=== PATIENT | female | born 1960 | race African-American/Black ===

== ENCOUNTER 2025-03-04 10:29 | Outpatient (AMB) | payer MEDICARE, SELFPAY ==
--- NOTE | 2025-03-04 10:43 | A.OFFVIS_ITS ---
Vital Signs 03/04/25 10:45 Height 5 ft 3 in Weight 277 lb 12.519 oz BMI 49.2 BP 144/82 H Blood Pressure Location Rt radial Position Sitting Pulse 95 Pulse Source Pulse Oximeter Pulse Oximetry (%) 98 Oxygen Delivery Method Room Air Intake Visit Reasons: tuan Allergies No Known Allergies [No Known Allergies*] Allergy (Unverified 03/04/25 10:48) HPI HPI tuan: Details: Mere is a pleasant 64-year-old female, never smoker, with underlying asthma, hypertension, TUAN, GERD and chronic kidney disease stage III. She is referred by PCP for pulmonary evaluation for asthma and TUAN. She reports asthma was diagnosed as an adult, never requiring intubation. She endorses second hand smoke exposure in the past. She did note that she required supplemental oxygen in 2020 after bernardino COVID, which was ultimately discontinued after a few months. She denies a need for supplemental oxygen at this time. She previously used Advair with good effect however has been without for quite some time and has been using albuterol MDI frequently for ongoing dyspnea, wheezing, chest tightness and dry cough. She denies seasonal allergies. She endorses occupational exposures working in a [employer] with paper dust exposure x 16 years. She reports sister with asthma otherwise denies any pertinent family history. She reports severe obstructive sleep apnea was diagnosed in 2020 in which she was started on CPAP therapy through [facility] sleep medicine. She reports she is consistently x1 year and had notable improvement in daytime fatigue, non restorative sleep, loud snoring and witnessed apneas. Unfortunately patient has been noncompliant over the last 3 years, however is motivated to initiate therapy. DME is [employer]. [facility], [facility] Social History (Updated 03/04/25 @ 10:48 by Kat Richard [facility]) Patient Tobacco Use Status: Never used Tobacco Review of Systems Const Denies chills, Denies excessive sweating, Denies fever(s), Denies headache(s) and Denies night sweats Eyes Denies dry eyes, Denies irritation and Denies itchy eyes ENT Reports Normal hearing present, Denies headache(s), Denies nasal congestion, Denies nasal discharge, Denies post nasal drip and Denies sore throat Card Denies chest pain, Denies chest pain at rest, Denies chest pain with activity, Denies claudication, Denies leg edema, Denies dyspnea, Reports dyspnea on exertion, Denies orthopnea and Denies paroxysmal nocturnal dyspnea Resp Denies chest congestion, Reports cough, Denies excessive phlegm production, Denies pain on inspiration, Denies pain with cough, Denies dyspnea, Reports dyspnea on exertion, Denies stridor and Reports wheezing Musc Denies myalgias Neuro Reports Normal hearing present and Denies headache(s) Endo Denies excessive sweating Regis/Lymph Denies lymphadenopathy Aller/Immun Denies itchy eyes, Denies seasonal rhinorrhea and Reports wheezing Physical Exam Vital Signs: Last Vital Signs Pulse 95 03/04/25 10:45 BP 144/82 H 03/04/25 10:45 Pulse Ox 98 03/04/25 10:45 Oxygen Delivery Method Room Air 03/04/25 10:45 BMI result Body Mass Index 49.2 Const General: cooperative, healthy appearing, comfortable, no acute distress, well developed and alert Nutritional Appearance: obese Orientation/consciousness: patient oriented x3 Limitations: no limitations HEENT Head: Yes normal to inspection, Yes normocephalic and Yes atraumatic Ears: hearing grossly normal bilaterally and external ears normal Eyes General: appearance normal, both eyes and all related structures Eyelids: Yes eyelids normal Sclerae: sclerae normal EOM: EOMs intact bilaterally Neck Neck: Yes normal visual inspection and Yes no lymphadenopathy Lymphatic: no lymphadenopathy noted Chest Chest palpation & inspection: normal inspection of the chest Resp Effort & Inspection: normal respiratory effort, able to speak in complete sentences, no audible wheezes, no cough, no stridor, not tachypneic, no tripod positioning and no use of accessory muscles Auscultation: clear to auscultation bilaterally Cardio Jugular venous distension: no JVD Rate: regular rate Rhythm: regular rhythm Skin Other: warm, dry General skin exam: no rashes or lesions noted Neuro General: patient oriented x3 Cranial nerves: Yes Normal hearing present Cognition (Neuro): normal cognition Gait exam (Neuro): Normal gait present Extrem General: Yes normal to inspection, Yes capillary refill normal, Yes no clubbing, cyanosis or edema and Yes no pedal edema Psych Appearance: grossly normal and well kempt Speech and movement: Normal speech and movement present and Clear speech present Affect: normal affect Attitude: cooperative Thought process: Normal thought process present Thought content: Normal thought content present Insight: Good insight present (Psych) Judgement: Good judgement present (Psych) Assessment & Plan Assessment & Plan (1) Asthma: Code(s): J45.909 - Unspecified asthma, uncomplicated Category: Medical (2) Severe obstructive sleep apnea: Code(s): G47.33 - Obstructive sleep apnea (adult) (pediatric) Category: Medical (3) Daytime somnolence: Code(s): R40.0 - Somnolence Category: Medical Plan Mere presents for pulmonary evaluation for known history of asthma and obstructive sleep apnea. She reports asthma has been suboptimally controlled on albuterol MDI, will start Advair. Discussed importance of good oral hygiene to prevent thrush. Will send for PFT. Patient with prior diagnosis of severe obstructive sleep apnea and motivated to use CPAP therapy. There has been about a 30 lb weight gain since her last study in 2020, will send her in for an in lab titration study to ensure optimal pressures. All questions were answered and patient is in agreement of plan. Will follow-up to review results or sooner if needed. Orders: Orders PFT pulmonary function test Today J45.909 - Unspecified asthma, uncomplicated RT PSG in-lab sleep titration Today G47.33 - Obstructive sleep apnea (adult) (pediatric), R40.0 - Somnolence Medications: New fluticasone propion-salmeterol 115-21 mcg/actuation (Advair HFA) 2 puffs inhalation Q12H 12 grams 3RF albuterol sulfate 90 mcg/actuation 2 puffs inhalation Q4-6H PRN 1 ea 3RF shortness of breath or wheezing Coding Level of Care Code New Pt Level 4 (63214) Diagnoses Asthma J45.909 Severe obstructive sleep apnea G47.33 Daytime somnolence R40.0
[2025-03-04 10:45] VITALS: BP 144/82; PULSE 95; O2SAT 98; BMI 49.2
--- OUTSIDE RECORDS SUMMARY | 2025-03-04 11:08 | XMS_ITS | Clinical Summary ---
Author Organization [facility] Address [address] [place] [address] Care Team Providers Care Hedis Registered Nurse Rn Name Role Phone Joy Enriquez MD Primary Care Provider [phone] Allergies No known active allergies Medications Medication Sig Dispensed Refills Start Date End Date Status hydroCHLOROthiazide (HYDRODIURIL) tablet 12.5 mg Take 12.5 mg by mouth daily. 1 03/09/2019 Active lisinopril (PRINIVIL,ZESTRIL) tablet 40 mg Take 40 mg by mouth daily. 1 03/01/2019 Active simvastatin (ZOCOR) tablet 40 mg Take 40 mg by mouth every night at bedtime. 1 03/09/2019 Active albuterol (PROVENTIL HFA;VENTOLIN HFA) 108 (90 Base) MCG/ACT inhaler Inhale 2 puffs into the lungs. 0 02/27/2019 Active Active Problems Problem Noted Date Diagnosed Date Arthritis of knee, left 03/27/2019 Social History Tobacco Use Types Packs/Day Years Used Date Smoking Tobacco: Never Smokeless Tobacco: Never Alcohol Use Standard Drinks/Week Comments No 0 (1 standard drink = 0.6 oz pur e alcohol) Sex and Gender Information Value Date Recorded Sex Assigned at Not on file Gender Identity Not on file Sexual Orientation Not on file Last Filed Vital Signs Vital Sign Reading Time Taken Comments Blood Pressure - - Pulse - - Temperature - - Respiratory Rate - - Oxygen Saturation - - Inhaled Oxygen Concentration - - Weight 102.1 kg (225 lb) 03/27/2019 10:54 AM EDT Height 160 cm (5' 3 ) 03/27/2019 10:54 AM EDT Body Mass Index 39.86 03/27/2019 10:54 AM EDT Plan of Treatment Health Maintenance Due Date Last Done Comments Hepatitis C Screening 1960 COVID-19 Vaccine (#1) 1959 Depression Screening 1971 BMI Counseling 1977 Preventative Health Evaluation 1977 Cervical Cancer Screening (P ap Smear) 1980 Colon Cancer Screening (Colonoscopy) 2004 Breast Cancer Screening (Mammogram) 2009 Shingrix-Zoster Vaccine (1 of 2) 2009 DTap / Tdap / Td (2 - Td or Tdap) 08/02/2023 013 Fall Risk Assessment 2024 Osteoporosis Screening (DEXA Scan) 2024 Pneumococcal Vaccine (1 of 1 - PCV) 2024 Influenza Vaccine (#1) 2024 10/06/2017 RSV Adult > 60+ Yrs or Pregn ant (1 - 1-dose 75+ series) 2034 Hepatitis B Vaccines Aged Out No long er eligible based on patient's age to complete this topic Pneumococcal Vaccine Aged Out No long er eligible based on patient's age to complete this topic RSV Ped < 20 months Aged Out No longe r eligible based on patient's age to complete this topic Care Teams Hedis Registered Nurse Rn Relationship Specialty Start Date End Date Joy Enriquez MD PCP - General Internal Medicine 02/27/19
--- OUTSIDE RECORDS SUMMARY | 2025-03-04 11:08 | XMS_ITS ---
Author Organization [facility] Care Team Providers Care Police Dispatcher Name Role Phone Masha Tobias Unavailable Unavailable George Livingston Unavailable Unavailable Emilee Mendez Unavailable Unavailable Gurvinder Grant Unavailable Unavailable Allergies and adverse reactions No Known Allergies Care Team Name Role Address Phone Organization Dates George Livingston PCP [address], [place], [address], [facility] (Office): [facility] 03/11/2020 - 04/08/2020 Masha Tobias [address], [place], [address], [place] (Office): [facility] 03/11/2020 - 04/08/2020 Emilee Mendez [address], [place], [address], [facility] (Office): [facility] 03/11/2020 - 04/08/2020 Gurvinder Grant [address], [place], [address], [place] (Office): : [facility] 03/11/2020 - 04/08/2020 Immunizations Immunization Status Vaccine Details Vaccine Code CodeSystem Date Notes Influenza cancelled Influenza, split virus, trivalent, injectable, contains preservative 141 CVX created date: 03/13/2020 consent date: 03/13/2020 Pneumococcal Conjugate Vaccine (PCV13) cancelled pneumococcal conjugate vaccine, 13 valent 133 CVX created date: 03/13/2020 consent date: 03/13/2020 Educated by on 03/13/2020 Pneumococcal Polysaccharide Vaccine (PPSV23) cancelled pneumococcal polysaccharide vaccine, 23 valent 33 CVX created date: 03/13/2020 consent date: 03/13/2020 Educated by on 03/13/2020 Mental Status Section Date Assessment Total Score Description 04/08/2020 BIMS 15 cognitively int act CAM 0 No delirium ind icated PHQ-9 00 03/17/2020 BIMS 15 cognitively int act CAM 0 No delirium ind icated PHQ-9 01 minimal depress ion Problems Problem # Description Date of onset Resolved Date Code CodeSystem Concern Status 1 ACUTE RESPIRATORY FAILURE WITH HYPOXIA 03/11/[address] active 2 COVID-19 03/11/[address] active 3 ESSENTIAL (PRIMARY) HYPERTENSION 03/11/[address] active 4 MORBID (SEVERE) OBESITY DUE TO EXCESS CALORIES 03/11/[address] active 5 MUSCLE WEAKNESS (GENERALIZED) 03/11/[address] active 6 OTHER ABNORMALITIES OF GAIT AND MOBILITY 03/11/[address] active 7 OTHER ASTHMA 03/11/[address] acti ve 8 OTHER VIRAL PNEUMONIA 03/11/[address] active 9 PNEUMONIA, UNSPECIFIED ORGANISM 03/11/[address] active 10 SHORTNESS OF BREATH 03/11/[address] active Reason for Referral No Reasons for Referral Entered Social History Social History Observation Description Start Date End Date Code Code System Current Smoking Status Tobacco smoking consumption unknown 865953533 SNOMED CT Sex Assigned At Female 1960 23759-6 [facility] Gender Identity Vital Signs Code Code System Vitals Name Values and Units Timing Information 28172-5 [facility] O2 % BldC Oximetry Value=96.0 Units= % 04/08/2020 73139-1 [facility] Pain Level Value=0.0 04/08/2020 13394-7 [facility] Weight Xtjwa=954.0 Units=Lbs 9279-1 [facility] Respiratory Rate Value=18.0 Units=/m in 04/08/2020 8462-4 [facility] Blood Pressure-Diastolic Value=79 Un its=mmHg 04/08/2020 8480-6 [facility] Blood Pressure-Systolic Goaoi=960 Un its=mmHg 04/08/2020 8310-5 [facility] Body Temperature Value=97.2 Units=?? F 04/08/2020 8867-4 [facility] Heart rate Value=83.0 Units=/min 8302-2 [facility] Height Value=66.0 Units=Inches 03/12/2020
--- OUTSIDE RECORDS SUMMARY | 2025-03-04 11:08 | XMS_ITS | Clinical Summary ---
Author Organization [facility] [address] [facility] Address [address] [place] [address] Phone Care Team Providers Care Teacher Of Gifted Students Name Role Phone Joy Enriquez MD Primary Care Provider [phone] Allergies No known active allergies Medications albuterol HFA (Ventolin HFA) 90 mcg/actuation inhaler Inhale 2 Puffs into the lungs every 4 hours as needed for Cough, Wheezing or Shortness of Breath for up to 30 days. 08/19/20 21 Active acetaminophen (TYLENOL) 500 mg tablet Take 2 tablets (1,000 mg total) by mouth every 8 (eight) hours. 30 tablet 11/14/19 25 Active lisinopril (PRINIVIL,ZEST RIL) 40 mg tablet Take 1 tablet (40 mg total) by mouth at bedtime. 90 tablet 12/25/19 25 Active simvastatin (ZOCOR) 40 mg tablet TAKE 1 TABLET BY MOUTH EVERYDAY AT BEDTIME 90 tablet 1 02/05/20 25 Active hydroCHLOROthi azide (HYDRODIURIL) 25 mg tablet Take 1 tablet (25 mg total) by mouth 1 (one) time each day. 30 tablet 02/13/20 25 Active simvastatin (ZOCOR) 40 mg tablet TAKE 1 TABLET BY MOUTH EVERYDAY AT BEDTIME 08/07/20 24 025 Discontinued hydroCHLOROthi azide (HYDRODIURIL) 25 mg tablet Take 1 tablet (25 mg total) by mouth 1 (one) time each day. 30 tablet 12/25/19 25 025 Discontinued Active Problems Problem Noted Date Diagnosed Date Abnormal ankle brachial index 08/27/2024 Overview (08/27/2024): Volume plethysmography to screen for PAD. Overall normal. Left side 1.09, normal. Right side 0.95, borderline. CKD (chronic kidney disease) stage 3, GFR 30-59 ml/min ([facility] V24, [facility] V28) 03/03/2023 Anxiety 09/01/2020 COVID-19 virus infection 04/16/2020 Ventral hernia 12/24/2019 Overview (08/27/2024): Repaired 08/05 - incarcerated, adhesion lysis, mesh placed Arthritis of knee, left 03/27/2019 Asthma 03/23/2017 Prediabetes 03/23/2017 Premature atrial complexes 03/23/2017 TUAN (obstructive sleep apnea) 03/31/2016 Overview (08/27/2024): [facility] Home Polysomnogram: Date 06/24/2017; AHI 18, Unclassified apneas 0; Obstructive apneas 8; Central apneas 6; Mixed apneas 0; hypopneas 83; average oxygen saturation 95% (lowest 84% without saturations <88% for 5% or more of study) Arthritis, degenerative 03/31/2015 Onychomycosis 08/02/2013 Cervical herniated disc 11/17/2010 Degenerative disc disease, lumbar 11/17/2010 Morbid obesity with BMI of 4 5.0-49.9, adult ([facility] V24, [facility] V28) 05/14/2009 Hypercholesterolemia 08/04/2007 Asymptomatic varicose veins 07/30/2007 Esophageal reflux 07/30/2007 Hypertension 02/23/2006 Encounters Date Type Department Care Team Description 12/24/2024 1:00 PM EDT Office Visit Adult Medicine [address] [phone] Nena Andrew PA Mild intermittent asthma, unspecified whether complicated (Primary Dx); Primary hypertension; Hypercholesterolemia; TUAN (obstructive sleep apnea); Prediabetes; Morbid obesity with BMI of 45.0-49.9, adult ([facility] V24, [facility] V28); Elevated random blood glucose level; Need for vaccination against Streptococcus pneumoniae; Need for prophylactic vaccination and inoculation against influenza from Last 3 Months Immunizations Name Administration Dates Next Due Hepatitis B (Reyxlmt-K-Fekvx , Recombivax HB-Adult) 19yo and older 07/02/2005,06/02/2005 Influenza Quadravalent, MDCK , 0.5ml, preservative free (Flucelvax) 6mo and older 11/17/2023,09/02/2022,08/06/2021 Influenza Quadravalent, MDCK , 0.5ml, with preservative (Flucelvax) 6mo and older 10/06/2017 Influenza Quadrivalent, 0.5m l, preservative free (Fluarix; FluLaval; Fluzone) ages 6mo and older (Afluria) 3yo and older 07/25/2020 Influenza trivalent, 0.5mL ( Fluad) 65yo and older 12/24/2024 Influenza trivalent, 0.5mL, preservative free (Fluarix; FluLaval; Fluzone) ages 6mo and older (Afluria) 3 years and older 07/25/2020,10/15/2016 Pneumococcal conjugate 20 va lent (Prevnar 20, PCV 20) 2mo and older 12/24/2024 Td Tetanus diptheria (Tdvax) 7yo and older 06/09,02/18/2003 Tdap Tetanus diptheria acell ular pertussis (Boostrix; Adacel) 7yo and older 08/02/2013 Surgical History Surgery Date Site/Laterality Comments HERNIA REPAIR PROCEDURE: KS REPAIR FIRST ABDOMINAL WALL HERNIA TUBAL LIGATION PROCEDURE: HISTORICAL TUBAL LIGATION CHOLECYSTECTOMY PROCEDURE: HISTORICAL CHOLECYSTECTOMY COLONOSCOPY 01/04/2011 PROCEDURE: KS COLONOSCOPY FLX DX W/COLLJ SPEC WHEN PFRMD; COMMENT: Normal OTHER SURGICAL HISTORY 05/2017 PROCEDURE: MAMMOGRAM KNEE SURGERY PROCEDURE: HISTORICAL KNEE SURGERY; COMMENT: meniscus repair Medical History Medical History Date Comments Esophageal reflux 07/30/2007 DX:Esophageal reflux Asymptomatic varicose veins 07/30/2007 DX:A symptomatic varicose veins Pure hypercholesterolemia 08/04/2007 DX:Pur e hypercholesterolemia Onychomycosis 08/02/2013 DX:Onychomycosis Morbid obesity (CMS/HCC V24, CMS/HCC V28) 009 DX:Morbid obesity (HCC) TUAN (obstructive sleep apnea) 03/31/2016 DX :TUAN (obstructive sleep apnea) COVID-19 virus infection 04/16/2020 DX:COVI D-19 virus infection Anxiety 09/01/2020 DX:Anxiety Family History Medical History Relation Name Comments Breast cancer Aunt p paternal Heart attack Father 74 Hypertension Mother elevated choles terol Cervical cancer Sister Colon cancer Neg Hx Ovarian cancer Neg Hx Relation Name Status Comments Aunt p Father Mother Sister Social History Tobacco Use Types Packs/Day Years Used Date Smoking Tobacco: Never Smokeless Tobacco: Never Tobacco Cessation:Counseling Given: Not Answered Alcohol Use Standard Drinks/Week Comments No 0 (1 standard drink = 0.6 oz pur e alcohol) Comments Unknown Sex and Gender Information Value Date Recorded Sex Assigned at Female 11/13/2024 10:55 PM EST Legal Sex Female 10:35 AM EST Gender Identity Female 11/13/2024 10:55 PM EST Sexual Orientation Straight 11/13/2024 10 :55 PM EST Obstetrics History Last Filed Vital Signs Vital Sign Reading Time Taken Comments Blood Pressure 128/78 12/24/2024 1:24 PM EDT Pulse 92 12/24/2024 1:24 PM EDT Temperature 36.6 ??C (97.8 ??F) 12/24/2024 1:24 PM ED T Respiratory Rate 14 12/24/2024 1:24 PM EDT Oxygen Saturation 95% 12/24/2024 1:24 PM EDT Inhaled Oxygen Concentration - - Weight 125 kg (275 lb) 12/24/2024 1:24 PM EDT Height 160 cm (5' 3 ) 12/24/2024 1:24 PM EDT Body Mass Index 48.71 12/24/2024 1:24 PM EDT Plan of Treatment Upcoming Encounters Date Type Department Care Team (Late st Contact Info) Description 05/16/2025 10:00 AM EDT Appointment Radiology Department [address] [phone] Health Maintenance Due Date Last Done Comments COVID-19 Vaccine (#1) 1965 Hepatitis B Vaccines (3 of 3 - 19+ 3-dose series) 12/03/2005 07/02/2005, 06/02/2005 Zoster Vaccines (1 of 2) 2009 Cervical Cancer Screening: Pap Smear 11/05/2016 11/05/2013, 11/05/2013 RSV Immunization Adult Patients (1 - Risk 60-74 years 1-dose series) 2019 Depression Screening 09/25/2022 Medicare Annual Wellness Visit 09/25/2022 Social Influencers of Health Screening 09/25/2022 Falls Risk Assessment 2024 Hypertension/CHF/CAD Annual BMP Blood Test 11/13/2025 11/13/2024, 11/17/2023 Breast Cancer Screening 05/04/2026 05/04/20, 05/04/2024, 03/19/2023, Additional history exists Cholesterol Screening (Lipid Panel) 11/17/2028 11/17/2023 Colorectal Cancer Screening: Colonoscopy 04/22/2031 04/22/2021 DTaP,Tdap,and Td Vaccines (4 - Td or Tdap) 06/09/2033 06/09/2023, 08/02/2013, 02/18/2003 Osteoporosis Screening (Bone Density Screening) 09/18/2034 09/18/2024 Hepatitis C Screening Completed 09/29/2009 Influenza Vaccine Completed 12/24/2024, , 09/02/2022, Additional history exists Pneumococcal Vaccine: 50+ Years Completed 12/24/2024 Pneumococcal Vaccine: Pediatrics (0 to 5 Years) and At-Risk Patients (6 to 64 Years) Completed 12/24/2024 HIB Vaccines Aged Out No longer eligi ble based on patient's age to complete this topic HPV Vaccines Aged Out No longer eligi ble based on patient's age to complete this topic Hepatitis A Vaccines Aged Out No long er eligible based on patient's age to complete this topic IPV Vaccines Aged Out No longer eligi ble based on patient's age to complete this topic MMR Vaccines Aged Out No longer eligi ble based on patient's age to complete this topic Meningococcal ACWY Vaccine Aged Out N o longer eligible based on patient's age to complete this topic Meningococcal B Vaccine Aged Out No l onger eligible based on patient's age to complete this topic RSV Immunization Patients Under 20 months Aged Out No longer eligible based on patient's age to complete this topic Varicella Vaccines Aged Out No longer eligible based on patient's age to complete this topic Procedures Procedure Name Priority Date/Time Associated Diagnosis Comments COMPREHENSIVE METABOLIC PANEL STAT 11/13/2024 6:54 PM EST BD BONE DENSITY DXA AXIAL SKELETON Routine 09/18/2024 2:24 PM EST Asymptomatic menopausal state SCREENING MAMMOGRAPHY BI 2-VIEW BREAST INC CAD Routine 05/04/2024 1:18 PM EDT Encounter for screening mammogram for malignant neoplasm of breast LIPID PANEL Routine 11/17/2023 HM COLONOSCOPY Routine 04/22/2021 HM HPV Routine 11/05/2013 HM HEPATITIS C SCREENING Routine 09/29/2009 from Last 3 Months or Most Recently Relevant to Health Maintenance Results * (ABNORMAL) Comprehensive metabolic panel (11/13/2024 6:54 PM EST) Sodium 138 133 - 145 mmol/L LAB CHEMISTRY METHOD 11/13/2024 7:46 PM [facility] Potassium 3.3(L) 3.5 - 5.5 mmol/L LAB CHEMISTRY METHOD 11/13/2024 7:46 PM [facility] Chloride 107 96 - 110 mmol/L LAB CHEMISTRY METHOD 11/13/2024 7:46 PM [facility] CO2 28 21 - 32 mmol/L LAB CHEMISTRY METHOD 11/13/2024 7:46 PM [facility] Anion Gap 3 3 - 11 LAB CHEMISTRY METHOD 11/13/2024 7:46 PM [facility] Glucose 104(H) 70 - 100 mg/dL LAB CHEMISTRY METHOD 11/13/2024 7:46 PM [facility] BUN 11 5 - 25 mg/dL LAB CHEMISTRY METHOD 11/13/2024 7:46 PM [facility] Creatinine 1.00 0.50 - 1.10 mg/dL LAB CHEMISTRY METHOD 11/13/2024 7:46 PM EST [facility] eGFR 63 >=60 mL/min/1. 73m2 LAB CHEMISTRY METHOD 11/13/2024 7:46 PM [facility] Comment:Calculation based on the??Chronic Kidney Disease Epidemiology Collaboration (CKD-EPI) equation refit??without adjustment for race. BUN/Creatinine Ratio 11.0 LAB CHEMISTRY METHOD 11/13/2024 7:46 PM [facility] Calcium 9.4 8.5 - 10.5 mg/dL LAB CHEMISTRY METHOD 11/13/2024 7:46 PM [facility] AST (SGOT) 62(H) 10 - 42 unit/L LAB CHEMISTRY METHOD 11/13/2024 7:46 PM [facility] ALT (SGPT) 36 10 - 60 unit/L LAB CHEMISTRY METHOD 11/13/2024 7:46 PM [facility] Alkaline Phosphatase 84 42 - 121 unit/L LAB CHEMISTRY METHOD 11/13/2024 7:46 PM [facility] Total Protein 7.1 6.0 - 8.0 g/dL LAB CHEMISTRY METHOD 11/13/2024 7:46 PM [facility] Albumin 3.4 3.2 - 5.0 g/dL LAB CHEMISTRY METHOD 11/13/2024 7:46 PM [facility] Total Bilirubin 0.4 0.0 - 1.4 mg/dL LAB CHEMISTRY METHOD 11/13/2024 7:46 PM [facility] Blood Venous blood specimen / Unknown Venipuncture / Unknown 11/13/2024 6:54 PM EST 11/13/2024 7:08 PM EST us Kendrick Bailey MD LAB BLOOD ORDERABLES Final Res ult [facility] [address] [place] [address], * BD Bone Density DXA Axial Skeleton (09/18/2024 2:24 PM EST) Anatomical Region Laterality Modality Wrist, Hip, L-spine Bone Densito metry 09/18/2024 2:55 PM EST Impressions 09/18/2024 2:56 PM EST Impression: This patient is considered to have osteopenia by WHO criteria. This patient has a less than 0.1% risk of major osteoporotic fracture and a less than 0.1% risk of hip fracture over the next 10 years. (World Health Organization Fracture Risk Assessment) [facility] Department of Internal Medicine recommends using National Osteoporosis Foundation (NOF) guidelines in treatment decisions related to osteoporosis. NOF guidelines suggest considering treatment for postmenopausal women and men aged 50 or older presenting with the following: History of hip or vertebral fracture. T-score = -2.5 (DXA) at the femoral neck, total hip, or spine, after appropriate evaluation to exclude secondary causes. Low bone mass (T-score between -1.0 and -2.5 at the femoral neck or spine) AND a 10-year probability of a hip fracture = 3% OR a 10-year probability of a major osteoporosis-related fracture = 20% based on the [place]-adapted WHO algorithm Please note that all treatment decisions require clinical judgment and consideration of individual patient factors, including patient preferences, co-morbidities, previous drug use, risk factors not captured in the FRAX model (e.g., frailty, falls, vitamin D deficiency, increased bone turnover, interval significant decline in bone density) and possible under- or over-estimation of fracture risk by FRAX. Optional alternative screening schedule based on halima Gonzalez., [facility] November 04, 2011 for patients with osteopenia (based on hip BMD T-score) is as follows: * ??advanced osteopenia (T scores -2.00 to -2.49), BMD testing every year * ??moderate osteopenia (T scores -1.50 to -1.99), BMD testing every 5 years mild osteopenia or normal BMD (T scores -1.50 and higher), BMD testing every 15 years -------- FINAL REPORT -------- Dictated By: Gretta Christie Dictated Date: 09/18/2024 14:55 ET Assigned Physician: Gretta Christie Reviewed and Electronically Signed By: Gretta Christie Signed Date: 09/18/2024 14:56 ET Workstation ID: [id number] Transcribed By: Self Edit Transcribed Date: 09/18/2024 14:55 ET Narrative 09/18/2024 2:56 PM EST BONE DENSITY (DEXA) ? Lumbar Spine T-score is 1.2. ?? (SD relative to 20-29 y/o adult) Z-score is 2.3. ??(SD relative to age matched peers) This is considered normal by WHO criteria. Left Hip T-score is -1.2. Z-score is -0.4. This is considered osteopenia by WHO criteria. Lateral view of the spine demonstrates vertebral heights to be maintained. Procedure Note Gretta Christie MD - 09/18/2024 BONE DENSITY (DEXA) Lumbar Spine T-score is 1.2. (SD relative to 20-29 y/o adult) Z-score is 2.3. (SD relative to age matched peers) This is considered normal by WHO criteria. Left Hip T-score is -1.2. Z-score is -0.4. This is considered osteopenia by WHO criteria. Lateral view of the spine demonstrates vertebral heights to bemaintained. IMPRESSION: Impression: This patient is considered to have osteopenia by WHO criteria. Thispatient has a less than 0.1% risk of major osteoporotic fracture and aless than 0.1% risk of hip fracture over the next 10 years. (World HealthOrganization Fracture Risk Assessment) [facility] Department of Internal Medicine recommendsusing National Osteoporosis Foundation (NOF) guidelines in treatmentdecisions related to osteoporosis. NOF guidelines suggest consideringtreatment for postmenopausal women and men aged 50 or older presentingwith the following: History of hip or vertebral fracture. T-score = -2.5 (DXA) at the femoral neck, total hip, or spine, afterappropriate evaluation to exclude secondary causes. Low bone mass (T-score between -1.0 and -2.5 at the femoral neck or spine)AND a 10-year probability of a hip fracture = 3% OR a 10-year probabilityof a major osteoporosis-related fracture = 20% based on the [place]-adapted WHOalgorithm Please note that all treatment decisions require clinical judgment andconsideration of individual patient factors, including patientpreferences, co-morbidities, previous drug use, risk factors not capturedin the FRAX model (e.g., frailty, falls, vitamin D deficiency, increasedbone turnover, interval significant decline in bone density) and possibleunder- or over-estimation of fracture risk by FRAX. Optional alternative screening schedule based on lay Gonzalez al., [place] 2011 for patients with osteopenia (based on hip BMD T-score)is as follows: * advanced osteopenia (T scores -2.00 to -2.49), BMD testing every year * moderate osteopenia (T scores -1.50 to -1.99), BMD testing every 5years mild osteopenia or normal BMD (T scores -1.50 and higher), BMD testingevery 15 years -------- FINAL REPORT -------- Dictated By: Gretta Christie Dictated Date: 09/18/2024 14:55 ET Assigned Physician: Gretta Christie Reviewed and Electronically Signed By: Gretta Christie Signed Date: 09/18/2024 14:56 ET Workstation ID: [id number] Transcribed By: Self Edit Transcribed Date: 09/18/2024 14:55 ET Joy Enriquez MD IMG DXA PROCEDURES Final Result * SCREENING MAMMOGRAPHY BI 2-VIEW BREAST INC CAD (05/04/2024 1:18 PM EDT) Anatomical Region Laterality Modality Radiographic Patricia ging 03/19/2023 1:37 PM EDT Narrative 05/07/2024 8:16 AM EDT This is a summary report. The complete report is available in the patient's medical record. If you cannot access the medical record, please contact the sending organization for a detailed fax or copy. Exam: Screening mammogram Findings: Digital bilateral full-field screening mammography is performed with tomosynthesis and interpreted with the aid of computer-aided detection. ??Comparison is made with 03/19/2023 and as far back as 07/02/2019. Breast parenchyma is composed of scattered fibroglandular densities. ??No new suspicious mass, architectural distortion, or suspicious calcifications. Impression: No mammographic evidence of malignancy. BI-RADS 1 - negative Procedure Note Angely Coburn MD - 08/01/2024 This is a summary report. The complete report is available in thepatient's medical record. If you cannot access the medical record, pleasecontact the sending organization for a detailed fax or copy. Exam: Screening mammogram Findings: Digital bilateral full-field screening mammography is performedwith tomosynthesis and interpreted with the aid of computer-aideddetection. Comparison is made with 03/19/2023 and as far back as07/02/2019. Breast parenchyma is composed of scattered fibroglandular densities. Nonew suspicious mass, architectural distortion, or suspiciouscalcifications. Impression: No mammographic evidence of malignancy. BI-RADS 1 - negative Anjelica ALVES IMG XR PROCEDURES Final Result * (ABNORMAL) Lipid panel (11/17/2023) [facility] LDL/HDL Ratio 3 0 - 4 Triglycerides 97 0 - 150 mg/dL Cholesterol 206(A) 0 - 200 mg/dL HDL 60 >=40 mg/dL LDL Cholesterol 127(A) 0 - 100 mg/dL Blood Venous blood specimen / Unknown Result [facility] Provider LAB BLOOD ORDERABLES Parisa gomez Result * Colonoscopy (04/22/2021) [facility] Colonoscopy No Interpretation , Abstracted Anatomical Region Laterality Modality Other Result [facility] Provider HEALTH MAINTENANCE Final Result * Cervical Cancer Screening: HPV (11/05/2013) [facility] Cervical Cancer Screening: HPV Negative, Abstracted Result [facility] Provider HEALTH MAINTENANCE Final Result * Hepatitis C Screening (09/29/2009) [facility] Hepatitis C Screening Abstracted us Historical Provider HEALTH MAINTENANCE Final Result from Last 3 Months or Most Recently Relevant to Health Maintenance Insurance [employer] MEDICARE [employer]VANTAGE Care Teams Teacher Of Gifted Students Relationship Specialty Start Date End Date Joy Enriquez MD [address] [place] [id number] PCP - General 05/31/05
== END 2025-03-04 11:16 | disposition home or self-care (01) ==
LOC: HO.HPS 10:30
PROVIDERS: PCP Internal Medicine; Referring Provider Internal Medicine; Visit Provider Nurse Practitioner Family
DX: J45.909 Unspecified asthma, uncomplicated (principal); G47.33 Obstructive sleep apnea (adult) (pediatric); R40.0 Somnolence
CPT/HCPCS: 99204

== ENCOUNTER → 2025-03-04 10:29 | Outpatient (BNVA) | payer MEDICARE, SELFPAY | PROVIDERS: PCP Internal Medicine; Referring Provider Internal Medicine; Visit Provider Nurse Practitioner Family | DX: J45.909 Unspecified asthma, uncomplicated (principal); G47.33 Obstructive sleep apnea (adult) (pediatric); R40.0 Somnolence | CPT/HCPCS: 99202 ==

== ENCOUNTER → 2025-03-25 20:30 | Outpatient (REF) | payer MEDICARE, SELFPAY ==
--- OUTSIDE RECORDS SUMMARY | 2025-03-25 23:21 | XMS_ITS | Clinical Summary ---
Author Organization [facility] Address [address] [place] [address] Care Team Providers Care Painter Airbrush Name Role Phone Joy Enriquez MD Primary Care Provider [phone] Allergies No known active allergies Medications Medication [...] of 1 - PCV) 2024 Influenza Vaccine (Season Ended) 2025 10/06/20 17 RSV Adult > 60+ Yrs or Pregn [...] age to complete this topic Care Teams Painter Airbrush Relationship Specialty Start Date End Date Joy Enriquez MD PCP - General Internal Medicine 02/27/19
== END ==
LOC: HO.SL 20:30
PROVIDERS: PCP Internal Medicine; Visit Provider Nurse Practitioner Family
DX: G47.33 Obstructive sleep apnea (adult) (pediatric) (principal); R40.0 Somnolence
CPT/HCPCS: 95810; 95811

== ENCOUNTER → 2025-03-25 20:30 | Outpatient (BNV) | payer MEDICARE, SELFPAY | PROVIDERS: PCP Internal Medicine; Visit Provider Internal Medicine | DX: R06.83 Snoring (principal) | CPT/HCPCS: 95811 ==

== ENCOUNTER 2025-04-29 09:59 | Outpatient (AMB) | payer MEDICARE, SELFPAY ==
[2025-04-29 10:14] VITALS: BP 139/63; PULSE 98; RESP 22; O2SAT 95; BMI 48.2
--- NOTE | 2025-04-29 10:14 | A.OFFVIS_ITS ---
Vital Signs 04/29/25 10:14 Height 5 ft 3 in Weight 272 lb 4.334 oz BMI 48.2 BP 139/63 Blood Pressure Location Rt brachial Position Sitting Respiration 22 H Pulse 98 Pulse Source Pulse Oximeter Pulse Oximetry (%) 95 Oxygen Delivery Method Room Air Intake Visit Reasons: Obstructive sleep apnea Illusionist Required: No Allergies No Known Allergies (No Known Allergies*) Allergy (Verified 04/29/25 10:14) HPI HPI Obstructive sleep apnea: Details: Mere is a pleasant 65-year-old female, never smoker, with underlying asthma, hypertension, TUAN, GERD and chronic kidney disease stage III. She reports experiencing shortness of breath primarily when walking or engaging in physical activity, with associated dry cough which has been exacerbated since bernardino COVID-19 in 2019. The patient has a history of asthma, which predates her COVID- 19 infection, and she has been using Advair, although she reports no improvement in symptoms with the current dosage. Regarding her sleep apnea, the patient underwent a sleep study which confirmed mild sleep apnea with an apnea-hypopnea index of 12.8 and oxygen desaturation below 88% for 40 minutes. She has been using a BiPAP machine, which is over three years old and reports issues with the machine's pressure settings. The patient previously used a BiPAP machine and is now advised to switch to CPAP mode with auto pressures. Prior PSG 2020 revealed severe obstructive sleep apnea. [facility] Social History (Updated 03/04/25 @ 10:48 by Kat Richard CMA) Patient Tobacco Use Status: Never used Tobacco Review of Systems Const Denies chills, Denies excessive sweating, Denies fever(s), Denies headache(s) and Denies night sweats Eyes Denies dry eyes, Denies irritation and Denies itchy eyes ENT Reports Normal hearing present, Denies headache(s), Denies nasal congestion, Denies nasal discharge, Denies post nasal drip and Denies sore throat Card Denies chest pain, Denies chest pain at rest, Denies chest pain with activity, Denies claudication, Denies leg edema, Denies dyspnea, Reports dyspnea on exertion, Denies orthopnea and Denies paroxysmal nocturnal dyspnea Resp Denies chest congestion, Reports cough, Denies excessive phlegm production, Denies pain on inspiration, Denies pain with cough, Denies dyspnea, Reports dyspnea on exertion, Denies stridor and Reports wheezing Musc Denies myalgias Neuro Reports Normal hearing present and Denies headache(s) Endo Denies excessive sweating Regis/Lymph Denies lymphadenopathy Aller/Immun Denies itchy eyes, Denies seasonal rhinorrhea and Reports wheezing Physical Exam Vital Signs: Last Vital Signs Pulse 98 04/29/25 10:14 Resp 22 H 04/29/25 10:14 BP 139/63 04/29/25 10:14 Pulse Ox 95 04/29/25 10:14 Oxygen Delivery Method Room Air 04/29/25 10:14 BMI result Body Mass Index 48.2 Const General: cooperative, healthy appearing, comfortable, no acute distress, well developed and alert Nutritional Appearance: obese Orientation/consciousness: patient oriented x3 Limitations: no limitations HEENT Head: Yes normal to inspection, Yes normocephalic and Yes atraumatic Ears: hearing grossly normal bilaterally and external ears normal Eyes General: appearance normal, both eyes and all related structures Eyelids: Yes eyelids normal Sclerae: sclerae normal EOM: EOMs intact bilaterally Neck Neck: Yes normal visual inspection and Yes no lymphadenopathy Lymphatic: no lymphadenopathy noted Chest Chest palpation & inspection: normal inspection of the chest Resp Effort & Inspection: normal respiratory effort, able to speak in complete sen tences, no audible wheezes, no cough, no stridor, not tachypneic, no tripod positioning and no use of accessory muscles Auscultation: clear to auscultation bilaterally Cardio Jugular venous distension: no JVD Rate: regular rate Rhythm: regular rhythm Skin Other: warm, dry General skin exam: no rashes or lesions noted Neuro General: patient oriented x3 Cranial nerves: Yes Normal hearing present Cognition (Neuro): normal cognition Gait exam (Neuro): Normal gait present Extrem General: Yes normal to inspection, Yes capillary refill normal, Yes no clubbing, cyanosis or edema and Yes no pedal edema Psych Appearance: grossly normal and well kempt Speech and movement: Normal speech and movement present and Clear speech present Affect: normal affect Attitude: cooperative Thought process: Normal thought process present Thought content: Normal thought content present Insight: Good insight present (Psych) Judgement: Good judgement present (Psych) Assessment & Plan Assessment & Plan (1) Asthma: Code(s): J45.909 - Unspecified asthma, uncomplicated Category: Medical (2) Obstructive sleep apnea: Code(s): G47.33 - Obstructive sleep apnea (adult) (pediatric) Category: Medical (3) Nocturnal hypoxemia: Code(s): G47.34 - Idiopathic sleep related nonobstructive alveolar hypoventilation Category: Medical (4) Daytime somnolence: Code(s): R40.0 - Somnolence Category: Medical Plan Will increase Advair from 115 mcg to 230 mcg with instructions to use two puffs twice a day and to rinse the mouth after use. A chest x-ray is recommended to assess lung condition, given the worsening of symptoms [id number]. The patient is advised to undergo a PFT scheduled for May 23 to evaluate lung function further. For sleep apnea, a new order will be sent to adjust the CPAP machine settings to auto pressures 6-20 cmH20 to [employer]. Once established on CPAP therapy, will send for overnight oximetry to ensure resolution of nocturnal hypoxemia with CPAP use. The patient will be monitored closely, with a follow- up scheduled in 8 to 10 weeks to review CPAP reports and assess the effectiveness of the treatment adjustments. All questions were answered and patient is in agreement of plan. Orders: Orders XR chest 2V Today R05.3 - Chronic cough Medications: New fluticasone propion-salmeterol 230-21 mcg/actuation (Advair HFA) 2 puffs inhalation Q12H 12 grams 6RF Discontinued fluticasone propion-salmeterol 115-21 mcg/actuation (Advair HFA) Discontinued Reason: Patient Completed Course 2 puffs inhalation Q12H 12 grams 3RF Coding Level of Care Code Est Pt Level 4 (52682) Diagnoses Asthma J45.909 Obstructive sleep apnea G47.33 Nocturnal hypoxemia G47.34 Daytime somnolence R40.0
--- OUTSIDE RECORDS SUMMARY | 2025-04-29 10:36 | XMS_ITS | Clinical Summary ---
Author Organization [facility] Address [address] [place] [address] Care Team Providers Care Day Care Home Mother Name Role Phone Joy Enriquez MD Primary Care Provider [phone] Allergies No known active allergies Medications Medication [...] BMI Counseling 1977 Preventative Health Evaluation 1977 Colon Cancer Screening (Colonoscopy) 2004 Breast Cancer Screening (Mammogram) 2009 Shingrix-Zoster Vaccine (1 of 2) 2009 DTap / Tdap / Td (2 - Td or Tdap) 08/02/2023 013 Fall Risk Assessment 2024 Osteoporosis Screening (DEXA Scan) 2024 Pneumococcal Vaccine (1 of 1 - PCV) 2024 Influenza Vaccine (#1) 2025 10/06/2017 RSV Adult > 60+ Yrs or Pregn ant (1 - 1-dose 75+ series) 2034 Hepatitis B Vaccines Aged Out No long er eligible based on patient's age to complete this topic RSV Ped < 20 months Aged Out No longe r eligible based on patient's age to complete this topic Care Teams Day Care Home Mother Relationship Specialty Start Date End Date Joy Enriquez MD PCP - General Internal Medicine 02/27/19
--- OUTSIDE RECORDS SUMMARY | 2025-04-29 10:36 | XMS_ITS | Clinical Summary ---
Author Organization [facility] [address] [facility] Address [address] [place] [address] Phone Care Team Providers Care Top Distribution Executive Name Role Phone Joy Enriquez MD Primary Care Provider [phone] Allergies No known active allergies Medications albuterol HFA (Ventolin HFA) 90 mcg/actuation inhaler Inhale 2 Puffs into the lungs every 4 hours as needed for Cough, Wheezing or Shortness of Breath for up to 30 days. 1 Active acetaminophen (TYLENOL) 500 mg tablet Take 2 tablets (1,000 mg total) by mouth every 8 (eight) hours. 30 tablet 5 Active lisinopril (PRINIVIL,ZESTR IL) 40 mg tablet Take 1 tablet (40 mg total) by mouth at bedtime. 90 tablet 5 Active simvastatin (ZOCOR) 40 mg tablet TAKE 1 TABLET BY MOUTH EVERYDAY AT BEDTIME 90 tablet 1 5 Active hydroCHLOROthia zide (HYDRODIURIL) 25 mg tablet Take 1 tablet (25 mg total) by mouth 1 (one) time each day. 90 tablet 5 Active Active Problems Problem Noted Date Diagnosed Date Abnormal ankle brachial index 08/27/2024 Overview (08/27/2024): Volume plethysmography to screen for PAD. Overall normal. Left side 1.09, normal. Right side 0.95, borderline. CKD (chronic kidney disease) stage 3, GFR 30-59 ml/min (CMS/HCC V24, CMS/HCC V28) 03/03/2023 Anxiety 09/01/2020 COVID-19 virus infection 04/16/2020 Ventral hernia 12/24/2019 Overview (08/27/2024): Repaired 08/05 - incarcerated, adhesion lysis, mesh placed Arthritis of knee, left 03/27/2019 Asthma 03/23/2017 Prediabetes 03/23/2017 Premature atrial complexes 03/23/2017 TUAN (obstructive sleep apnea) 03/31/2016 Overview (08/27/2024): [facility] Home Polysomnogram: Date 06/24/2017; AHI 18, Unclassified apneas 0; Obstructive apneas 8; Central apneas 6; Mixed apneas 0; hypopneas 83; average oxygen saturation 95% (lowest 84% without saturations <88% for 5% or more of study) Arthritis, degenerative 03/31/2015 Onychomycosis 08/02/2013 Cervical herniated disc 11/17/2010 Degenerative disc disease, lumbar 11/17/2010 Morbid obesity with BMI of 4 5.0-49.9, adult ([facility] V24, [facility] V28) 05/14/2009 Hypercholesterolemia 08/04/2007 Asymptomatic varicose veins 07/30/2007 Esophageal reflux 07/30/2007 Hypertension 02/23/2006 Immunizations Name Administration Dates Next Due Hepatitis B (Otpfmxh-S-Ezwbr , Recombivax HB-Adult) 19yo and older 07/02/2005,06/02/2005 [...] Surgery Date Site/Laterality Comments HERNIA REPAIR PROCEDURE: RI REPAIR FIRST ABDOMINAL WALL HERNIA TUBAL LIGATION PROCEDURE: HISTORICAL TUBAL LIGATION CHOLECYSTECTOMY PROCEDURE: HISTORICAL CHOLECYSTECTOMY COLONOSCOPY 01/04/2011 PROCEDURE: RI COLONOSCOPY FLX DX W/COLLJ SPEC WHEN PFRMD; [...] 92 12/24/2024 1:24 PM EDT Temperature 36.6 C (97.8 F) 12/24/2024 1:24 PM EDT Respiratory Rate 14 12/24/2024 1:24 PM EDT [...] 05/16/2025 10:00 AM EDT Appointment Radiology Department - [address] [phone] 06/28/2025 9:45 AM EDT Office Visit Adult Medicine [address] [phone] Joy Enriquez MD [address] [place] [id number] Health Maintenance Due Date Last Done Comments COVID-19 Vaccine (#1) 1964 Zoster Vaccines (1 of 2) 1978 Hepatitis B Vaccines (3 of 3 - 19+ 3-dose series) 12/03/2005 07/02/2005, 06/02/2005 RSV Immunization Adult Patients (1 - Risk 60-74 years 1-dose series) 2019 Depression Screening 09/25/2022 Medicare Annual Wellness Visit 09/25/2022 Social Influencers of Health Screening 09/25/2022 Falls Risk Assessment 2024 Influenza Vaccine (#1) 2025 , 11/17/2023, 09/02/2022, Additional history exists Hypertension/CHF/CAD Annual BMP Blood Test 03/06/2026 03/06/2025, 11/13/2024, 11/17/2023 Breast Cancer Screening 05/04/2026 05/04/20 24, 05/04/2024, 03/19/2023, Additional history exists Cholesterol Screening (Lipid Panel) 03/06/2030 03/06/2025, 11/17/2023 Colorectal Cancer Screening: Colonoscopy 04/22/2031 04/22/2021 DTaP,Tdap,and Td Vaccines (4 - Td or Tdap) 06/09/2033 06/09/2023, 08/02/2013, 02/18/2003 Osteoporosis Screening (Bone Density Screening) 09/18/2034 09/18/2024 Hepatitis C Screening Completed 09/29/2009 Pneumococcal Vaccine: 50+ Years Completed 12/24/2024 HIB Vaccines Aged Out No [...] Procedure Name Priority Date/Time Associated Diagnosis Comments CBC WITH AUTO DIFFERENTIAL Routine 03/06/2025 10:33 AM EDT Mild intermittent asthma, unspecified whether complicated Primary hypertension Hypercholesterolemia TUAN (obstructive sleep apnea) Prediabetes Morbid obesity with BMI of 45.0-49.9, adult (CMS/HCC V24, CMS/HCC V28) LIPID PANEL WITH REFLEX TO DIRECT LDL Routine 03/06/2025 10:33 AM EDT Mild intermittent asthma, unspecified whether complicated Primary hypertension Hypercholesterolemia TUAN (obstructive sleep apnea) Prediabetes Morbid obesity with BMI of 45.0-49.9, adult (CMS/HCC V24, CMS/HCC V28) COMPREHENSIVE METABOLIC PANEL Routine 03/06/2025 10:33 AM EDT Mild intermittent asthma, unspecified whether complicated Primary hypertension Hypercholesterolemia TUAN (obstructive sleep apnea) Prediabetes Morbid obesity with BMI of 45.0-49.9, adult ([facility] V24, [facility] V28) CBC AND DIFFERENTIAL Routine 03/06/2025 10:33 AM EDT Mild intermittent asthma, unspecified whether complicated Primary hypertension Hypercholesterolemia TUAN (obstructive sleep apnea) Prediabetes Morbid obesity with BMI of 45.0-49.9, adult ([facility] V24, [facility] V28) HEMOGLOBIN A1C Routine 03/06/2025 10:33 AM EDT Elevated random blood glucose level BD BONE DENSITY DXA AXIAL SKELETON Routine 09/18/2024 2:24 PM EST Asymptomatic menopausal state SCREENING MAMMOGRAPHY BI 2-VIEW BREAST INC CAD Routine 05/04/2024 1:18 PM EDT Encounter for screening mammogram for malignant neoplasm of breast COLONOSCOPY Routine 04/22/2021 HEPATITIS C SCREENING Routine 09/29/2009 from Last 3 Months or Most Recently Relevant to Health Maintenance Results * Lipid panel with reflex to direct LDL (03/06/2025 10:33 AM EDT) Cholesterol 163 0 - 200 mg/dL LAB CHEMISTRY METHOD 03/06/2025 12:32 PM EDT [facility] Triglycerides 76 0 - 150 mg/dL LAB CHEMISTRY METHOD 03/06/2025 12:32 PM EDT [facility] HDL 60 >=40 mg/dL LAB CHEMISTRY METHOD 03/06/2025 12:32 PM EDT [facility] LDL Calculated 88 0 - 100 mg/dL LAB CHEMISTRY METHOD 03/06/2025 12:32 PM T [facility] VLDL Cholesterol Kj 15.2 mg/dL LAB CHEMISTRY METHOD 03/06/2025 12:32 PM EDT [facility] Non HDL Chol. (LDL+VLDL) 103 <145 mg/dL LAB CHEMISTRY METHOD 03/06/2025 12:32 PM EDT [facility] Chol/HDL Ratio 2.7 0.0 - 4.4 LAB CHEMISTRY METHOD 03/06/2025 12:32 PM T [facility] Blood Venous blood specimen / Unknown Venipuncture / Unknown 03/06/2025 10:33 AM EDT 03/06/2025 10:33 AM EDT us Nena ALVES LAB BLOOD ORDERABLES Final Re sult [facility] [address] [place] [address], [place] [phone] * (ABNORMAL) CBC auto differential (03/06/2025 10:33 AM EDT) WBC 4.4(L) 4.8 - 10.8 K/mcL LAB HEMETOLOGY METHOD 03/06/2025 12:13 PM EDT [facility] RBC 4.60 3.80 - 4.80 M/mcL LAB HEMETOLOGY METHOD 03/06/2025 12:13 PM [facility] Hemoglobin 13.8 11.5 - 16.0 g/dL LAB HEMETOLOGY METHOD 03/06/2025 12:13 PM EDT [facility] Hematocrit 41.7 35.0 - 47.0 % LAB HEMETOLOGY METHOD 03/06/2025 12:13 PM [facility] MCV 90.8 79.0 - 98.0 FL LAB HEMETOLOGY METHOD 03/06/2025 12:13 PM [facility] MCH 30.1 27.0 - 32.0 pcg LAB HEMETOLOGY METHOD 03/06/2025 12:13 PM EDT [facility] MCHC 33.1 32.0 - 37.0 g/dL LAB HEMETOLOGY METHOD 03/06/2025 12:13 PM [facility] RDW 13.0 11.0 - 15.0 % LAB HEMETOLOGY METHOD 03/06/2025 12:13 PM [facility] Platelets 177 130 - 400 K/mcL LAB HEMETOLOGY METHOD 03/06/2025 12:13 PM [facility] MPV 11.6(H) 7.0 - 11.0 FL LAB HEMETOLOGY METHOD 03/06/2025 12:13 PM [facility] NRBC 0.0 <1.0 % LAB HEMETOLOGY METHOD 03/06/2025 12:13 PM [facility] NRBC Absolute 0.00 <0.10 K/mcL LAB HEMETOLOGY METHOD 03/06/2025 12:13 PM [facility] Neutrophils Relative 40.5 % LAB HEMETOLOGY METHOD 03/06/2025 12:13 PM [facility] Lymphocytes Relative 48.6 % LAB HEMETOLOGY METHOD 03/06/2025 12:13 PM [facility] Monocytes Relative 7.5 % LAB HEMETOLOGY METHOD 03/06/2025 12:13 PM [facility] Eosinophils Relative 2.7 % LAB HEMETOLOGY METHOD 03/06/2025 12:13 PM [facility] Basophils Relative 0.5 % LAB HEMETOLOGY METHOD 03/06/2025 12:13 PM [facility] Immature Granulocytes Relative 0.2 % LAB HEMETOLOGY METHOD 03/06/2025 12:13 PM [facility] Neutrophils Absolute 1.79 1.50 - 7.00 K/mcL LAB HEMETOLOGY METHOD 03/06/2025 12:13 PM [facility] Lymphocytes Absolute 2.15 1.00 - 5.00 K/mcL LAB HEMETOLOGY METHOD 03/06/2025 12:13 PM EDT [facility] Monocytes Absolute 0.33 0.20 - 1.00 K/[facility] LAB HEMETOLOGY METHOD 03/06/2025 12:13 PM EDT [facility] Eosinophils Absolute 0.12 0.00 - 0.50 K/[facility] LAB HEMETOLOGY METHOD 03/06/2025 12:13 PM EDT [facility] Basophils Absolute 0.02 0.00 - 0.20 K/[facility] LAB HEMETOLOGY METHOD 03/06/2025 12:13 PM EDT [facility] Immature Granulocytes Absolute 0.01 0.00 - 0.03 K/[facility] LAB HEMETOLOGY METHOD 03/06/2025 12:13 PM EDT [facility] Blood Venous blood specimen / Unknown Venipuncture / Unknown 03/06/2025 10:33 AM EDT 03/06/2025 10:33 AM EDT us Nena ALVES LAB BLOOD ORDERABLES Final Re sult [facility] [address] [place] [address], * Hemoglobin A1c (03/06/2025 10:33 AM EDT) Hemoglobin A1C 5.4 <6.5 % LAB CHEMISTRY METHOD 03/08/2025 2:35 PM EDT [facility] Mean Bld Glu Estim. 108 mg/dL LAB CHEMISTRY METHOD 03/08/2025 2:35 PM EDT [facility] Blood Venous blood specimen / Unknown Venipuncture / Unknown 03/06/2025 10:33 AM EDT 03/06/2025 10:33 AM EDT us Nena ALVES LAB BLOOD ORDERABLES Final Re sult [facility] [address] [place] [address], * Comprehensive metabolic panel (03/06/2025 10:33 AM EDT) Sodium 141 133 - 145 mmol/L LAB CHEMISTRY METHOD 03/06/2025 12:32 PM [facility] Potassium 3.5 3.5 - 5.5 mmol/L LAB CHEMISTRY METHOD 03/06/2025 12:32 PM [facility] Chloride 110 96 - 110 mmol/L LAB CHEMISTRY METHOD 03/06/2025 12:32 PM [facility] CO2 26 21 - 32 mmol/L LAB CHEMISTRY METHOD 03/06/2025 12:32 PM [facility] Anion Gap 5 3 - 11 LAB CHEMISTRY METHOD 03/06/2025 12:32 PM [facility] Glucose 94 70 - 100 mg/dL LAB CHEMISTRY METHOD 03/06/2025 12:32 PM [facility] BUN 16 5 - 25 mg/dL LAB CHEMISTRY METHOD 03/06/2025 12:32 PM [facility] Creatinine 0.92 0.50 - 1.10 mg/dL LAB CHEMISTRY METHOD 03/06/2025 12:32 PM [facility] eGFR 69 >=60 mL/min/1. 73m2 LAB CHEMISTRY METHOD 03/06/2025 12:32 PM [facility] Comment:Calculation based on the Chronic Kidney Disease Epidemiology Collaboration (CKD-EPI) equation refit without adjustment for race. BUN/Creatinine Ratio 17.4 LAB CHEMISTRY METHOD 03/06/2025 12:32 PM [facility] Calcium 9.3 8.5 - 10.5 mg/dL LAB CHEMISTRY METHOD 03/06/2025 12:32 PM [facility] AST (SGOT) 25 10 - 42 unit/L LAB CHEMISTRY METHOD 03/06/2025 12:32 PM EDT [facility] ALT (SGPT) 21 10 - 60 unit/L LAB CHEMISTRY METHOD 03/06/2025 12:32 PM EDT [facility] Alkaline Phosphatase 82 42 - 121 unit/L LAB CHEMISTRY METHOD 03/06/2025 12:32 PM EDT [facility] Total Protein 6.9 6.0 - 8.0 g/dL LAB CHEMISTRY METHOD 03/06/2025 12:32 PM EDT [facility] Albumin 3.3 3.2 - 5.0 g/dL LAB CHEMISTRY METHOD 03/06/2025 12:32 PM EDT [facility] Total Bilirubin 0.4 0.0 - 1.4 mg/dL LAB CHEMISTRY METHOD 03/06/2025 12:32 PM EDT [facility] Blood Venous blood specimen / Unknown Venipuncture / Unknown 03/06/2025 10:33 AM EDT 03/06/2025 10:33 AM EDT us Nena ALVES LAB BLOOD ORDERABLES Final Re sult [facility] [address] [place] [address], * BD Bone Density DXA Axial Skeleton [...] (World Health Organization Fracture Risk Assessment) [facility] Department of Internal Medicine recommends using National [...] alternative screening schedule based on halima Gonzalez., [facility] November 04, 2011 for patients with osteopenia (based on hip BMD T-score) is as follows: * advanced osteopenia (T scores [...] Signed Date: 09/18/2024 14:56 ET Workstation ID: [id number] Transcribed By: Self Edit Transcribed Date: 09/18/2024 14:55 ET Narrative 09/18/2024 2:56 PM EST BONE DENSITY (DEXA) Lumbar Spine T-score is [...] years. (World HealthOrganization Fracture Risk Assessment) [facility] Department of Internal Medicine recommendsusing National Osteoporosis [...] alternative screening schedule based on halima Gonzalez., NEJMJanuary 2011 for patients with osteopenia (based on [...] Signed Date: 09/18/2024 14:56 ET Workstation ID: [id number] Transcribed By: Self Edit Transcribed Date: 09/18/2024 14:55 ET us Joy Enriquez MD IMG DXA PROCEDURES Final [...] interpreted with the aid of computer-aided detection. Comparison is made with 03/19/2023 and as far back as 07/02/2019. Breast parenchyma is composed of scattered fibroglandular densities. No new suspicious mass, architectural distortion, or suspicious [...] evidence of malignancy. BI-RADS 1 - negative Result [facility] Anjelica ALVES IMG XR PROCEDURES Final Result * Colonoscopy (04/22/2021) Colonoscopy No Interpretation , Abstracted Anatomical Region Laterality Modality Other Historical Provider HEALTH MAINTENANCE Final Result * Hepatitis C Screening (09/29/2009) Hepatitis C Screening Abstracted Historical Provider HEALTH MAINTENANCE Final Result from Last 3 Months or Most Recently Relevant to Health Maintenance Insurance [employer] MED[employer]ARE [employer]VANTAGE Care Teams Top Distribution Executive Relationship Specialty Start Date End Date Joy Enriquez MD [address] [place] [phone] PCP - General 05/31/05
== END 2025-04-29 10:30 | disposition home or self-care (01) ==
LOC: HO.HPS 09:59
PROVIDERS: PCP Internal Medicine; Visit Provider Nurse Practitioner Family
DX: J45.909 Unspecified asthma, uncomplicated (principal); G47.33 Obstructive sleep apnea (adult) (pediatric); G47.34 Idiopathic sleep related nonobstructive alveolar hypoventilation; R40.0 Somnolence
CPT/HCPCS: 99214

== ENCOUNTER → 2025-04-29 09:59 | Outpatient (BNVA) | payer MEDICARE, SELFPAY | PROVIDERS: PCP Internal Medicine; Visit Provider Nurse Practitioner Family | DX: G47.33 Obstructive sleep apnea (adult) (pediatric) (principal); J45.909 Unspecified asthma, uncomplicated; R05.3 Chronic cough; R40.0 Somnolence; G47.34 Idiopathic sleep related nonobstructive alveolar hypoventilation | CPT/HCPCS: 99212 ==

== ENCOUNTER 2025-05-09 15:08 | Outpatient (REF) | payer MEDICARE, SELFPAY ==
--- NOTE | ~2025-05-09 | XR_ITS ---
EXAMINATION: XR CHEST CLINICAL INFORMATION: R05.3 - Chronic cough COMPARISON: March 04, 2020 TECHNIQUE: 2 views of the chest were obtained. FINDINGS: Heart size is within normal limits. There are low lung volumes however, lungs are better aerated than on the prior. The thoracic spine demonstrates degenerative disc disease with extensive osteophytes. XR/XR chest 2V IMPRESSION: No acute disease, low lung volumes. Electronically signed by: Tone Cobian MD 05/09/2025 03:29 PM EDT
--- OUTSIDE RECORDS SUMMARY | 2025-05-09 15:11 | XMS_ITS | Clinical Summary ---
Author Organization [facility] Address [address] [place] [address] Care Team Providers Care Second Butler Name Role Phone Joy Enriquez MD Primary Care Provider [phone] Allergies No known active allergies Medications Medication [...] age to complete this topic Care Teams Second Butler Relationship Specialty Start Date End Date Joy Enriquez MD PCP - General Internal Medicine 02/27/19
--- OUTSIDE RECORDS SUMMARY | 2025-05-09 15:11 | XMS_ITS | Clinical Summary ---
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 08/19/20 21 Active acetaminophen (TYLENOL) 500 mg tablet Take 2 tablets (1,000 mg total) by mouth every 8 (eight) hours. 30 tablet 11/14/19 25 Active simvastatin (ZOCOR) 40 mg tablet TAKE 1 TABLET BY MOUTH EVERYDAY AT BEDTIME 90 tablet 1 02/05/20 25 Active hydroCHLOROthi azide (HYDRODIURIL) 25 mg tablet Take 1 tablet (25 mg total) by mouth 1 (one) time each day. 90 tablet 03/18/20 25 Active lisinopril (PRINIVIL,ZEST RIL) 40 mg tablet TAKE 1 TABLET BY MOUTH EVERYDAY AT BEDTIME 90 tablet 1 05/02/20 25 Active lisinopril (PRINIVIL,ZEST RIL) 40 mg tablet Take 1 tablet (40 mg total) by mouth at bedtime. 90 tablet 12/25/19 25 025 Discontinued Active Problems Problem Noted Date Diagnosed Date Abnormal ankle brachial index 08/27/2024 Overview (08/27/2024): Volume plethysmography to screen for PAD. Overall normal. Left side 1.09, normal. Right side 0.95, borderline. CKD (chronic kidney disease) stage 3, GFR 30-59 ml/min ([facility] V24, [facility] V28) 03/03/2023 Anxiety 09/01/2020 COVID-19 virus infection 04/16/2020 Ventral hernia 12/24/2019 Overview (08/27/2024): Repaired 08/05 - incarcerated, adhesion lysis, mesh placed Arthritis of knee, left 03/27/2019 Asthma 03/23/2017 Prediabetes 03/23/2017 Premature atrial complexes 03/23/2017 TUAN (obstructive sleep apnea) 03/31/2016 Overview (08/27/2024): [facility] Home Polysomnogram: Date 06/24/2017; AHI 18, Unclassified apneas 0; Obstructive apneas 8; Central apneas 6; Mixed apneas 0; hypopneas 83; average oxygen saturation 95% (lowest 84% without saturations <88% for 5% or more of study) Arthritis, degenerative 03/31/2015 Onychomycosis 08/02/2013 Cervical herniated disc 11/17/2010 Degenerative disc disease, lumbar 11/17/2010 Morbid obesity with BMI of 4 5.0-49.9, adult ([facility] V24, [facility] V28) 05/14/2009 Hypercholesterolemia 08/04/2007 Asymptomatic varicose veins 07/30/2007 Esophageal reflux 07/30/2007 Hypertension 02/23/2006 Immunizations Name Administration Dates Next Due Hepatitis B (Iftiooj-M-Rnvvn , Recombivax HB-Adult) 19yo and older 07/02/2005,06/02/2005 [...] Surgery Date Site/Laterality Comments HERNIA REPAIR PROCEDURE: MN REPAIR FIRST ABDOMINAL WALL HERNIA TUBAL LIGATION PROCEDURE: HISTORICAL TUBAL LIGATION CHOLECYSTECTOMY PROCEDURE: HISTORICAL CHOLECYSTECTOMY COLONOSCOPY 01/04/2011 PROCEDURE: MN COLONOSCOPY FLX DX W/COLLJ SPEC WHEN PFRMD; [...] 10:00 AM EDT Appointment Radiology Department - [address] [phone] 06/28/2025 9:45 AM EDT Office Visit Adult Medicine [address] [phone] Joy Enriquez MD [address] [place] [id number] Health Maintenance Due Date Last Done Comments COVID-19 Vaccine (#1) 1964 Zoster Vaccines (1 of 2) 1978 Hepatitis B Vaccines (3 of 3 - 19+ 3-dose series) 12/03/2005 07/02/2005, 06/02/2005 RSV Immunization Adult Patients (1 - Risk 60-74 years 1-dose series) 2019 Medicare Annual Wellness Visit 09/25/2022 Social Influencers of Health Screening 09/25/2022 Falls Risk Assessment 2024 Depression Screening 10/17/2024 Influenza Vaccine (#1) 2025 , 11/17/2023, 09/02/2022, Additional history exists Hypertension/CHF/CAD Annual BMP Blood Test 03/06/2026 03/06/2025, 11/13/2024, 11/17/2023 Breast Cancer Screening 05/04/2026 05/04/20, [...] with BMI of 45.0-49.9, adult ([facility]/HCC V24, [facility] V28) LIPID PANEL WITH REFLEX TO DIRECT LDL Routine 03/06/2025 10:33 AM EDT Mild intermittent asthma, unspecified whether complicated Primary hypertension Hypercholesterolemia TUAN (obstructive sleep apnea) Prediabetes Morbid obesity with BMI of 45.0-49.9, adult ([facility] V24, [facility] V28) COMPREHENSIVE METABOLIC PANEL Routine 03/06/2025 10:33 AM EDT Mild intermittent asthma, unspecified whether complicated Primary hypertension Hypercholesterolemia TUAN (obstructive sleep apnea) Prediabetes Morbid obesity with BMI of 45.0-49.9, adult ([facility] V24, [facility] V28) CBC AND DIFFERENTIAL Routine 03/06/2025 10:33 AM EDT Mild intermittent asthma, unspecified whether complicated Primary hypertension Hypercholesterolemia TUAN (obstructive sleep apnea) Prediabetes Morbid obesity with BMI of 45.0-49.9, adult ([facility] V24, [facility] V28) HEMOGLOBIN A1C Routine 03/06/2025 10:33 AM [...] LAB CHEMISTRY METHOD 03/06/2025 12:32 PM EDT [facility] Triglycerides 76 0 - 150 mg/dL LAB CHEMISTRY METHOD 03/06/2025 12:32 PM EDT [facility] HDL 60 >=40 mg/dL LAB CHEMISTRY METHOD 03/06/2025 12:32 PM EDT [facility] LDL Calculated 88 0 - 100 mg/dL LAB CHEMISTRY METHOD 03/06/2025 12:32 PM EDT [facility] VLDL Cholesterol Kj 15.2 mg/dL LAB CHEMISTRY METHOD 03/06/2025 12:32 PM EDT [facility] Non HDL Chol. (LDL+VLDL) 103 <145 mg/dL LAB CHEMISTRY METHOD 03/06/2025 12:32 PM EDT [facility] Chol/HDL Ratio 2.7 0.0 - 4.4 LAB CHEMISTRY METHOD 03/06/2025 12:32 PM EDT [facility] Blood Venous blood specimen / Unknown Venipuncture / Unknown 03/06/2025 10:33 AM EDT 03/06/2025 10:33 AM EDT us Nena ALVES LAB BLOOD ORDERABLES Final Re sult [facility] [address] [place] [address], [place] [phone] * (ABNORMAL) CBC auto differential (03/06/2025 10:33 AM EDT) WBC 4.4(L) 4.8 - 10.8 K/mcL LAB HEMETOLOGY METHOD 03/06/2025 12:13 PM [facility] RBC 4.60 3.80 - 4.80 M/mcL LAB HEMETOLOGY METHOD 03/06/2025 12:13 PM [facility] Hemoglobin 13.8 11.5 - 16.0 g/dL LAB HEMETOLOGY METHOD 03/06/2025 12:13 PM [facility] Hematocrit 41.7 35.0 - 47.0 % LAB HEMETOLOGY METHOD 03/06/2025 12:13 PM [facility] MCV 90.8 79.0 - 98.0 FL LAB HEMETOLOGY METHOD 03/06/2025 12:13 PM [facility] MCH 30.1 27.0 - 32.0 pcg LAB HEMETOLOGY METHOD 03/06/2025 12:13 PM [facility] MCHC 33.1 32.0 - 37.0 g/dL LAB HEMETOLOGY METHOD 03/06/2025 12:13 PM [facility] RDW 13.0 11.0 - 15.0 % LAB HEMETOLOGY METHOD 03/06/2025 12:13 PM [facility] Platelets 177 130 - 400 K/mcL LAB HEMETOLOGY METHOD 03/06/2025 12:13 PM [facility] MPV 11.6(H) 7.0 - 11.0 FL LAB HEMETOLOGY METHOD 03/06/2025 12:13 PM [facility] NRBC 0.0 <1.0 % LAB HEMETOLOGY METHOD 03/06/2025 12:13 PM [facility] NRBC Absolute 0.00 <0.10 K/mcL LAB HEMETOLOGY METHOD 03/06/2025 12:13 PM [facility] Neutrophils Relative 40.5 % LAB HEMETOLOGY METHOD 03/06/2025 12:13 PM [facility] Lymphocytes Relative 48.6 % LAB HEMETOLOGY METHOD 03/06/2025 12:13 PM [facility] Monocytes Relative 7.5 % LAB HEMETOLOGY METHOD 03/06/2025 12:13 PM [facility] Eosinophils Relative 2.7 % LAB HEMETOLOGY METHOD 03/06/2025 12:13 PM [facility] Basophils Relative 0.5 % LAB HEMETOLOGY METHOD 03/06/2025 12:13 PM [facility] Immature Granulocytes Relative 0.2 % LAB HEMETOLOGY METHOD 03/06/2025 12:13 PM [facility] Neutrophils Absolute 1.79 1.50 - 7.00 K/[facility] LAB HEMETOLOGY METHOD 03/06/2025 12:13 PM EDT [facility] Lymphocytes Absolute 2.15 1.00 - 5.00 K/[facility] LAB HEMETOLOGY METHOD 03/06/2025 12:13 PM EDT [facility] Monocytes Absolute 0.33 0.20 - 1.00 K/[facility] LAB HEMETOLOGY METHOD 03/06/2025 12:13 PM EDT [facility] Eosinophils Absolute 0.12 0.00 - 0.50 K/[facility] LAB HEMETOLOGY METHOD 03/06/2025 12:13 PM EDT [facility] Basophils Absolute 0.02 0.00 - 0.20 K/[facility] LAB HEMETOLOGY METHOD 03/06/2025 12:13 PM EDT [facility] Immature Granulocytes Absolute 0.01 0.00 - 0.03 K/[facility] LAB HEMETOLOGY METHOD 03/06/2025 12:13 PM EDT [facility] Blood Venous blood specimen / Unknown Venipuncture / Unknown 03/06/2025 10:33 AM EDT 03/06/2025 10:33 AM EDT us Nena ALVES LAB BLOOD ORDERABLES Final Re sult [facility] [address] [place] [address], * Hemoglobin A1c (03/06/2025 10:33 AM EDT) Hemoglobin A1C 5.4 <6.5 % LAB CHEMISTRY METHOD 03/08/2025 2:35 PM EDT [facility] Mean Bld Glu Estim. 108 mg/dL LAB CHEMISTRY METHOD 03/08/2025 2:35 PM EDT [facility] Blood Venous blood specimen / Unknown Venipuncture / Unknown 03/06/2025 10:33 AM EDT 03/06/2025 10:33 AM EDT us Nena ALVES LAB BLOOD ORDERABLES Final Re sult [facility] [address] [place] [address], [place] [phone] * Comprehensive metabolic panel (03/06/2025 10:33 AM EDT) Pathologist [facility] Sodium 141 133 - 145 mmol/L LAB CHEMISTRY METHOD 03/06/2025 12:32 PM [facility] Potassium 3.5 3.5 - 5.5 mmol/L LAB CHEMISTRY METHOD 03/06/2025 12:32 PM [facility] Chloride 110 96 - 110 mmol/L LAB CHEMISTRY METHOD 03/06/2025 12:32 PM [facility] CO2 26 21 - 32 mmol/L LAB CHEMISTRY METHOD 03/06/2025 12:32 PM [facility] Anion Gap 5 3 - 11 LAB CHEMISTRY METHOD 03/06/2025 12:32 PM [facility] Glucose 94 70 - 100 mg/dL LAB CHEMISTRY METHOD 03/06/2025 12:32 PM [facility] BUN 16 5 - 25 mg/dL LAB CHEMISTRY METHOD 03/06/2025 12:32 PM [facility] Creatinine 0.92 0.50 - 1.10 mg/dL LAB CHEMISTRY METHOD 03/06/2025 12:32 PM [facility] eGFR 69 >=60 mL/min/1. 73m2 LAB CHEMISTRY METHOD 03/06/2025 12:32 PM [facility] Comment:Calculation based on the Chronic Kidney Disease Epidemiology Collaboration (CKD-EPI) equation refit without adjustment for race. BUN/Creatinine Ratio 17.4 LAB CHEMISTRY METHOD 03/06/2025 12:32 PM [facility] Calcium 9.3 8.5 - 10.5 mg/dL LAB CHEMISTRY METHOD 03/06/2025 12:32 PM EDT [facility] AST (SGOT) 25 10 - 42 unit/L LAB CHEMISTRY METHOD 03/06/2025 12:32 PM T [facility] ALT (SGPT) 21 10 - 60 unit/L LAB CHEMISTRY METHOD 03/06/2025 12:32 PM EDT [facility] Alkaline Phosphatase 82 42 - 121 unit/L LAB CHEMISTRY METHOD 03/06/2025 12:32 PM EDT [facility] Total Protein 6.9 6.0 - 8.0 g/dL LAB CHEMISTRY METHOD 03/06/2025 12:32 PM [facility] Albumin 3.3 3.2 - 5.0 g/dL LAB CHEMISTRY METHOD 03/06/2025 12:32 PM [facility] Total Bilirubin 0.4 0.0 - 1.4 mg/dL LAB CHEMISTRY METHOD 03/06/2025 12:32 PM EDT [facility] Blood Venous blood specimen / Unknown Venipuncture / Unknown 03/06/2025 10:33 AM EDT 03/06/2025 10:33 AM EDT us Nena ALVES LAB BLOOD ORDERABLES Final Re sult [facility] [address] [place] [address], * BD Bone Density DXA Axial Skeleton [...] (World Health Organization Fracture Risk Assessment) [facility] Department of Internal Medicine recommends [...] alternative screening schedule based on halima Gonzalez., [facility] November 04, 2011 for patients with osteopenia [...] Signed Date: 09/18/2024 14:56 ET Workstation ID: [id number] Transcribed By: Self Edit Transcribed Date: 09/18/2024 [...] years. (World HealthOrganization Fracture Risk Assessment) [facility] Department of Internal Medicine recommendsusing [...] alternative screening schedule based on halima Gonzalez., [facility] for patients with [facility]openia (based on [...] Signed Date: 09/18/2024 14:56 ET Workstation ID: [id number] Transcribed By: Self Edit Transcribed Date: 09/18/2024 [...] Anatomical Region Laterality Modality Other Historical Provider MD HEALTH MAINTENANCE Final Result * Hepatitis C Screening (09/29/2009) Hepatitis C Screening Abstracted Historical Provider HEALTH MAINTENANCE Final Result from Last 3 Months or Most Recently Relevant to Health Maintenance Insurance [employer] Care Teams 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
== END 2025-05-09 15:09 | disposition home or self-care (01) ==
LOC: HO.XRAY 15:08
PROVIDERS: Visit Provider Nurse Practitioner Family
DX: R05.3 Chronic cough (principal)
CPT/HCPCS: 71046

== ENCOUNTER → 2025-05-09 15:13 | Outpatient (BNV) | payer MEDICARE, SELFPAY | PROVIDERS: Visit Provider Radiology Diagnostic Radiology | DX: R05.9 Cough, unspecified (principal) | CPT/HCPCS: 71046 ==

== ENCOUNTER 2025-05-23 09:59 | Outpatient (REF) | payer MEDICARE, SELFPAY ==
--- NOTE | 2025-05-23 10:09 | PFT_ITS ---
Flows: FEV1: 79 % of predicted at 1.53 L FVC: 76 % of predicted at 1.86 L FEV1/FVC: 83 % Bronchodilator response: Absent Volumes: Total lung capacity: 61 % of predicted at 2.94 L Residual volume: 60 % of predicted at 1.08 L Slow vital capacity: 61 % of predicted at 1.86 L Expiratory reserve volume: 18 % of predicted at 0.13 L Diffusion capacity: Mildly decreased, corrects to normal after adjustment for alveolar ventilation. Impression: Moderate restrictive ventilatory defect with no bronchodilator response. Decreased expiratory reserve volume suggests extrathoracic restriction likely secondary to abdominal obesity. Combination of decreased diffusion capacity with restrictive ventilatory defect suggests underlying pulmonary parenchymal disease. Clinical correlation is advised. MTDD
[2025-05-23 10:51] VITALS: PULSE 85; O2SAT 97
== END 2025-05-23 10:00 | disposition home or self-care (01) ==
LOC: HO.RESP 09:59
PROVIDERS: PCP Internal Medicine; Visit Provider Nurse Practitioner Family
DX: J45.909 Unspecified asthma, uncomplicated (principal)
CPT/HCPCS: 94010; 94640; 94727; 94729

== ENCOUNTER → 2025-05-23 10:09 | Outpatient (BNV) | payer MEDICARE, SELFPAY | PROVIDERS: PCP Internal Medicine; Visit Provider Internal Medicine Pulmonary Disease | DX: J45.909 Unspecified asthma, uncomplicated (principal) | CPT/HCPCS: 94060; 94727; 94729 ==

== ENCOUNTER 2025-07-01 10:45 | Outpatient (AMB) | payer MEDICARE, SELFPAY ==
--- NOTE | 2025-07-01 10:47 | A.OFFVIS_ITS ---
Vital Signs 07/01/25 10:52 Height 5 ft 3 in Weight 278 lb 14.156 oz BMI 49.4 BP 148/76 H Blood Pressure Location Rt brachial Position Sitting Pulse 99 Pulse Source Pulse Oximeter Pulse Oximetry (%) 96 Oxygen Delivery Method Room Air Intake Visit Reasons: Obstructive sleep apnea Allergies No Known Allergies (No Known Allergies*) Allergy (Verified 07/01/25 10:57) HPI HPI Obstructive sleep apnea: Details: Mere is a pleasant 65-year-old female, never smoker, with underlying asthma, hypertension, TUAN on CPAP, GERD and chronic kidney disease stage III. Since the last visit, Advair was increased to 230 mcg unfortunately she was unable to obtain stating not financially feasible. She continues to report dry cough, intermittent wheezing and dyspnea with moderate exertion. Prior home sleep study 03/2025 confirmed mild sleep apnea with an apnea-hypopnea index of 12.8 and oxygen desaturation below 88% for 40 minutes, lowest 74% average 90%. At the last visit she was started on CPAP in APAP mode with pressures 6-20 cmH20. DME is [employer]. She does note significant issues with proper mask fit resulting in leakage. Today she presents to review compliance report, CXR/PFT results. [facility] Social History Patient Tobacco Use Status: Never used Tobacco Review of Systems Const Denies chills, Denies excessive sweating, Denies fever(s), Denies headache(s) and Denies night sweats Eyes Denies dry eyes, Denies irritation and Denies itchy eyes ENT Reports Normal hearing present, Denies headache(s), Denies nasal congestion, Denies nasal discharge, Denies post nasal drip and Denies sore throat Card Denies chest pain, Denies chest pain at rest, Denies chest pain with activity, Denies claudication, Denies leg edema, Denies dyspnea, Reports dyspnea on exertion, Denies orthopnea and Denies paroxysmal nocturnal dyspnea Resp Denies chest congestion, Reports cough, Denies excessive phlegm production, Denies pain on inspiration, Denies pain with cough, Denies dyspnea, Reports dy spnea on exertion, Denies stridor and Reports wheezing Musc Denies myalgias Neuro Reports Normal hearing present and Denies headache(s) Endo Denies excessive sweating Regis/Lymph Denies lymphadenopathy Aller/Immun Denies itchy eyes, Denies seasonal rhinorrhea and Reports wheezing Physical Exam Vital Signs: Last Vital Signs Pulse 99 07/01/25 10:52 BP 148/76 H 07/01/25 10:52 Pulse Ox 96 07/01/25 10:52 Oxygen Delivery Method Room Air 07/01/25 10:52 BMI result Body Mass Index 49.4 Const General: cooperative, healthy appearing, comfortable, no acute distress, well developed and alert Nutritional Appearance: obese Orientation/consciousness: patient oriented x3 Limitations: no limitations HEENT Head: Yes normal to inspection, Yes normocephalic and Yes atraumatic Ears: hearing grossly normal bilaterally and external ears normal Eyes General: appearance normal, both eyes and all related structures Eyelids: Yes eyelids normal Sclerae: sclerae normal EOM: EOMs intact bilaterally Neck Neck: Yes normal visual inspection and Yes no lymphadenopathy Lymphatic: no lymphadenopathy noted Chest Chest palpation & inspection: normal inspection of the chest Resp Effort & Inspection: normal respiratory effort, able to speak in complete sentences, no audible wheezes, no cough, no stridor, not tachypneic, no tripod positioning and no use of accessory muscles Auscultation: diminished lung sounds Cardio Jugular venous distension: no JVD Rate: regular rate Rhythm: regular rhythm Skin Other: warm, dry General skin exam: no rashes or lesions noted Neuro General: patient oriented x3 Cranial nerves: Yes Normal hearing present Cognition (Neuro): normal cognition Gait exam (Neuro): Normal gait present Extrem General: Yes normal to inspection, Yes capillary refill normal, Yes no clubbing, cyanosis or edema and Yes no pedal edema Psych Appearance: grossly normal and well kempt Speech and movement: Normal speech and movement present and Clear speech present Affect: normal affect Attitude: cooperative Thought process: Normal thought process present Thought content: Normal thought content present Insight: Good insight present (Psych) Judgement: Good judgement present (Psych) Results Reviewed Results Reviewed: [address] [address] JANay Report Signed Patient: Mere Abreu MR#: [id number] : 1960 Acct:[id number] Age/Sex: 65 / F ADM Date: 05/09/25 Loc: [facility] Attending Dr: Sallie Stucenski KENO CLERK Ordering Physician: Sallie Lujan NP Date of Service: 05/09/25 Procedure(s): XR chest 2V Accession Number(s): [id number] cc: Sallie Lujan NP~ EXAMINATION: XR CHEST CLINICAL INFORMATION: R05.3 - Chronic cough COMPARISON: March 04, 2020 TECHNIQUE: 2 views of the chest were obtained. FINDINGS: Heart size is within normal limits. There are low lung volumes however, lungs are better aerated than on the prior. The thoracic spine demonstrates degenerative disc disease with extensive osteophytes. XR/XR chest 2V IMPRESSION: No acute disease, low lung volumes. Electronically signed by: Tone Cobian MD 05/09/2025 03:29 PM EDT RP Dictated By: Tone Cobian MD Signed By: <Electronically signed by Tone Cobian MD in OV> 05/09/25 1529 DD/ 1514 TD/TT: 05/09/25 1520 College Tutor: Assessment & Plan Assessment & Plan (1) Asthma: Code(s): J45.909 - Unspecified asthma, uncomplicated Category: Medical (2) Obstructive sleep apnea: Code(s): G47.33 - Obstructive sleep apnea (adult) (pediatric) Category: Medical (3) Nocturnal hypoxemia: Code(s): G47.34 - Idiopathic sleep related nonobstructive alveolar hypoventilation Category: Medical Plan At this time Mere continues with suboptimal effect with Advair 115mcg, will switch to Symbicort, she is aware to call if unable to obtain inhaler. Reviewed PFT which revealed moderate restrictive ventilatory defect with no bronchodilator response. Decreased expiratory reserve volume suggests extrathoracic restriction likely secondary to abdominal obesity. Combination of decreased diffusion capacity with restrictive ventilatory defect suggests underlying pulmonary parenchymal disease. Importance of weight loss reviewed. CXR unremarkable, discussed need for chest CT to further evaluate decreased diffusion capacity. Will enter. Reviewed compliance report over the last 30 days which revealed 98% compliance <4 hours per night, average AHI with moderate leaking noted. She endorses issues with proper mask fit despite switching sizes, encouraged patient to reach out to [facility] to trial different mask types which she was agreeable. Will send for overnight oximetry to ensure resolution of nocturnal hypoxemia with CPAP use. All questions were answered and patient is in agreement of plan. Will follow up in 8-10 weeks or sooner if needed. Orders: Orders Overnight Pulse Oximetry Today G47.34 - Idiopathic sleep related nonobstructive alveolar hypoventilation CT chest wo IV con Today R94.2 - Abnormal results of pulmonary function studies Medications: New budesonide-formoterol 160-4.5 mcg/actuation (Symbicort) 2 puffs inhalation Q12H 10.2 grams 3RF Coding Level of Care Code Est Pt Level 4 (28757) Diagnoses Asthma J45.909 Obstructive sleep apnea G47.33 Nocturnal hypoxemia G47.34
[2025-07-01 10:52] VITALS: BP 148/76; PULSE 99; O2SAT 96; BMI 49.4
--- OUTSIDE RECORDS SUMMARY | 2025-07-01 14:01 | XMS_ITS | Clinical Summary ---
Author Organization [facility] [address] [facility] Address [address] [place] [address] Phone Care Team Providers Care Digital Pre Press Operator Name Role Phone Joy Enriquez MD Primary Care Provider [phone] Allergies No known active allergies Medications albuterol [...] BEDTIME 90 tablet 1 02/05/20 25 Active lisinopril (PRINIVIL,ZEST RIL) 40 mg tablet TAKE 1 TABLET BY MOUTH EVERYDAY AT BEDTIME 90 tablet 1 05/02/20 25 Active hydroCHLOROthi azide (HYDRODIURIL) 25 mg tablet Take 1 tablet (25 mg total) by mouth 1 (one) time each day. 90 tablet 06/20/20 25 Active hydroCHLOROthi azide (HYDRODIURIL) 25 mg tablet Take 1 tablet (25 mg total) by mouth 1 (one) time each day. 90 tablet 03/18/20 25 025 Discontinued Active Problems Problem Noted Date Diagnosed Date Abnormal ankle brachial index 08/27/2024 Overview (08/27/2024): Volume plethysmography to screen for PAD. Overall normal. Left side 1.09, normal. Right side 0.95, borderline. CKD (chronic kidney disease) stage 3, GFR 30-59 ml/min ([facility] [place] [facility] V28) 03/03/2023 Anxiety 09/01/2020 COVID-19 virus infection 04/16/2020 Ventral hernia 12/24/2019 Overview (08/27/2024): Repaired 08/05 - incarcerated, adhesion lysis, mesh placed Arthritis of knee, left 03/27/2019 Asthma 03/23/2017 Prediabetes 03/23/2017 Premature atrial complexes 03/23/2017 TUAN (obstructive sleep apnea) 03/31/2016 Overview (08/27/2024): [facility] Home Polysomnogram: Date 06/24/2017; AHI 18, Unclassified apneas 0; Obstructive apneas 8; Central apneas 6; Mixed apneas 0; hypopneas 83; average oxygen saturation 95% (lowest 84% without saturations <88% for 5% or more of study) Arthritis, degenerative 03/31/2015 Onychomycosis 08/02/2013 Cervical herniated disc 11/17/2010 Degenerative disc disease, lumbar 11/17/2010 Morbid obesity with BMI of 4 5.0-49.9, adult ([facility] [place], [facility]) 05/14/2009 Hypercholesterolemia 08/04/2007 Asymptomatic varicose veins 07/30/2007 Esophageal reflux 07/30/2007 Hypertension 02/23/2006 Encounters Date Type Department Care Team Description 05/17/2025 1:18 PM EDT - 05/17/2025 11:59 PM EDT Hospital Encounter Radiology Department [address] [id number] Encounter for screening mammogram for breast cancer Discharge Disposition: Home or Self Care from Last 3 Months Immunizations Name Administration Dates Next Due Hepatitis B (Jerdkip-V-Zoyqc , Recombivax HB-Adult) 19yo and older 07/02/2005,06/02/2005 [...] History Surgery Date Site/Laterality Comments HERNIA REPAIR REPAIR FIRST ABDOMINAL WALL HERNIA TUBAL LIGATION CHOLECYSTECTOMY COLONOSCOPY 01/04/2011 Normal KNEE SURGERY meniscus repair Medical History Medical History Date Comments Esophageal reflux 07/30/2007 Asymptomatic varicose veins 07/30/2007 Pure hypercholesterolemia 08/04/2007 Onychomycosis 08/02/2013 Morbid obesity ([facility] V24, [facility] V28) 009 TUAN (obstructive sleep apnea) 03/31/2016 COVID-19 virus infection 04/16/2020 Anxiety 09/01/2020 Asthma 03/23/2017 CKD (chronic kidney disease) stage 3, GFR 30-59 ml/min ([facility] V24, [facility] V28) 03/03/2023 Hypertension 02/23/2006 Prediabetes 03/23/2017 Ventral hernia 12/24/2019 Repaired 08/05 - incarcerated, adhesion lysis, mesh placed Family History Medical History Relation Name Comments [...] = 0.6 oz pur e alcohol) Comments No Sex and Gender Information Value Date Recorded Sex Assigned at Female 11/13/2024 10:55 PM EST Legal Sex Female 10:35 AM EST Gender Identity Female 11/13/2024 10:55 PM EST Sexual Orientation Straight 11/13/2024 10 :55 PM EST Obstetrics History Para Term AB IAB SAB Ectopic Multiple Livin g Live Births 8 8 8 8 Date Outcome GA Total Labor Labor/2nd/3rd Weight Sex Type Anes PTL Kristina A1 A5 Name Clin Term Term Term Term Term Term Term Term Last Filed Vital Signs Vital Sign Reading [...] 12/24/2024 1:24 PM EDT Plan of Treatment Health Maintenance Due [...] 03/06/2026 03/06/2025, 11/13/2024, 11/17/2023 Breast Cancer Screening 05/17/2027 05/17/20, 05/04/2024, 05/04/2024, Additional history exists Cholesterol Screening (Lipid Panel) [...] Procedure Name Priority Date/Time Associated Diagnosis Comments MG MAMMO DIGITAL SCREENING W MARTHA BILAT Routine 05/17/2025 1:36 PM EDT Encounter for screening mammogram for breast cancer COMPREHENSIVE METABOLIC PANEL Routine 03/06/2025 10:33 AM [...] Morbid obesity with BMI of 45.0-49.9, adult ([facility] V24, [facility] V28) BD BONE DENSITY DXA AXIAL SKELETON Routine 09/18/2024 2:24 PM EST Asymptomatic menopausal state HM COLONOSCOPY Routine 04/22/2021 HEPATITIS C SCREENING Routine 09/29/2009 from Last 3 Months or Most Recently Relevant to Health Maintenance Results * MG Mammo Digital Screening w Martha bilat (05/17/2025 1:36 PM EDT) Anatomical Region Laterality Modality Breast Bilateral Mammography 05/20/2025 5:51 PM EDT Impressions 05/20/2025 5:51 PM EDT No mammographic evidence of malignancy. BREAST DENSITY: B - There are scattered areas of fibroglandular density. BI-RADS CATEGORY: 1 - NEGATIVE RECOMMENDATION: Screening bilateral mammogram is recommended in 1 year. MAMMO LOCATION: [facility], [address] [place] [address], [id number], . -------- FINAL REPORT -------- Dictated By: Angely Coburn Dictated Date: 05/20/2025 17:51 ET Assigned Physician: Angely Coburn Reviewed and Electronically Signed By: Angely Coburn Signed Date: 05/20/2025 17:51 ET Workstation ID: [id number] Transcribed By: Self Edit Transcribed Date: 05/20/2025 17:51 ET Narrative 05/20/2025 5:51 PM EDT EXAM: Screening Mammogram CLINICAL: 65 years old, Female, routine annual exam. COMPARISON: 05/04/2024 and as far back as 07/08/2020 TECHNIQUE: Bilateral MLO and CC views were obtained digitally with 3-D mammogram (digital breast tomosynthesis). Computer-aided detection was utilized in evaluation of this exam (CAD). Limitations in patient positioning due to body habitus. Images obtained are the best possible. FINDINGS: No new suspicious mass, architectural distortion, or suspicious calcifications. Procedure Note Angely Coburn MD - 05/20/2025 EXAM: Screening Mammogram CLINICAL: 65 years old, Female, routine annual exam. COMPARISON: 05/04/2024 and as far back as 07/08/2020 TECHNIQUE: Bilateral MLO and CC views were obtained digitally with 3-Dmammogram (digital breast tomosynthesis). Computer-aided detection wasutilized in evaluation of this exam (CAD). Limitations in patientpositioning due to body habitus. Images obtained are the best possible. FINDINGS: No new suspicious mass, architectural distortion, or suspiciouscalcifications. IMPRESSION: No mammographic evidence of malignancy. BREAST DENSITY: B - There are scattered areas of fibroglandular density. BI-RADS CATEGORY: 1 - NEGATIVE RECOMMENDATION: Screening bilateral mammogram is recommended in 1 year. MAMMO LOCATION: [facility], [address] [place] [address], [id number], . -------- FINAL REPORT -------- Dictated By: Angely Coburn Dictated Date: 05/20/2025 17:51 ET Assigned Physician: Angely Coburn Reviewed and Electronically Signed By: Angely Coburn Signed Date: 05/20/2025 17:51 ET Workstation ID: [id number] Transcribed By: Self Edit Transcribed Date: 05/20/2025 17:51 ET Joy Enriquez MD IMG BI PROCEDURES Final Result * Lipid panel with reflex to direct LDL (03/06/2025 10:33 AM EDT) Cholesterol 163 0 - 200 mg/dL LAB CHEMISTRY METHOD 03/06/2025 12:32 PM EDT [facility] Triglycerides 76 0 - 150 mg/dL LAB CHEMISTRY METHOD 03/06/2025 12:32 PM EDT [facility] HDL 60 >=40 mg/dL LAB CHEMISTRY METHOD 03/06/2025 12:32 PM EDT [facility] LDL Calculated 88 0 - 100 mg/dL LAB CHEMISTRY METHOD 03/06/2025 12:32 PM EDT [facility] VLDL Cholesterol Kj 15.2 mg/dL LAB CHEMISTRY METHOD 03/06/2025 12:32 PM EDT [facility] Non HDL Chol. (LDL+VLDL) 103 <145 mg/dL LAB CHEMISTRY METHOD 03/06/2025 12:32 PM T [facility] Chol/HDL Ratio 2.7 0.0 - 4.4 LAB CHEMISTRY METHOD 03/06/2025 12:32 PM EDT [facility] Blood Venous blood specimen / Unknown Venipuncture / Unknown 03/06/2025 10:33 AM EDT 03/06/2025 10:33 AM EDT us Nena ALVES LAB BLOOD ORDERABLES Final Re sult [facility] [address] [place] [address], * Comprehensive metabolic panel (03/06/2025 10:33 AM EDT) Sodium 141 133 - 145 mmol/L LAB CHEMISTRY METHOD 03/06/2025 12:32 PM [facility] Potassium 3.5 3.5 - 5.5 mmol/L LAB CHEMISTRY METHOD 03/06/2025 12:32 PM [facility] Chloride 110 96 - 110 mmol/L LAB CHEMISTRY METHOD 03/06/2025 12:32 PM [facility] CO2 26 21 - 32 mmol/L LAB CHEMISTRY METHOD 03/06/2025 12:32 PM [facility] Anion Gap 5 3 - 11 LAB CHEMISTRY METHOD 03/06/2025 12:32 PM [facility] Glucose 94 70 - 100 mg/dL LAB CHEMISTRY METHOD 03/06/2025 12:32 PM [facility] BUN 16 5 - 25 mg/dL LAB CHEMISTRY METHOD 03/06/2025 12:32 PM [facility] Creatinine 0.92 0.50 - 1.10 mg/dL LAB CHEMISTRY METHOD 03/06/2025 12:32 PM [facility] eGFR 69 >=60 mL/min/1. 73m2 LAB CHEMISTRY METHOD 03/06/2025 12:32 PM [facility] Comment:Calculation based on the Chronic Kidney Disease Epidemiology Collaboration (CKD-EPI) equation refit without adjustment for race. BUN/Creatinine Ratio 17.4 LAB CHEMISTRY METHOD 03/06/2025 12:32 PM [facility] Calcium 9.3 8.5 - 10.5 mg/dL LAB CHEMISTRY METHOD 03/06/2025 12:32 PM [facility] AST (SGOT) 25 10 - 42 unit/L LAB CHEMISTRY METHOD 03/06/2025 12:32 PM [facility] ALT (SGPT) 21 10 - 60 unit/L LAB CHEMISTRY METHOD 03/06/2025 12:32 PM [facility] Alkaline Phosphatase 82 42 - 121 unit/L LAB CHEMISTRY METHOD 03/06/2025 12:32 PM [facility] Total Protein 6.9 6.0 - 8.0 g/dL LAB CHEMISTRY METHOD 03/06/2025 12:32 PM [facility] Albumin 3.3 3.2 - 5.0 g/dL LAB CHEMISTRY METHOD 03/06/2025 12:32 PM [facility] Total Bilirubin 0.4 0.0 - 1.4 mg/dL LAB CHEMISTRY METHOD 03/06/2025 12:32 PM [facility] Blood Venous blood specimen / Unknown Venipuncture / Unknown 03/06/2025 10:33 AM EDT 03/06/2025 10:33 AM EDT Nena ALVES LAB BLOOD ORDERABLES Final Re sult [facility] [address] [place] [address], * BD Bone Density DXA Axial Skeleton [...] (World Health Organization Fracture Risk Assessment) [facility] Department of Internal Medicine recommends using [...] alternative screening schedule based on halima Gonzalez., [facility] November 04, 2011 for patients [...] Signed Date: 09/18/2024 14:56 ET Workstation ID: [id number] Transcribed By: Self Edit Transcribed Date: 09/18/2024 [...] years. (World HealthOrganization Fracture Risk Assessment) [facility] Department of Internal Medicine recommendsusing National Osteoporosis [...] alternative screening schedule based on halima Gonzalez., [facility] for patients with osteopenia (based on [...] Signed Date: 09/18/2024 14:56 ET Workstation ID: [id number] Transcribed By: Self Edit Transcribed Date: 09/18/2024 14:55 ET Joy Enriquez MD IM DXA PROCEDURES Final Result * Colonoscopy (04/22/2021) [facility] Colonoscopy No Interpretation , Abstracted Anatomical Region Laterality Modality Other Historical Provider HEALTH MAINTENANCE Final Result * Hepatitis C Screening (09/29/2009) [facility] Hepatitis C Screening Abstracted Historical Vikash ROSADO HEALTH MAINTENANCE Final Result from Last 3 Months or Most Recently Relevant to Health Maintenance Insurance [employer] MED[employer]ARE [employer]VANTAGE Care Teams Digital Pre Press Operator Relationship Specialty Start Date End Date Joy Enriquez MD [address] [place] [address] PCP - General 05/31/05
--- OUTSIDE RECORDS SUMMARY | 2025-07-01 14:01 | XMS_ITS | Clinical Summary ---
Author Organization [facility] Address [address] [place] [address] Care Team Providers Care Envelope Sealer Operator Name Role Phone Joy Enriquez MD Primary Care Provider [phone] Allergies No known active allergies Medications Medication [...] age to complete this topic Care Teams Envelope Sealer Operator Relationship Specialty Start Date End Date Joy Enriquez MD PCP - General Internal Medicine 02/27/19
== END 2025-07-01 11:11 | disposition home or self-care (01) ==
LOC: HO.HPS 10:46
PROVIDERS: PCP Internal Medicine; Visit Provider Nurse Practitioner Family
DX: J45.909 Unspecified asthma, uncomplicated (principal); G47.33 Obstructive sleep apnea (adult) (pediatric); G47.34 Idiopathic sleep related nonobstructive alveolar hypoventilation
CPT/HCPCS: 99214

== ENCOUNTER → 2025-07-01 10:45 | Outpatient (BNVA) | payer MEDICARE, SELFPAY | PROVIDERS: PCP Internal Medicine; Visit Provider Nurse Practitioner Family | DX: G47.33 Obstructive sleep apnea (adult) (pediatric) (principal); J45.909 Unspecified asthma, uncomplicated; G47.34 Idiopathic sleep related nonobstructive alveolar hypoventilation | CPT/HCPCS: 99212 ==

== ENCOUNTER 2025-09-30 12:56 | Outpatient (REF) | payer MEDICARE, SELFPAY ==
--- OUTSIDE RECORDS SUMMARY | 2025-09-27 11:00 | XMS_ITS | Encounter Summary ---
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 Name Role Phone Joy Enriquez MD Primary Care Provider [phone] Reason for Referral * Consultation (Routine) - Authorized Specialty Diagnoses / Procedures Referred By Contac t Referred To Contact Bariatrics Diagnoses Prediabetes TUAN (obstructive sleep apnea) Morbid obesity with BMI of 45.0-49.9, adult ([facility] V24, [facility] V28) Primary hypertension Hypercholesterolemia Gastroesophageal reflux disease, unspecified whether esophagitis present Stage 3a chronic kidney disease ([facility] V24, [facility] V28) Moderate persistent asthma without complication Mely Joyce PA [address] [place] [address] Phone: tel: fax: Bariatric Surgery [address] [place] [address] Phone: tel: fax: Referral ID Status Reason Start Date Expiration Date Visits Requested Visits Authorized [id number] Authorized Specialty Services Required 09/27/2026 1 1 Reason for Visit * Reason Comments Medicare Annual Wellness Visit Initial Follow-up Encounter Details Date Type Department Care Team ([facility] st Contact Info) Description 09/27/2025 11:00 AM EST Office Visit Adult Medicine [address] [phone] Mely Joyce PA [address] [place] [address] Encounter for annual wellness visit (AWV) in Medicare patient (Primary Dx); Prediabetes; TUAN (obstructive sleep apnea); Morbid obesity with BMI of 45.0-49.9, adult ([facility] V24, [facility] V28); Primary hypertension; Hypercholesterolemia; Gastroesophageal reflux disease, unspecified whether esophagitis present; Stage 3a chronic kidney disease ([facility] V24, [facility] V28); Moderate persistent asthma without complication Social History Tobacco Use Types Packs/Day Years Used Date Smoking Tobacco: Never Smokeless Tobacco: Never Tobacco Cessation:Counseling Given: Not Answered Alcohol Use Standard Drinks/Week Comments No 0 (1 standard drink = 0.6 oz pur e alcohol) Housing Instability Answer Date Recorde d Are you worried that in the next 2 months you may not have stable housing? No 09/27/2025 Food Access & Nutrition Answer Date Rec orded Do you have access to a vari ety of food including fruits and vegetables? Yes 09/27/2025 Access to Healthcare Answer Date Record ed Within the last 3 months, ho w many times did you visit the emergency department for your medical care? 0 09/27/2025 Health Literacy Answer Date Recorded How often do you need to hav e someone help you when you read instructions, pamphlets, or other written material from your doctor or pharmacy? Never 09/27/2025 Caregiver: How often do you need to have someone help you when you read instructions, pamphlets, or other written material from your doctor or pharmacy? Not on file 09/27/2025 Financial Risk Answer Date Recorded How hard is it for you to pa y for the very basics like food, housing, medical care, and air conditioning / heating? Not very hard 09/27/2025 Transportation Answer Date Recorded Has the lack of transportati on kept you from meetings, work, or from getting things needed for daily living? Yes Has the lack of transportati on kept you from medical appointments or from getting medications? Yes 09/27/2025 Social Isolation Answer Date Recorded How often do you feel lonely or isolated from th ose around you? Never 09/27/2025 Food Risk Answer Date Recorded Within the past 12 months we worried whether our food would run out before we got money to buy more. Sometimes true 025 Within the past 12 months th e food we bought just didn't last and we didn't have money to get more. Sometimes true 09/27/2025 Dependent Care Answer Date Recorded Do you need help finding or paying for care for your loved ones. For example, child day care teacher or elderly care for an older adult? No 09/27/2025 Education Answer Date Recorded Do you think completing more education or training, like finishing a GED, going to college, or learning a trade, would be helpful for you? N/A 09/27/2025 Employment and Income Answer Date Recor ded During the last four weeks, have you been actively looking for work? No 09/27/2025 Living Situation Answer Date Recorded What is your living situation? Unrecognized valu e 09/27/2025 Comments No Sex and Gender Information Value Date Recorded Sex Assigned at Female 11/13/2024 10:55 PM EST Legal Sex Female 10:35 AM EST Gender Identity Female 11/13/2024 10:55 PM EST Sexual Orientation Straight 11/13/2024 10 :55 PM EST documented as of this encounter Last Filed Vital Signs Vital Sign Reading Time Taken Comments Blood Pressure 132/78 09/27/2025 11:48 AM EST Pulse 97 09/27/2025 11:21 AM EST Temperature 35.8 C (96.5 F) 09/27/2025 11:21 AM EST Respiratory Rate 20 09/27/2025 11:21 AM EST Oxygen Saturation 100% 09/27/2025 11:21 AM EST Inhaled Oxygen Concentration - - Weight 127 kg (281 lb) 09/27/2025 11:21 AM EST Height 160 cm (5' 3 ) 09/27/2025 11:21 AM EST Body Mass Index 49.78 09/27/2025 11:21 AM EST documented in this encounter Ordered Prescriptions Prescription Sig Dispense Quantity Refills Last Filled Start Date End Date simvastatin (ZOCOR) 40 mg tablet Take 1 tablet (40 mg total) by mouth at bedtime. 90 tablet 1 09/27/2025 lisinopril (PRINIVIL,ZESTRIL) 40 mg tablet Take 1 tablet (40 mg total) by mouth at bedtime. 90 tablet 1 09/27/2025 documented in this encounter Progress Notes * LONG Julian - 09/27/2025 11:00 AM ESTAddended by: MELY JOYCE on: 09/27/2025 02:02 PM Modules accepted: Level of Service * LONG Julian - 09/27/2025 11:00 AM EST Images from the original note were not included. Medicare Annual Wellness Visit Note Patient Name: Mere Abreu Date of : 1960 Race: Black or Ethnicity: Not Hispan/Lat Date of Service: 09/27/2025 Patient Care Team: Joy Enriquez MD as PCP - General DME: CPAP, shower chair HPI: Mere is a 65 y.o. female presenting for Annual Wellness Visit Problem List[1] Allergies[2] Current Outpatient Medications Medication Instructions albuterol HFA (Ventolin HFA) 90 mcg/actuation inhaler Inhale 2 Puffs into the lungs every 4 hours as needed for Cough, Wheezing or Shortness of Breath for up to 30 days. budesonide-formoteroL (SYMBICORT) 160-4.5 mcg/actuation inhaler 2 puffs, Every 12 hours hydroCHLOROthiazide (HYDRODIURIL) 25 mg, oral, Daily lisinopril (PRINIVIL,ZESTRIL) 40 mg, oral, Nightly simvastatin (ZOCOR) 40 mg, oral, Nightly Medical History[3] Surgical History[4] Social History[5] Family History[6] Immunization History Administered Date(s) Administered Hepatitis B (Yefwczy-P-Wpmlj, Recombivax HB-Adult) 19yo and older 06/02/2005, 07/02/2005 Influenza Quadravalent, MDCK, 0.5ml, preservative free (Flucelvax) 6mo and older 08/06/2021, 09/02/2022, 11/17/2023 Influenza Quadravalent, MDCK, 0.5ml, with preservative (Flucelvax) 6mo and older 10/06/2017 Influenza Quadrivalent, 0.5ml, preservative free (Fluarix; FluLaval; Fluzone) ages 6mo and older (Afluria) 3yo and older 07/25/2020 Influenza trivalent, 0.5mL (Fluad) 65yo and older 12/24/2024, 09/27/2025 Influenza trivalent, 0.5mL, preservative free (Fluarix; FluLaval; Fluzone) ages 6mo and older (Afluria) 3 years and older 10/15/2016, 07/25/2020 Pneumococcal conjugate 20 valent (Prevnar 20, PCV 20) 2mo and older 12/24/2024 Td Tetanus diptheria (Tdvax) 7yo and older 02/18/2003, 06/09/2023 Tdap Tetanus diptheria acellular pertussis (Boostrix; Adacel) 7yo and older 08/02/2013 Health Maintenance Topic Date Due COVID-19 Vaccine (1) Never done Zoster Vaccines (1 of 2) Never done Hepatitis B Vaccines (3 of 3 - 19+ 3-dose series) 12/03/2005 RSV Immunization Adult Patients (1 - Risk 50-74 years 1-dose series) Never done Medicare Annual Wellness Visit Never done Hypertension/CHF/CAD Annual BMP Blood Test 03/06/2026 Falls Risk Assessment 09/27/2026 Social Influencers of Health Screening 09/27/2026 Breast Cancer Screening 05/17/2027 Cholesterol Screening (Lipid Panel) 03/06/2030 Colorectal Cancer Screening: Colonoscopy 04/22/2031 DTaP,Tdap,and Td Vaccines (4 - Td or Tdap) 06/09/2033 Osteoporosis Screening (Bone Density Screening) 09/18/2034 Influenza Vaccine Completed Pneumococcal Vaccine: 50+ Years Completed Hepatitis C Screening Completed Depression Screening Completed HIB Vaccines Aged Out IPV Vaccines Aged Out Hepatitis A Vaccines Aged Out MMR Vaccines Aged Out Varicella Vaccines Aged Out Meningococcal ACWY Vaccine Aged Out Meningococcal B Vaccine Aged Out HPV Vaccines Aged Out RSV Immunization Patients Under 20 months Aged Out Cognitive Function Assessment: Cognitive screening performed. Mini COG Clock Drawing Test: Normal Word Recall: Three Words Mini Cog Score: 5 Mini Cog Results: Negative screen for dementia Fall Screening: Fallen in the past year?: No Feels unsteady when standing or walking?: Yes Worries about falling?: No Activity of Daily Living (ADLs): Activity of Daily Living (ADLs) Are you able to independently move around your home, with or without an assistive device such as a walker or wheelchair?: No Do you need help from others grooming, bathing, or dressing?: No Do you need help from others with eating?: No Do you need help from others for toileting?: No Do you experience urinary incontinence?: Yes Do you experience fecal incontinence?: No Instrumental Activities of Daily Living (IADLs): Do you need help with using the telephone?: No Do you need help with shopping?: Yes Do you need help with food preparation?: No Do you need help with housekeeping?: No Do you need help with laundry?: Yes Do you need help handling finances?: No Do you drive?: Yes Do you manage your own medication?: Yes, independent Functional Ability and Level of Safety Review Health Status: Have you been hospitalized since we last saw you?: No If you use medical equipment (e.g.: CPAP Machine), do you have a preferred supplier?: Yes In general, the patient reports health as: good In general, patient reports life as: excellent Patient reports sleep pattern as: restless Have you been bothered by sexual problems? : No Have you seen a dentist in the last year?: No Physical Activity: Do you exercise for about 20 minutes or more three days a week?: No Nutritional Assessment: Do you eat a balanced diet including daily serving of fruits, vegetables, and whole grains?: Yes, most of the time Safety: Safety: Does the patient live alone?: Yes Does your home have throw rugs, poor lighting, or a slippery bathtub/shower?: No Does your home have functioning smoke detection?: Yes Do you use any assistive devices?: Yes Do you always fasten your seatbelt?: Yes Psychosocial Risks: Has stress been negatively affecting your life?: No Has anger been negatively affecting your life?: No Have you been bothered by unusual fatigue?: Yes Social Determinants of Health Social Influencers of Health Who provided answers?: Self Within the past 12 months we worried whether our food would run out before we got money to buy more.: Sometimes true Within the past 12 months the food we bought just didn't last and we didn't have money to get more.: Sometimes true How hard is it for you to pay for the very basics like food, housing, medical care, and air conditioning / heating?: Not very hard Are you worried that in the next 2 months you may not have stable housing?: No Do you have access to a variety of food including fruits and vegetables?: Yes Within the last 3 months, how many times did you visit the emergency department for your medical care?: 0 Has the lack of transportation kept you from meetings, work, or from getting things needed for daily living?: Yes Has the lack of transportation kept you from medical appointments or from getting medications?: Yes How often do you feel lonely or isolated from those around you?: Never How often do you need to have someone help you when you read instructions, pamphlets, or other written material from your doctor or pharmacy?: Never Objective BP (!) 146/76 Comment: average Pulse 97 Temp 35.8 ??C (96.5 ??F) (Temporal) Resp 20 Ht 1.6 m (63 ) Wt 127 kg (281 lb) BMI 49.78 kg/m?? SpO2: 100 % Hearing: Patient denies wearing hearing aids Vision Screening: Patient reports wearing glasses, denies wearing contacts Physical Exam Patient presented today for an subsequent annual wellness visit. Risk Assessments: Body mass index is 49.78 kg/m??. The BMI is above average. The patient received dietary education and exercise education because they have an above normal BMI. Fall Risk: Have you fallen in the past year? no. Are you worried about falling? no. Discussed: no fall risk fall education provided. PHQ -9 Depression Risk Score: 0 Depression plan: Screen was negative PHQ-9: 0 Pain Medication: Patient does not take any opioid medications Advance Care Planning Advance care planning is the process of planning for future medical care in case you are unable to make your own medical decisions. It involves choosing a health care national sales representative and reviewing future health care directives. The patient indicates he would like to remain full code at this time; states she believes she appointed her daughter's healthcare proxy, but has not yet formally appointed DURABLE POWER OF BRANCH MAKER and is asked to write copies of the documents, when available, to update medical record. Health Maintenance Due Topic Date Due COVID-19 Vaccine (1) Never done Zoster Vaccines (1 of 2) Never done Hepatitis B Vaccines (3 of 3 - 19+ 3-dose series) 12/03/2005 RSV Immunization Adult Patients (1 - Risk 50-74 years 1-dose series) Never done Medicare Annual Wellness Visit Never done The following vaccine(s) were recommended: Vaccines Recommended: COVID vaccine, Shingles vaccines (Shringrix) , and RSV vaccine (Arexvy or Abrysvo) Patient Instructions (the written plan) as discussed and documented in our visit today. LONG Julian [facility] [address] [address] Dept: [phone] Dept This chart was generated by the [employer] system and [employer] speech recognition software and may contain inherent errors or omissions not intended by the user. Grammatical errors, random word insertions, deletions, pronoun errors and incomplete sentences are occasional consequences of this technologydue to software limitations. Not all errors are caught or corrected. If there are questions or concerns about the content of this note or information contained within the body of this dictation they should be addressed directly with the author for clarification. [1] Patient Active Problem List Diagnosis Abnormal ankle brachial index Ventral hernia Anxiety Arthritis of knee, left Arthritis, degenerative Asthma Asymptomatic varicose veins Cervical herniated disc CKD (chronic kidney disease) stage 3, GFR 30-59 ml/min ([facility] V24, [facility] V28) History of COVID-19 Degenerative disc disease, lumbar Esophageal reflux Hypercholesterolemia Hypertension Onychomycosis TUAN (obstructive sleep apnea) Prediabetes Premature atrial complexes Morbid obesity with BMI of 45.0-49.9, adult ([facility] V24, [facility] V28) [2] No Known Allergies [3] Past Medical History: Diagnosis Date Anxiety 09/01/2020 Asthma 03/23/2017 Asymptomatic varicose veins 07/30/2007 CKD (chronic kidney disease) stage 3, GFR 30-59 ml/min ([facility] V24, [facility] V28) 03/03/2023 COVID-19 virus infection 04/16/2020 Esophageal reflux 07/30/2007 Hypertension 02/23/2006 Morbid obesity ([facility] V24, [facility] V28) 05/14/2009 Onychomycosis 08/02/2013 TUAN (obstructive sleep apnea) 03/31/2016 Prediabetes 03/23/2017 Pure hypercholesterolemia 08/04/2007 Ventral hernia 12/24/2019 Repaired 08/05 - incarcerated, adhesion lysis, mesh placed [4] Past Surgical History: Procedure Laterality Date CHOLECYSTECTOMY COLONOSCOPY 01/04/2011 Normal HERNIA REPAIR REPAIR FIRST ABDOMINAL WALL HERNIA KNEE SURGERY meniscus repair TUBAL LIGATION [5] Social History Tobacco Use Smoking status: Never Smokeless tobacco: Never Substance Use Topics Alcohol use: No Drug use: No [6] Family History Problem Relation Name Age of Onset Hypertension Mother elevated cholesterol Heart attack Father 74 Cervical cancer Sister Breast cancer Aunt p paternal Ovarian cancer Neg Hx Colon cancer Neg Hx * LONG Julian - 09/27/2025 11:00 AM EST CHIEF COMPLAINT: Medicare Annual Wellness Visit Initial and Follow-up IDENTIFIER: Mere Abreu is a 65 y.o. old female. HPI: I have obtained verbal consent from Mere Abreu prior to the recording. I have advised Mere Abreu that they may refuse the recording and require the recording to be turned off at any time during this encounter. History of Present Illness Prediabetes: Need updated hemoglobin A1c. Hypertension: Initially elevated, but improved upon recheck. Patient continues with lisinopril 40 mg daily and hydrochlorothiazide 25 mg daily. CKD: Most recent renal profile consistent with stage II CKD. Hyperlipidemia: We did discuss pharmacy records indicate simvastatin was last filled on 05/03/25 for only 90 days, but she states that she has been consistently taking this daily; unclear if taking medication and she is asked to review her medications when she returns home. GERD: Reportedly stable without medication. Denies vomiting or melena. Asthma: Patient reports following with pulmonology with pending appointment later this month. She continues with Symbicort (budesonide/formoterol) 2 puffs twice daily and albuterol once daily; we diddiscuss she should notify pulmonology if using rescue medications more than 3 times weekly. Denies current difficulty breathing or wheezing. TUAN: Patient reports compliance with CPAP machine. Morbid obesity: Current Body mass index is 49.78 kg/m??. with goal being less than 25. Patient expresses interest in referral to bariatric clinic to discuss pharmacologic management. Encouraged pursue Shingrix immunization series at local pharmacy along with RSV vaccine and COVID-19 booster. ROS: GENERAL: No fever, shaking chills RESPIRATORY: No shortness of breath CARDIOVASCULAR: No chest pain PAST MEDICAL HISTORY: Patient Active Problem List Diagnosis Date Noted Abnormal ankle brachial index 08/27/2024 CKD (chronic kidney disease) stage 3, GFR 30-59 ml/min ([facility] V24, [facility] V28) 03/03/2023 Anxiety 09/01/2020 History of COVID-19 04/16/2020 Ventral hernia 12/24/2019 Arthritis of knee, left 03/27/2019 Asthma 03/23/2017 Prediabetes 03/23/2017 Premature atrial complexes 03/23/2017 TUAN (obstructive sleep apnea) 03/31/2016 Arthritis, degenerative 03/31/2015 Onychomycosis 08/02/2013 Cervical herniated disc 11/17/2010 Degenerative disc disease, lumbar 11/17/2010 Morbid obesity with BMI of 45.0-49.9, adult ([facility] V24, [facility] V28) 05/14/2009 Hypercholesterolemia 08/04/2007 Asymptomatic varicose veins 07/30/2007 Esophageal reflux 07/30/2007 Hypertension 02/23/2006 Surgical History[1] SOCIAL HISTORY: Social History Tobacco Use Smoking status: Never Smokeless tobacco: Never Substance Use Topics Alcohol use: No FAMILY HISTORY: Family History[2] Family Status Relation Name Status Mother (Not Specified) Father (Not Specified) Sister (Not Specified) Aunt p Neg Hx (Not Specified) No partnership data on file MEDICATIONS DISCONTINUED/REORDERED: Medications Discontinued During This Encounter Medication Reason acetaminophen (TYLENOL) 500 mg tablet Therapy completed simvastatin (ZOCOR) 40 mg tablet Reorder lisinopril (PRINIVIL,ZESTRIL) 40 mg tablet Reorder ACTIVE MEDICATIONS: Medications Taking[3] ALLERGIES: Allergies[4] PHYSICAL EXAM: Visit Vitals BP (!) 146/76 Comment: average Pulse 97 Temp 35.8 ??C (96.5 ??F) (Temporal) Resp 20 Ht 1.6 m (63 ) Wt 127 kg (281 lb) SpO2 100% BMI 49.78 kg/m?? OB Status Postmenopausal Smoking Status Never BSA 2.23 m?? Wt Readings from Last 5 Encounters: 09/27/25 127 kg (281 lb) 12/24/24 125 kg (275 lb) 11/13/24 124 kg (273 lb) 05/18/24 123 kg (272 lb 3.2 oz) 11/17/23 121 kg (265 lb 11.2 oz) BMI is greater than 25.0 (above the normal range) - see Plan Physical Exam APPEARANCE: Alert, morbidly obese, and in no acute distress HEART: RRR with normal S1 and S2, no murmurs, no gallops LUNG: Bilateral lung agustin clear to auscultation throughout LABS: Orders Placed This Encounter Procedures Influenza trivalent, 0.5mL (Fluad) 65yo and older Ambulatory referral to Bariatric Surgery IMAGING: None IMPRESSION: 1. Prediabetes 2. TUAN (obstructive sleep apnea) 3. Morbid obesity with BMI of 45.0-49.9, adult ([facility] V24, [facility] V28) 4. Primary hypertension 5. Hypercholesterolemia 6. Gastroesophageal reflux disease, unspecified whether esophagitis present 7. Stage 3a chronic kidney disease ([facility] V24, [facility] V28) 8. Moderate persistent asthma without complication Assessment & Plan Prediabetes: Will continue to monitor hemoglobin A1c; advised weight loss via calorie restriction, low carbohydrate diet, increased water intake, and exercise to slow progression of diabetes. Hyperlipidemia: We did discuss pharmacy records indicate simvastatin was last filled on 05/03/25 for only 90 days, but she states she has been consistently taking this daily; unclear if taking medication andshe is asked to review her medications when she returns home. Will updated fasting lipid profile. Asthma: Asymptomatic at time of exam, patient reports using Symbicort (budesonide/formoterol) 2 puffs twicedaily and albuterol once daily. She reports a pending appoint with pulmonology later this month. She is recommended to discuss stepup therapy for baseline asthma management as using rescue medication more than 3 times weekly Chronic kidney disease: Continue monitoring kidney function. Encourage adequate hydration (at least 64 ounces of water daily) and avoid NSAIDs such as ibuprofen and Aleve. Morbid obesity: Refer to a weight manager talent management. Advise contacting the insurance provider about coverage for weight loss medications. Needs improvement; current Body mass index is 49.78 kg/m . with goal of <25. We discussed relationship between weight and prediabetes, hypertension and hyperlipidemia and patient understands blood sugar, cholesterol and blood pressure would improve with weight loss. Helpful measures: Calorie restriction (<1500 freeman/day x 6 months), increased water intake (>64 oz/ day), and exercise as tolerated (ideally 30 min/day, 5x per week). Obstructive sleep apnea: Continue with nightly CPAP use Hypertension: The patient had elevated blood pressure during the visit, which improved upon recheck. She is on hydrochlorothiazide 25 mg and lisinopril 40 mg. Advise continuing the current medication regimen and monitoring blood pressure at home, goal being less than 130/80 Medication and lab orders: Orders Placed This Encounter Procedures Influenza trivalent, 0.5mL (Fluad) 65yo and older Ambulatory referral to Bariatric Surgery Other orders: INFLUENZA TRIVALENT, 0.5ML (FLUAD) 65YO AND OLDER AMB REFERRAL TO BARIATRIC SURGERY [facility] on 09/27/2025 at 1:49 PM EST This chart was generated by the [employer] system and [employer] speech recognition software and may contain inherent errors or omissions not intended by the user. Grammatical errors, random word insertions, deletions, pronoun errors and incomplete sentences are occasional consequences of this technologydue to software limitations. Not all errors are caught or corrected. If there are questions or concerns about the content of this note or information contained within the body of this dictation they should be addressed directly with the author for clarification. [1] Past Surgical History: Procedure Laterality Date CHOLECYSTECTOMY COLONOSCOPY 01/04/2011 Normal HERNIA REPAIR REPAIR FIRST ABDOMINAL WALL HERNIA KNEE SURGERY meniscus repair TUBAL LIGATION [2] Family History Problem Relation Name Age of Onset Hypertension Mother elevated cholesterol Heart attack Father 74 Cervical cancer Sister Breast cancer Aunt p paternal Ovarian cancer Neg Hx Colon cancer Neg Hx [3] Outpatient Medications Marked as Taking for the 09/27/25 encounter (Office Visit) with [facility] Medication Sig Dispense Refill albuterol HFA (Ventolin HFA) 90 mcg/actuation inhaler Inhale 2 Puffs into the lungs every 4 hours as needed for Cough, Wheezing or Shortness of Breath for up to 30 days. budesonide-formoteroL (SYMBICORT) 160-4.5 mcg/actuation inhaler Inhale 2 puffs by mouth every 12 (twelve) hours. hydroCHLOROthiazide (HYDRODIURIL) 25 mg tablet Take 1 tablet (25 mg total) by mouth 1 (one) time each day. 90 tablet 0 lisinopril (PRINIVIL,ZESTRIL) 40 mg tablet Take 1 tablet (40 mg total) by mouth at bedtime. 90 tablet 1 simvastatin (ZOCOR) 40 mg tablet Take 1 tablet (40 mg total) by mouth at bedtime. 90 tablet 1 [DISCONTINUED] acetaminophen (TYLENOL) 500 mg tablet Take 2 tablets (1,000 mg total) by mouth every8 (eight) hours. 30 tablet 0 [DISCONTINUED] lisinopril (PRINIVIL,ZESTRIL) 40 mg tablet TAKE 1 TABLET BY MOUTH EVERYDAY AT BEDTIME 90 tablet 1 [DISCONTINUED] simvastatin (ZOCOR) 40 mg tablet TAKE 1 TABLET BY MOUTH EVERYDAY AT BEDTIME 90 tablet 1 [4] No Known Allergies documented in this encounter Plan of Treatment Upcoming Encounters Date Type Department Care Team (Late st Contact Info) Description 03/31/2026 2:30 PM EDT Office Visit Adult Medicine [facility] [address], [place] [phone] Joy Enriquez MD [address] [place], [place] Scheduled Referrals Name Type Priority Associated Diagnoses Orde r Schedule Ambulatory referral to Bariatric Surgery Outpatient Referral Routine Prediabetes TUAN (obstructive sleep apnea) Morbid obesity with BMI of 45.0-49.9, adult ([facility] V24, [facility] V28) Primary hypertension Hypercholesterolemia Gastroesophageal reflux disease, unspecified whether esophagitis present Stage 3a chronic kidney disease ([facility] V24, [facility] V28) Moderate persistent asthma without complication 1 Occurrences starting 09/27/2025 until 09/27/2026 documented as of this encounter Visit Diagnoses Diagnosis Encounter for annual wellness visit (AWV) in Medicare patient- Primary Prediabetes Other abnormal glucose TUAN (obstructive sleep apnea) Obstructive sleep apnea (adult) (pediatric) Morbid obesity with BMI of 45.0-49.9, adult ([facility] V24, [facility] V28) Primary hypertension Unspecified essential hypertension Hypercholesterolemia Pure hypercholesterolemia Gastroesophageal reflux disease, unspecified whether esophagitis present Stage 3a chronic kidney disease ([facility] V24, [facility] V28) Moderate persistent asthma without complication documented in this encounter Discontinued Medications Medication Sig Discontinue Reason Start Date End Da te acetaminophen (TYLENOL) 500 mg tablet Take 2 tablets (1,000 mg total) by mouth every 8 (eight) hours. Therapy completed 11/14/2024 09/27/2025 simvastatin (ZOCOR) 40 mg tablet TAKE 1 TABLET BY MOUTH EVERYDAY AT BEDTIME Reorder 02/04/2025 09/27/2025 lisinopril (PRINIVIL,ZESTRIL) 40 mg tablet TAKE 1 TABLET BY MOUTH EVERYDAY AT BEDTIME Reorder 05/02/2025 09/27/2025 documented as of this encounter Orders Immunization/Injection Count Last Ordered Date First Ordered Date INFLUENZA TRIVALENT, 0.5ML ( FLUAD) 65YO AND OLDER 1 09/27/2025 documented in this encounter Additional Health Concerns Assessment Noted Time PHQ-9 Depression Total Score: 0 09/27/20 25 11:29 AM EST A fall risk assessment has been complete d for the patient 09/27/2025 11:27 AM EST documented as of this encounter Care Teams Commercial Plumber Relationship Specialty Start Date End Date Joy Enriquez MD [address] [place] [address] PCP - General 05/31/05 documented as of this encounter
--- OUTSIDE RECORDS SUMMARY | 2025-09-30 18:50 | XMS_ITS | Clinical Summary ---
Author Organization [facility] [address] [facility] Address [address] [place] [address] Phone Care Team Providers Care Gastroenterology Professor Name Role Phone Joy Enriquez MD Primary Care Provider Allergies No known active allergies Medications albuterol HFA (Ventolin HFA) 90 mcg/actuation inhaler Inhale 2 Puffs into the lungs every 4 hours as needed for Cough, Wheezing or Shortness of Breath for up to 30 days. 08/19/20 21 Active hydroCHLOROthi azide (HYDRODIURIL) 25 mg tablet Take 1 tablet (25 mg total) by mouth 1 (one) time each day. 90 tablet 09/27/20 25 Active budesonide-for moteroL (SYMBICORT) 160-4.5 mcg/actuation inhaler Inhale 2 puffs by mouth every 12 (twelve) hours. 07/01/20 25 Active lisinopril (PRINIVIL,ZEST RIL) 40 mg tablet Take 1 tablet (40 mg total) by mouth at bedtime. 90 tablet 1 09/27/20 25 Active simvastatin (ZOCOR) 40 mg tablet Take 1 tablet (40 mg total) by mouth at bedtime. 90 tablet 1 09/27/20 25 Active acetaminophen (TYLENOL) 500 mg tablet Take 2 tablets (1,000 mg total) by mouth every 8 (eight) hours. 30 tablet 11/14/19 25 025 Discontinued(Th erapy completed) simvastatin (ZOCOR) 40 mg tablet TAKE 1 TABLET BY MOUTH EVERYDAY AT BEDTIME 90 tablet 1 02/05/20 25 025 Discontinued(Re order) lisinopril (PRINIVIL,ZEST RIL) 40 mg tablet TAKE 1 TABLET BY MOUTH EVERYDAY AT BEDTIME 90 tablet 1 05/02/20 25 025 Discontinued(Re order) hydroCHLOROthi azide (HYDRODIURIL) 25 mg tablet Take 1 tablet (25 mg total) by mouth 1 (one) time each day. 90 tablet 06/20/20 25 025 Discontinued Active Problems Problem Noted Date Diagnosed Date Abnormal ankle brachial index 08/27/2024 Overview (08/27/2024): Volume plethysmography to screen for PAD. Overall normal. Left side 1.09, normal. Right side 0.95, borderline. CKD (chronic kidney disease) stage 3, GFR 30-59 ml/min 03/03/2023 Anxiety 09/01/2020 History of COVID-19 04/16/2020 Ventral hernia 12/24/2019 Overview (08/27/2024): Repaired 08/05 - incarcerated, adhesion lysis, mesh placed Arthritis of knee, left 03/27/2019 Asthma 03/23/2017 Prediabetes 03/23/2017 Premature atrial complexes 03/23/2017 TUAN (obstructive sleep apnea) 03/31/2016 Overview (08/27/2024): [facility] Home Polysomnogram: Date 06/24/2017; AHI 18, Unclassified apneas 0; Obstructive apneas 8; Central apneas 6; Mixed apneas 0; hypopneas 83; average oxygen saturation 95% (lowest 84% without saturations <88% for 5% or more of study) Arthritis, degenerative 03/31/2015 Onychomycosis 08/02/2013 Cervical herniated disc 11/17/2010 Degenerative disc disease, lumbar 11/17/2010 Morbid obesity with BMI of 45.0-49.9, adult 04/17 Hypercholesterolemia 08/04/2007 Asymptomatic varicose veins 07/30/2007 Esophageal reflux 07/30/2007 Hypertension 02/23/2006 Encounters Date Type Department Care Team Description 09/27/2025 11:00 AM EST Office Visit Adult Medicine [address] [phone] Nena Andrew PA Encounter for annual wellness visit (AWV) in Medicare patient (Primary Dx); Prediabetes; TUAN (obstructive sleep apnea); Morbid obesity with BMI of 45.0-49.9, adult ([facility] [place], [facility] [place]); Primary hypertension; Hypercholesterolemia; Gastroesophageal reflux disease, unspecified whether esophagitis present; Stage 3a chronic kidney disease ([facility] [place], [facility] V28); Moderate persistent asthma without complication 07/31/2025 Telephone Adult Medicine [address] [phone] Joy Enriquez MD from Last 3 Months Immunizations Immunization Administration Dates Next Due Hepatitis B (Vmtdelc-Y-Rkvde , Recombivax HB-Adult) 19yo and older 07/02/2005,06/02/2005 Influenza Quadravalent, MDCK , 0.5ml, preservative free (Flucelvax) 6mo and older 11/17/2023,09/02/2022,08/06/2021 Influenza Quadravalent, MDCK , 0.5ml, with preservative (Flucelvax) 6mo and older 10/06/2017 Influenza Quadrivalent, 0.5m l, preservative free (Fluarix; FluLaval; Fluzone) ages 6mo and older (Afluria) 3yo and older 07/25/2020 Influenza trivalent, 0.5mL ( Fluad) 65yo and older 09/27/2025,12/24/2024 Influenza trivalent, 0.5mL, preservative free (Fluarix; FluLaval; [...] Pure hypercholesterolemia 08/04/2007 Onychomycosis 08/02/2013 Morbid obesity ([facility] [place], [facility] [place]) 009 TUAN (obstructive sleep apnea) 03/31/2016 COVID-19 virus infection 04/16/2020 Anxiety 09/01/2020 Asthma 03/23/2017 CKD (chronic kidney disease) stage 3, GFR 30-59 ml/min ([facility] [place], [facility] [place]) 03/03/2023 Hypertension 02/23/2006 Prediabetes 03/23/2017 Ventral [...] care for your loved ones. For example, special needs child caregiver or elderly care for an older adult? [...] Mass Index 49.78 09/27/2025 11:21 AM EST Plan of Treatment Upcoming Encounters Date Type Department Care Team (Late st Contact Info) Description 03/31/2026 2:30 PM EDT Office Visit Adult Medicine [facility] [address] [place], [place] [phone] Joy Enriquez MD [address] [place], [place] Health Maintenance Due Date Last Done Comments COVID-19 Vaccine (#1) 1964 Zoster Vaccines (1 of 2) 1978 Hepatitis B Vaccines (3 of 3 - 19+ 3-dose series) 12/03/2005 07/02/2005, 06/02/2005 RSV Immunization Adult Patients (1 - Risk 50-74 years 1-dose series) 2009 Hypertension/CHF/CAD Annual BMP Blood Test 03/06/2026 03/06/2025, 11/13/2024, 11/17/2023 Falls Risk Assessment 09/27/2026 09/27/2025 Medicare Annual Wellness Visit 09/27/2026 09/27/2025 Social Influencers of Health Screening 09/27/2026 09/27/2025 Breast Cancer Screening 05/17/2027 05/17/20 25, 05/04/2024, 05/04/2024, Additional history exists Cholesterol Screening (Lipid Panel) 03/06/2030 03/06/2025, 11/17/2023 Colorectal Cancer Screening: Colonoscopy 04/22/2031 04/22/2021, 04/22/2021 DTaP,Tdap,and Td Vaccines (4 - Td or Tdap) 06/09/2033 06/09/2023, 08/02/2013, 02/18/2003 Osteoporosis Screening (Bone Density Screening) 09/18/2034 09/18/2024 Hepatitis C Screening Completed 09/29/2009 Pneumococcal Vaccine: 50+ Years Completed 12/24/2024 Depression Screening Completed 09/27/2025 Influenza Vaccine Completed 09/27/2025, , 11/17/2023, Additional history exists HIB Vaccines Aged Out No longer eligi [...] of 45.0-49.9, adult (CMS/HCC V24, CMS/HCC V28) BD BONE DENSITY DXA AXIAL SKELETON [...] is recommended in 1 year. MAMMO LOCATION: [facility], [address] [place] [address], [address], . -------- FINAL REPORT -------- Dictated By: Angely Coburn Dictated Date: 05/20/2025 17:51 ET Assigned Physician: Angely Coburn Reviewed and Electronically Signed By: Angely Coburn Signed Date: 05/20/2025 17:51 ET Workstation ID: [id number] Transcribed By: Self Edit Transcribed Date: 05/20/2025 [...] is recommended in 1 year. MAMMO LOCATION: [facility], [address] [place] [address], [id number], . -------- FINAL REPORT -------- Dictated By: Angely Coburn Dictated Date: 05/20/2025 17:51 ET Assigned Physician: Angely Coburn Reviewed and Electronically Signed By: Angely Coburn Signed Date: 05/20/2025 17:51 ET Workstation ID: [id number] Transcribed By: Self Edit Transcribed Date: 05/20/2025 17:51 ET us Joy Enriquez MD IMG BI PROCEDURES Final Result * Lipid panel with reflex to direct LDL (03/06/2025 10:33 AM EDT) Cholesterol 163 0 - 200 mg/dL LAB CHEMISTRY METHOD 03/06/2025 12:32 PM [facility] Triglycerides 76 0 - 150 mg/dL LAB CHEMISTRY METHOD 03/06/2025 12:32 PM [facility] HDL 60 >=40 mg/dL LAB CHEMISTRY METHOD 03/06/2025 12:32 PM [facility] LDL Calculated 88 0 - 100 mg/dL LAB CHEMISTRY METHOD 03/06/2025 12:32 PM [facility] VLDL Cholesterol Kj 15.2 mg/dL LAB CHEMISTRY METHOD 03/06/2025 12:32 PM [facility] Non HDL Chol. (LDL+VLDL) 103 <145 mg/dL LAB CHEMISTRY METHOD 03/06/2025 12:32 PM [facility] Chol/HDL Ratio 2.7 0.0 - 4.4 LAB CHEMISTRY METHOD 03/06/2025 12:32 PM [facility] Blood Venous blood specimen / Unknown Venipuncture / Unknown 03/06/2025 10:33 AM EDT 03/06/2025 10:33 AM EDT us Nena ALVES LAB BLOOD ORDERABLES Final Re sult [facility] [address] [place] [address], * Comprehensive metabolic panel (03/06/2025 10:33 AM EDT) Sodium 141 133 - 145 mmol/L LAB CHEMISTRY METHOD 03/06/2025 12:32 PM [facility] Potassium 3.5 3.5 - 5.5 mmol/L LAB CHEMISTRY METHOD 03/06/2025 12:32 PM [facility] Chloride 110 96 - 110 mmol/L LAB CHEMISTRY METHOD 03/06/2025 12:32 PM [facility] CO2 26 21 - 32 mmol/L LAB CHEMISTRY METHOD 03/06/2025 12:32 PM [facility] Anion Gap 5 3 - 11 LAB CHEMISTRY METHOD 03/06/2025 12:32 PM [facility] Glucose 94 70 - 100 mg/dL LAB CHEMISTRY METHOD 03/06/2025 12:32 PM [facility] BUN 16 5 - 25 mg/dL LAB CHEMISTRY METHOD 03/06/2025 12:32 PM [facility] Creatinine 0.92 0.50 - 1.10 mg/dL LAB CHEMISTRY METHOD 03/06/2025 12:32 PM [facility] eGFR 69 >=60 mL/min/1. 73m2 LAB CHEMISTRY METHOD 03/06/2025 12:32 PM [facility] Comment:Calculation based on the Chronic Kidney Disease Epidemiology Collaboration (CKD-EPI) equation refit without adjustment for race. BUN/Creatinine Ratio 17.4 LAB CHEMISTRY METHOD 03/06/2025 12:32 PM EDT [facility] Calcium 9.3 8.5 - 10.5 mg/dL LAB CHEMISTRY METHOD 03/06/2025 12:32 PM [facility] AST (SGOT) 25 10 - 42 unit/L LAB CHEMISTRY METHOD 03/06/2025 12:32 PM [facility] ALT (SGPT) 21 10 - 60 unit/L LAB CHEMISTRY METHOD 03/06/2025 12:32 PM T [facility] Alkaline Phosphatase 82 42 - 121 unit/L LAB CHEMISTRY METHOD 03/06/2025 12:32 PM T [facility] Total Protein 6.9 6.0 - 8.0 g/dL LAB CHEMISTRY METHOD 03/06/2025 12:32 PM [facility] Albumin 3.3 3.2 - 5.0 g/dL LAB CHEMISTRY METHOD 03/06/2025 12:32 PM [facility] Total Bilirubin 0.4 0.0 - 1.4 mg/dL LAB CHEMISTRY METHOD 03/06/2025 12:32 PM [facility] Blood Venous blood specimen / Unknown Venipuncture / Unknown 03/06/2025 10:33 AM EDT 03/06/2025 10:33 AM EDT us Nena ALVES LAB BLOOD ORDERABLES Final Re sult [facility] [address] [place] [address], * BD Bone Density DXA Axial Skeleton [...] (World Health Organization Fracture Risk Assessment) [facility] Department of Internal Medicine recommends using [...] alternative screening schedule based on halima Gonzalez., [facility] November 04, 2011 for patients with [...] Signed Date: 09/18/2024 14:56 ET Workstation ID: [id number] Transcribed By: Self Edit Transcribed Date: 09/18/2024 [...] years. (World HealthOrganization Fracture Risk Assessment) [facility] Department of Internal Medicine recommendsusing National [...] Signed Date: 09/18/2024 14:56 ET Workstation ID: [id number] Transcribed By: Self Edit Transcribed Date: 09/18/2024 14:55 ET Joy Enriquez MD IMG DXA PROCEDURES Final Result * Colonoscopy (04/22/2021) [facility] Colonoscopy No Interpretation , Abstracted Anatomical Region Laterality Modality Other Historical Provider HEALTH MAINTENANCE Final Result * Hepatitis C Screening (09/29/2009) [facility] Hepatitis C Screening Abstracted Historical Provider HEALTH MAINTENANCE Final Result from Last 3 Months or Most Recently Relevant to Health Maintenance Insurance [employer] MEDICARE ADVANTAGE Care Teams Gastroenterology Professor Relationship Specialty Start Date End Date Joy Enriquez MD [address] [place] [address] PCP - General 05/31/05
--- OUTSIDE RECORDS SUMMARY | 2025-09-30 18:50 | XMS_ITS | Clinical Summary ---
Author Organization [facility] Prior to 03/16/25 Address [address] [place] [address] Care Team Providers Care Keno Writer/Runner Name Role Phone Joy Enriquez MD Primary Care Provider [phone] Allergies No known active allergies Medications Medication [...] age to complete this topic Care Teams Keno Writer/Runner Relationship Specialty Start Date End Date Joy Enriquez MD PCP - General Internal Medicine 02/27/19
== END 2025-09-30 12:57 | disposition home or self-care (01) ==
LOC: HO.CT 12:56
PROVIDERS: PCP Internal Medicine; Visit Provider Nurse Practitioner Family
DX: R94.2 Abnormal results of pulmonary function studies (principal)
CPT/HCPCS: 71250

== ENCOUNTER → 2025-09-30 12:58 | Outpatient (BNV) | payer MEDICARE, SELFPAY | PROVIDERS: PCP Internal Medicine; Visit Provider Radiology Diagnostic Radiology | DX: I27.0 Primary pulmonary hypertension (principal) | CPT/HCPCS: 71250 ==

== ENCOUNTER 2025-10-07 13:01 | Outpatient (AMB) | payer MEDICARE, SELFPAY ==
[2025-10-07 13:06] VITALS: BP 124/86; PULSE 108; O2SAT 95; BMI 49.0
--- NOTE | 2025-10-07 13:06 | A.OFFVIS_ITS ---
Vital Signs 10/07/25 13:06 Height 5 ft 3 in Weight 276 lb 10.882 oz BMI 49.0 BP 124/86 Blood Pressure Location Rt radial Position Sitting Pulse 108 H Pulse Source Pulse Oximeter Pulse Oximetry (%) 95 Oxygen Delivery Method Room Air Intake Visit Reasons: Obstructive sleep apnea Allergies No Known Allergies (No Known Allergies*) Allergy (Verified 10/07/25 13:09) HPI HPI Obstructive sleep apnea: Details: Mere is a pleasant 65-year-old female, never smoker, with underlying asthma, hypertension, TUAN on CPAP, GERD and chronic kidney disease stage III. She continues to report suboptimal control with the use of Advair, continuing to use Albuterol MDI BID for ongoing dyspnea, dry cough, wheezing and chest tightness. She also reports long standing h/o palpitations and tachycardia with ambulation, denies prior cardiology evaluation. Today she presents to review CPAP compliance report and chest CT results. She denies any visits to urgent care or hospitalizations related to respiratory distress since the last visit. Prior home sleep study 03/2025 confirmed mild sleep apnea with an apnea-hypopnea index of 12.8 and oxygen desaturation below 88% for 40 minutes, lowest 74% average 90%. At the last visit she was started on CPAP in APAP mode with pressures 6-20 cmH20. DME is [employer]. She currently uses a nasal mask which she finds much more comfortable compared to the full face mask. [facility] Social History Patient Tobacco Use Status: Never used Tobacco Review of Systems Const Denies chills, Denies excessive sweating, Denies fever(s), Denies headache(s) and Denies night sweats Eyes Denies dry eyes, Denies irritation and Denies itchy eyes ENT Reports Normal hearing present, Denies headache(s), Denies nasal congestion, Denies nasal discharge, Denies post nasal drip and Denies sore throat Card Denies chest pain, Denies chest pain at rest, Denies chest pain with activity, Denies claudication, Denies leg edema, Denies orthopnea and Denies paroxysmal nocturnal dyspnea Resp Denies chest congestion, Denies excessive phlegm production, Denies pain on inspiration, Denies pain with cough and Denies stridor Musc Denies myalgias Neuro Reports Normal hearing present and Denies headache(s) Endo Denies excessive sweating Regis/Lymph Denies lymphadenopathy Aller/Immun Denies itchy eyes and Denies seasonal rhinorrhea Physical Exam Vital Signs: Last Vital Signs Pulse 108 H 10/07/25 13:06 BP 124/86 10/07/25 13:06 Pulse Ox 95 10/07/25 13:06 Oxygen Delivery Method Room Air 10/07/25 13:06 BMI result Body Mass Index 49.0 Const General: cooperative, healthy appearing, comfortable, no acute distress, well developed and alert Nutritional Appearance: obese Orientation/consciousness: patient oriented x3 Limitations: no limitations HEENT Head: Yes normal to inspection, Yes normocephalic and Yes atraumatic Ears: hearing grossly normal bilaterally and external ears normal Eyes General: appearance normal, both eyes and all related structures Eyelids: Yes eyelids normal Sclerae: sclerae normal EOM: EOMs intact bilaterally Neck Neck: Yes normal visual inspection and Yes no lymphadenopathy Lymphatic: no lymphadenopathy noted Chest Chest palpation & inspection: normal inspection of the chest Resp Effort & Inspection: normal respiratory effort, able to speak in complete sentences, no audible wheezes, no cough, no stridor, not tachypneic, no tripod positioning and no use of accessory muscles Auscultation: diminished lung sounds Cardio Jugular venous distension: no JVD Rate: regular rate Rhythm: regular rhythm Skin Other: warm, dry General skin exam: no rashes or lesions noted Neuro General: patient oriented x3 Cranial nerves: Yes Normal hearing present Cognition (Neuro): normal cognition Gait exam (Neuro): Normal gait present Extrem General: Yes normal to inspection, Yes capillary refill normal, Yes no clubbing, cyanosis or edema and Yes no pedal edema Psych Appearance: grossly normal and well kempt Speech and movement: Normal speech and movement present and Clear speech present Affect: normal affect Attitude: cooperative Thought process: Normal thought process present Thought content: Normal thought content present Insight: Good insight present (Psych) Judgement: Good judgement present (Psych) Results Reviewed Results Reviewed: [address] [address] [address] Scan Report Signed Patient: Mere Abreu MR#: [id number] : 1960 Acct:[id number] Age/Sex: 65 / F ADM Date: 09/30/25 Loc: HO.CT Attending Dr: Sallie Lujan NP Ordering Physician: Sallie Lujan NP Date of Service: 09/30/25 Procedure(s): CT chest wo IV con Accession Number(s): [id number] cc: Joy Enriquez MD; Sallie Lujan NP~ Report Number: [id number]: Total DLP = 400.00 mGy-cm Reason for Exam: R94.2 - Abnormal results of pulmonary function studies EXAMINATION: CT CHEST WITHOUT IV CONTRAST INDICATION: R94.2 - Abnormal results of pulmonary function studies COMPARISON: Comparison is made with the prior examination dated 10/14/2016. TECHNIQUE: Helical CT scan of the chest was performed without intravenous contrast. Coronal and sagittal reformatted images were generated and reviewed. This CT exam was performed with one or more of the following dose reduction techniques: automated exposure control, adjustment of the mA and/or kV according to patient size, use of iterative reconstruction technique. DLP: 400 mGy-cm CHEST: THYROID: The thyroid is unremarkable. LUNGS: There is mild subpleural scarring in both lungs with minimal thickening of interlobular septae. No significant emphysema. There are no abnormal pulmonary nodules or airspace opacities. MEDIASTINUM: There is no mediastinal lymphadenopathy. AGUILA: Evaluation of the hilar regions is limited by lack of intravenous contrast material. CARDIOVASCULATURE: The heart is normal in size. There is no pericardial effusion. The thoracic aorta is normal in caliber. There is dilatation of the main pulmonary artery system with pulmonary arterial hypertension. DEGREE OF CORONARY CALCIFICATION: mild PLEURA: There is no pleural effusion. No pneumothorax. MAIN AIRWAYS: The mainstem bronchi and proximal branches are patent. AXILLA: There is no axillary lymphadenopathy. BONES AND SOFT TISSUES: Unremarkable UPPER ABDOMEN: Again seen is a 2.1 cm cyst in the left lobe of the liver. There is a 3.0 x 2.2 cm partially calcified right adrenal mass as seen previously. The spleen and left adrenal gland have an unremarkable unenhanced appearance. CT/CT chest wo IV con IMPRESSION: 1. Mild subpleural scarring with minimal thickening of interlobular septae in both lungs. 2. Findings consistent with pulmonary arterial hypertension. Electronically signed by: Benja Obando MD 10/07/2025 01:56 PM EST Dictated By: Benja Obando MD Signed By: <Electronically signed by Benja Obando MD in OV> 10/07/25 1356 DD/ 1304 TD/TT: 09/30/25 1320 Process Improvement Analyst: Assessment & Plan Assessment & Plan (1) Asthma: Code(s): J45.909 - Unspecified asthma, uncomplicated Category: Medical (2) Obstructive sleep apnea: Code(s): G47.33 - Obstructive sleep apnea (adult) (pediatric) Category: Medical (3) Nocturnal hypoxemia: Code(s): G47.34 - Idiopathic sleep related nonobstructive alveolar hypoventilation Category: Medical (4) Dyspnea: Code(s): R06.00 - Dyspnea, unspecified Category: Medical Plan At this time Mere continues with suboptimal effect with Symbicort, will switch to Trelegy. She is aware to call if symptoms persist. Prior PFT revealed moderate restrictive ventilatory defect with no bronchodilator response. D ecreased expiratory reserve volume suggests extrathoracic restriction likely secondary to abdominal obesity. Combination of decreased diffusion capacity with restrictive ventilatory defect suggests underlying pulmonary parenchymal disease and was sent for chest CT which we reviewed today. Reviewed chest CT suggestive of pulmonary hypertension, will send for echo and notify PCP of incidental findings on liver and adrenals. Reviewed CPAP compliance report for the last 30 days which demonstrates 100% use greater than 4 hours with settings 6-20 cm H2O AHI 1.4 minimal leaking. She reports improvement in sleep however continues with difficulty falling asleep and staying asleep, awaiting overnight oximetry which was sent in June to however patient has yet to receive a phone call will look into this. She also noted ongoing palpitations and tachycardia, will enter cardiology referral. All questions were answered and patient is in agreement of plan. Will follow up in 2-3 months or sooner if needed. Orders: Orders CA echo transthoracic complete Today R06.00 - Dyspnea, unspecified Referrals Cardiology Referral R00.2 - Palpitations Medications: New erlprhfahzm-kuevutzdi-ebntnkgk 200-62.5-25 mcg (Trelegy Ellipta) 1 inh inhalation DAILY 60 ea 3RF Refilled albuterol sulfate 90 mcg/actuation 2 puffs inhalation Q4-6H PRN 1 ea 3RF shortness of breath or wheezing Coding Level of Care Code Est Pt Level 4 (68865) Add On Problem Visit Only Diagnoses Asthma J45.909 Obstructive sleep apnea G47.33 Nocturnal hypoxemia G47.34 Dyspnea R06.00
--- OUTSIDE RECORDS SUMMARY | 2025-10-07 16:20 | XMS_ITS | Encounter Summary ---
Author Organization [facility] Prior to 08/17/2024 Address [address] [place] [address] Care Team Providers Care Linux Consultant Name Role Phone Joy Enriquez MD Primary Care Provider Encounter Details Date Type Department Care Team Description 03/11/2020 Hospital Medical Records [address] [place] [address] Rolando Duncan Social History Tobacco Use Types Packs/Day Years Used Date Smoking Tobacco: Never Smokeless Tobacco: Never Alcohol Use Standard Drinks/Week Comments No 0 (1 standard drink = 0.6 oz pur e alcohol) none for 15 years Alcohol Habits Answer Date Recorded How often do you have a drink containing alcohol ? Never 12/20/2019 How many drinks containing a lcohol do you have on a typical day when you are drinking? Not asked How often do you have six or more drinks on one occasion? Not asked Sex Assigned at Date Recorded Not on file documented as of this encounter Plan of Treatment Not on file documented as of this encounter Visit Diagnoses Not on filedocumented in this encounter Care Teams Linux Consultant Relationship Specialty Start Date End Date Joy Enriquez MD [address] [place] [address] PCP - General 05/31/05 documented as of this encounter
--- OUTSIDE RECORDS SUMMARY | 2025-10-07 16:20 | XMS_ITS | Encounter Summary ---
Author Organization [facility] Prior to 08/17/2024 Address [address] [place] [address] Care Team Providers Care Sample Washer Name Role Phone Joy Enriquez MD Primary Care Provider [phone] Reason for Visit * Reason Comments E-prescribe Rx Request Encounter Details Date Type Department Care Team Description 12/06/2019 Refill Adult Medicine [address] [address] Nasra Virgen PA-C E-prescribe Rx Request Social History Tobacco Use Types Packs/Day Years Used Date Smoking Tobacco: Never Smokeless Tobacco: Never Alcohol Use Standard Drinks/Week Comments Yes 0 (1 standard drink = 0.6 oz [...] on file documented as of this encounter Miscellaneous Notes * Telephone Encounter - Crystal Wang C.M.A. - 12/06/2019 11:05 AM EST Message left for patient to return my call, needs appt * Telephone Encounter - Joy Enriquez MD - 12/06/2019 11:02 AM EST I am not filling this; she has not been seen, she was told she needs appt and has no appt scheduled. Once appt scheduled to be seen within 30 days, will consider refill to last until appt * Telephone Encounter - Crystal Wang C.M.A. - 12/06/2019 10:57 AM EST NILDA 02/27/19 NOV none Message left for patient to return my call. Would you send a short rx? Lab Results Component Value Date NA 142 06/05/2018 K 3.7 06/05/2018 CO2 22.8 06/05/2018 CL 104 06/05/2018 BUN 16 06/05/2018 CREAT 1.0 06/05/2018 GLU 81 03/19/2003 CA 9.8 06/05/2018 GFR 60 06/05/2018 * Telephone Encounter - Isa Joyner - 12/06/2019 10:22 AM EST Patient would like script to be: E-PRESCRIBED/FAXED TO PHARMACY WHEN WAS THE PATIENT'S LAST APPOINTMENT IN ADULT MEDICINE? 02/27/19 WHEN WAS THE LAST TIME THE PATIENT SAW THEIR PCP? 10/06/17 Does patient have an upcoming appointment? No-no answer, no voicemail documented x2 (Please verify telephone contact #'s at next phone call) (THE MEDICATION REQUESTED IS ON THE MED LIST ABOVE) All of the medications requested were on the CURRENT MEDS list Did you check the Pharmacy information above?: YES Patient wants: 90 -day supply Is this a mail order prescription request ? NO If the refill is from a FAXED refill request what is the RX # listed on the fax? N/A Patients current insurance carrier is: Payor: [employer] / Plan: HMO $20 MERINO / Product Type: HMO [id number] Insurance ID #: [id number] documented in this encounter Plan of Treatment Not on file documented as of this encounter Visit Diagnoses Not on filedocumented in this encounter Care Teams Sample Washer Relationship Specialty Start Date End Date Joy Enriquez MD [address] [place], [place] [phone] PCP - General 05/31/05 documented as of this encounter
--- OUTSIDE RECORDS SUMMARY | 2025-10-07 16:20 | XMS_ITS | Encounter Summary ---
Author Organization [facility] Prior to 08/17/2024 Address [address] [place] [address] Care Team Providers Care Senior Mechanical Development Engineer Name Role Phone Joy Enriquez MD Primary Care Provider [phone] Reason for Visit * Reason Comments E-prescribe Rx Request Encounter Details Date Type Department Care Team Description 03/11/2022 Refill Adult Medicine [facility] [address] [place] [address] Nena Andrew PA-C [address] [place] [address] E-prescribe Rx Request Social History Tobacco Use [...] encounter Miscellaneous Notes * Telephone Encounter - Cheri Yo - 03/12/2022 12:26 PM EDT Elaine 02/08/22 Ov 09/02/22 Patient made aware a 7 day supply narendra be sent needs labs done overdue . Please advise last filled 07/23/21 for 90 day Lab Results Component Value Date CHOL 188 06/18/2021 LDL 115 06/18/2021 HDL 47 06/18/2021 TRIG 132 06/18/2021 SGOT 27 06/18/2021 SGPT 23 06/18/2021 * Telephone Encounter - Sandra Matthew - 03/12/2022 11:21 AM EDT Patient would like script to be: E-PRESCRIBED/FAXED TO PHARMACY WHEN WAS THE PATIENT'S LAST APPOINTMENT IN ADULT MEDICINE? 02/08/22 WHEN WAS THE LAST TIME THE PATIENT SAW THEIR PCP? 09/01/20 Does patient have an upcoming appointment? Yes 09/02/22 (THE MEDICATION REQUESTED IS ON THE MED [...] N/A Patients current insurance carrier is: Payor: [facility] PL[facility] / Plan: [facility] TYPE III $15/$22 / Product Type: HMO [id number] Insurance ID #: [id number] documented in this encounter Plan of Treatment Not on file documented as of this encounter Visit Diagnoses Not on filedocumented in this encounter Care Teams Senior Mechanical Development Engineer Relationship Specialty Start Date End Date Joy Enriquez MD [address] [place] [id number] PCP - General 05/31/05 documented as of this encounter
--- OUTSIDE RECORDS SUMMARY | 2025-10-07 16:20 | XMS_ITS | Clinical Summary ---
Author Organization [facility] Prior to 03/16/25 Address [address] [place] [address] Care Team Providers Care Plant Pathologist Name Role Phone Joy Enriquez MD Primary Care Provider [phone] Allergies No known active allergies Medications Medication [...] age to complete this topic Care Teams Plant Pathologist Relationship Specialty Start Date End Date Joy Enriquez MD PCP - General Internal Medicine 02/27/19
--- OUTSIDE RECORDS SUMMARY | 2025-10-07 16:20 | XMS_ITS | Encounter Summary ---
Author Organization [facility] Prior to 08/17/2024 Address [address] [place] [address] Care Team Providers Care Coffee Urn Attendant Name Role Phone Joy Enriquez MD Primary Care Provider Encounter Details Date Type Department Care Team Description 03/05/2020 Hospital Medical Records [address] [place] [address] Bree You MD Social History Tobacco Use Types Packs/Day Years [...] on filedocumented in this encounter Care Teams Coffee Urn Attendant Relationship Specialty Start Date End Date Joy Enriquez MD [address] [place] [address] PCP - General 05/31/05 documented as of this encounter
--- OUTSIDE RECORDS SUMMARY | 2025-10-07 16:20 | XMS_ITS | Encounter Summary ---
Author Organization [facility] Prior to 08/17/2024 Address [address] [place] [address] Care Team Providers Care Member Of The Legislative Council Name Role Phone Joy Enriquez MD Primary Care Provider [phone] Encounter Details Date Type Department Care Team Description 04/26/2011 Phlebotomy Instructor Report Medical Records [address] [place] [address] Roger Call Social History Tobacco Use Types Packs/Day Years [...] on filedocumented in this encounter Care Teams Member Of The Legislative Council Relationship Specialty Start Date End Date Joy Enriquez MD [address] [place], [place] [phone] PCP - General 05/31/05 documented as of this encounter
--- OUTSIDE RECORDS SUMMARY | 2025-10-07 16:20 | XMS_ITS | Encounter Summary ---
Author Organization [facility] Prior to 08/17/2024 Address [address] [place] [address] Care Team Providers Care Forestry Contractor Name Role Phone Joy Enriquez MD Primary Care Provider [phone] Encounter Details Date Type Department Care Team Description 06/02/2011 Print Project Manager Report Medical Records [address] [place] [address] Nirav Edwards MD Social History Tobacco Use Types Packs/Day [...] on filedocumented in this encounter Care Teams Forestry Contractor Relationship Specialty Start Date End Date Joy Enriquez MD [address] [place], [place] [phone] PCP - General 05/31/05 documented as of this encounter
--- OUTSIDE RECORDS SUMMARY | 2025-10-07 16:21 | XMS_ITS | Encounter Summary ---
Author Organization [facility] Prior to 08/17/2024 Address [address] [place] [address] Care Team Providers Care Tufter Hand Name Role Phone Joy Enriquez MD Primary Care Provider [phone] Encounter Details Date Type Department Care Team Description 08/23/2022 Refill Adult Medicine [address] [id number] Joy Enriquez MD [address] [place] [phone] Social History Tobacco Use Types Packs/Day Years [...] on filedocumented in this encounter Care Teams Tufter Hand Relationship Specialty Start Date End Date Joy Enriquez MD [address] [place] [address] PCP - General 05/31/05 documented as of this encounter
--- OUTSIDE RECORDS SUMMARY | 2025-10-07 16:21 | XMS_ITS | Encounter Summary ---
Author Organization [facility] Prior to 08/17/2024 Address [address] [place] [address] Care Team Providers Care Imaging Nurse Name Role Phone Joy Enriquez MD Primary Care Provider [phone] Encounter Details Date Type Department Care Team Description 09/04/2020 [facility] Medical Records [address] [place] [address] Abstract, Provider Social History Tobacco Use Types Packs/Day Years [...] Assigned at Date Recorded Not on file COVID-19 Exposure Response Date Recorded In the last month, have you been in contact with someone who was confirmed or suspected to have Coronavirus / COVID-19? No / Unsure 09/01/2020 10:25 AM EST documented as of this encounter Plan of Treatment Not on file documented as of this encounter Visit Diagnoses Not on filedocumented in this encounter Care Teams Imaging Nurse Relationship Specialty Start Date End Date Joy Enriquez MD [address] [place] [phone] PCP - General 05/31/05 documented as of this encounter
--- OUTSIDE RECORDS SUMMARY | 2025-10-07 16:21 | XMS_ITS | Encounter Summary ---
Author Organization [facility] Prior to 08/17/2024 Address [address] [place] [address] Care Team Providers Care Computer Network And Systems Engineer Name Role Phone Joy Enriquez MD Primary Care Provider [phone] Reason for Visit * Reason Comments E-prescribe Rx Request Encounter Details Date Type Department Care Team Description 02/18/2023 Refill Pulmonology - [place] [address] [facility] [address] [place] [address] Krystian Cotto MD [address] [place] [phone] E-prescribe Rx Request Social History Tobacco Use [...] encounter Miscellaneous Notes * Telephone Encounter - Fermin Ramírez CMA - 02/22/2023 1:32 PM EDT NILDA 11/24/22 NOV 06/03/23 * Telephone Encounter - Becky Carcamo - 02/18/2023 1:28 PM EDT Patient would like script to be: E-PRESCRIBED/FAXED TO PHARMACY WHEN WAS THE PATIENT'S LAST APPOINTMENT IN ADULT MEDICINE? 11/24/22 WHEN WAS THE LAST TIME THE PATIENT SAW THEIR PCP? Same as above Does patient have an upcoming appointment? Yes 06/03/23 (THE MEDICATION REQUESTED IS ON THE MED LIST ABOVE) All of the medications requested were on the CURRENT MEDS list Did you check the Pharmacy information above?: YES Patient wants: 30 -day supply Is this a mail order prescription request ? NO If the refill is from a FAXED refill request what is the RX # listed on the fax? N/A Patients current insurance carrier is: Payor: [facility] PUBLIC PLAN / Plan: [employer] $0/$22 JEANNETTE 81 / Product Type: OTHER Insurance ID #: [id number] documented in this encounter Plan of Treatment Not on file documented as of this encounter Visit Diagnoses Diagnosis Moderate persistent asthma without complication Unspecified asthma documented in this encounter Care Teams Computer Network And Systems Engineer Relationship Specialty Start Date End Date Joy Enriquez MD [address] [place] [address] PCP - General 05/31/05 documented as of this encounter
--- OUTSIDE RECORDS SUMMARY | 2025-10-07 16:21 | XMS_ITS | Encounter Summary ---
Author Organization [facility] Prior to 08/17/2024 Address [address] [place] [address] Care Team Providers Care Saw Feeder Name Role Phone Joy Enriquez MD Primary Care Provider [phone] Reason for Visit * Reason Onset Date Comments Faxed Order 08/23/2020 rory Encounter Details Date Type Department Care Team Description 08/23/2020 Telephone Adult Medicine [address] [address] Joy Enriquez MD [address] [place] [phone] Faxed Order (rory) Social History Tobacco Use Types Packs/Day Years [...] have Coronavirus / COVID-19? No / Unsure 08/13/2020 2:04 PM EDT documented as of this encounter Miscellaneous Notes * Telephone Encounter - Edie Nuñez - 08/23/2020 10:23 AM EST Placed in doctors bin: royr Please Review, Sign & Fax when completed. documented in this encounter Plan of Treatment Not on file documented as of this encounter Visit Diagnoses Not on filedocumented in this encounter Care Teams Saw Feeder Relationship Specialty Start Date End Date Joy Enriquez MD [address] [place] [phone] PCP - General 05/31/05 documented as of this encounter
--- OUTSIDE RECORDS SUMMARY | 2025-10-07 16:21 | XMS_ITS | Encounter Summary ---
Author Organization [facility] Prior to 08/17/2024 Address [address] [place] [address] Care Team Providers Care Cook Chili Name Role Phone Joy Enriquez MD Primary Care Provider [phone] Reason for Visit * Reason Onset Date Comments Medication 04/08/2021 Encounter Details Date Type Department Care Team Description 04/08/2021 Refill Gastroenterology [facility] [address] [facility] [address] [place] [address] Ash Lees MD [address] [place] [address] Medication Social History Tobacco Use Types Packs/Day Years [...] have Coronavirus / COVID-19? No / Unsure 03/11/2021 2:27 PM EDT documented as of this encounter Plan of Treatment Not on file documented as of this encounter Visit Diagnoses Not on filedocumented in this encounter Care Teams Cook Chili Relationship Specialty Start Date End Date Joy Enriquez MD [address] [place] [phone] PCP - General 05/31/05 documented as of this encounter
--- OUTSIDE RECORDS SUMMARY | 2025-10-07 16:21 | XMS_ITS | Encounter Summary ---
Author Organization [facility] Prior to 08/17/2024 Address [address] [place] [address] Care Team Providers Care Integration Lead Name Role Phone Joy Enriquez MD Primary Care Provider [phone] Reason for Visit * Reason Onset Date Comments refill request 02/29/2024 Encounter Details Date Type Department Care Team Description 02/29/2024 Refill Adult Medicine [address] [phone] Joy Enriquez MD [address] [place] [address] [phone] refill request Social History Tobacco Use Types Packs/Day Years [...] encounter Miscellaneous Notes * Telephone Encounter - Marjorie Solorzano M.A. - 02/29/2024 3:09 PM EDT refused too soon * Telephone Encounter - Emily Nickerson - 02/29/2024 2:54 PM EDT Patient would like script to be: E-PRESCRIBED/FAXED TO PHARMACY PATIENT WILL BE GOING ON A CRUISE FROM 03/15/24-03/31/24 AND WILL BE 10 PILLS SHORT FOR HER hydrochlorothiazide. SHE IS ASKING IF SHE CAN GET ENOUGH TO COVER THE CRUISE. WHEN WAS THE PATIENT'S LAST APPOINTMENT IN ADULT MEDICINE? 11/17/23 WHEN WAS THE LAST TIME THE PATIENT SAW THEIR PCP? 06/09/23 Does patient have an upcoming appointment? Yes 05/17/24 (THE MEDICATION REQUESTED IS ON THE MED [...] N/A Patients current insurance carrier is: Payor: [facility] PUBLIC PLAN / Plan: DIRECT CONNECT $0/$22 GILEAD [id number] / Product Type: OTHER documented in this encounter Plan of Treatment Not on file documented as of this encounter Visit Diagnoses Not on filedocumented in this encounter Care Teams Integration Lead Relationship Specialty Start Date End Date Joy Enriquez MD [address] [place] [address] PCP - General 05/31/05 documented as of this encounter
--- OUTSIDE RECORDS SUMMARY | 2025-10-07 16:21 | XMS_ITS | Encounter Summary ---
Author Organization [facility] Prior to 08/17/2024 Address [address] [place] [address] Care Team Providers Care Extrusion Process Operator Name Role Phone Joy Enriquez MD Primary Care Provider [phone] Encounter Details Date Type Department Care Team Description 05/14/2020 Home Health Certification Medical Records [address] [place], [place] [phone] [place] [phone] Social History Tobacco Use Types Packs/Day Years [...] on filedocumented in this encounter Care Teams Extrusion Process Operator Relationship Specialty Start Date End Date Joy Enriquez MD [address] [place] [address] PCP - General 05/31/05 documented as of this encounter
--- OUTSIDE RECORDS SUMMARY | 2025-10-07 16:21 | XMS_ITS | Encounter Summary ---
Author Organization [facility] Prior to 08/17/2024 Address [address] [place] [address] Care Team Providers Care Audio Production Instructor Name Role Phone Joy Enriquez MD Primary Care Provider [phone] Reason for Visit * Reason Onset Date Comments Wound Infection 01/22/2015 Leg Swelling 01/22/2015 Encounter Details Date Type Department Care Team Description 01/22/2015 Telephone Adult Medicine [address] [phone] Joy Enriquez MD [address] [place] [address] [phone] Wound Infection; Leg Swelling Social History Tobacco Use Types Packs/Day Years [...] encounter Miscellaneous Notes * Telephone Encounter - Daksha Dalton R.N. - 01/22/2015 1:00 PM EDT [phone] (home) [phone] (work) call placed to patient She states she saw Dr Manrique a couple of days ago and he scraped some skin off the wound Yesterday the leg started to swell from below knee to foot The wound is on her R leg below the knee There is no fever the leg is swollen from knee wound to ankle It is painful to touch and warm very little yellow drainage she did call Dr Garduno but was told to call pcp appt scheduled for tomorrow morning * Telephone Encounter - Ceci Morrison - 01/22/2015 12:35 PM EDT Symptoms patient is presenting: Patient has a wound on her right leg below the knee that is swollenand warm to the touch. How long has patient had these symptoms?: ongoing PCP: Joy Enriquez Payor: [employer] / Plan: PPO $20 CARBON [id number] / Product Type: PPO [id number] documented in this encounter Plan of Treatment Not on file documented as of this encounter Visit Diagnoses Not on filedocumented in this encounter Care Teams Audio Production Instructor Relationship Specialty Start Date End Date Joy Enriquez MD [address] [place] [address] PCP - General 05/31/05 documented as of this encounter
--- OUTSIDE RECORDS SUMMARY | 2025-10-07 16:21 | XMS_ITS | Encounter Summary ---
Author Organization [facility] Prior to 08/17/2024 Address [address] [place] [address] Care Team Providers Care Drawing Operator Name Role Phone Joy Enriquez MD Primary Care Provider [phone] Reason for Visit * Reason Onset Date Comments refill request 06/17/2021 Encounter Details Date Type Department Care Team Description 06/17/2021 Telephone Adult Medicine [facility] [address] [place] [address] [phone] Joy Enriquez MD [address] [place] [address] [phone] refill request Social History Tobacco Use Types [...] encounter Miscellaneous Notes * Telephone Encounter - Vesna Xiao M.A. - 06/18/2021 10:33 AM EDT I called and spoke with patient. She is currently in the parking lot to get her labs drawn. * Telephone Encounter - Altaf More C.M.A. - 06/17/2021 2:33 PM EDT NILDA 03/05/21 F/U appt 07/17/21 Lab Results Component Value Date NA 143 06/27/2020 K 3.6 06/27/2020 CO2 28 06/27/2020 CL 109 06/27/2020 BUN 15 06/27/2020 CREAT 0.98 06/27/2020 GLU 83 06/27/2020 CA 9.2 06/27/2020 GFR 58 06/27/2020 * Telephone Encounter - Becky Arellano - 06/17/2021 2:31 PM EDT Patient would like script to be: E-PRESCRIBED/FAXED TO PHARMACY WHEN WAS THE PATIENT'S LAST APPOINTMENT IN ADULT MEDICINE? 03/05/21 WHEN WAS THE LAST TIME THE PATIENT SAW THEIR PCP? 09/01/20 Does patient have an upcoming appointment? Yes 07/17/21 (THE MEDICATION REQUESTED IS ON THE MED LIST ABOVE) All of the medications requested were on the CURRENT MEDS list Did you check the Pharmacy information above?: YES Patient wants: 90 -day supply Is this a mail order prescription request ? NO If the refill is from a FAXED refill request what is the RX # listed on the fax? [phone] Patients current insurance carrier is: Payor: Yu R[employer] [facility] / Plan: [employer] TYPE 3 / Product Type: HMO [id number] Insurance ID #: PENDING documented in this encounter Plan of Treatment Not on file documented as of this encounter Visit Diagnoses Diagnosis Anxiety Anxiety state, unspecified documented in this encounter Care Teams Drawing Operator Relationship Specialty Start Date End Date Joy Enriquez MD [address] [place] [address] PCP - General 05/31/05 documented as of this encounter
--- OUTSIDE RECORDS SUMMARY | 2025-10-07 16:21 | XMS_ITS | Encounter Summary ---
Author Organization [facility] Prior to 08/17/2024 Address [address] [place] [address] Care Team Providers Care Composite Mechanic Name Role Phone Joy Enriquez MD Primary Care Provider [phone] Encounter Details Date Type Department Care Team Description 01/28/2016 Hospital Medical Records [address] [place] [address] Baljit Jensen [address] [place] [address] [phone] (Work) Social History Tobacco Use Types Packs/Day Years [...] on filedocumented in this encounter Care Teams Composite Mechanic Relationship Specialty Start Date End Date Joy Enriquez MD [address] [place], [place] [phone] PCP - General 05/31/05 documented as of this encounter
--- OUTSIDE RECORDS SUMMARY | 2025-10-07 16:21 | XMS_ITS | Encounter Summary ---
Author Organization [facility] Prior to 08/17/2024 Address [address] [place] [address] Care Team Providers Care Cellophaner Name Role Phone Joy Enriquez MD Primary Care Provider [phone] Reason for Visit * Reason Onset Date Comments Prior Authorization 04/13/2023 PRIOR AUTH D ENIED Encounter Details Date Type Department Care Team Description 04/13/2023 Telephone Cardio PVC Med [address] [place] [address] [address] [place] [address] Dominic Muse MD Prior Authorization (PRIOR AUTH DENIED) Social History Tobacco Use Types Packs/Day Years [...] Exposure Response Date Recorded In the last 10 days, have yo u been in contact with someone who was confirmed or suspected to have Coronavirus/COVID-19? No / Unsure 03/25/2023 8:19 AM EDT documented as of this encounter Miscellaneous Notes * Telephone Encounter - Jessica Berg - 04/13/2023 10:12 AM EDT Auth for NUC denied, lmm for pt with self pay cost of: $3,296 and advised that appt for 04/14/23 is cancelled. documented in this encounter Plan of Treatment Not on file documented as of this encounter Visit Diagnoses Not on filedocumented in this encounter Care Teams Cellophaner Relationship Specialty Start Date End Date Joy Enriquez MD [address] [place] [address] PCP - General 05/31/05 documented as of this encounter
--- OUTSIDE RECORDS SUMMARY | 2025-10-07 16:21 | XMS_ITS | Encounter Summary ---
Author Organization [facility] Prior to 08/17/2024 Address [address] [place] [address] Care Team Providers Care Perinatal Instructor Name Role Phone Joy Enriquez MD Primary Care Provider [phone] Reason for Visit * Reason Onset Date Comments Faxed Refill 12/24/2020 Encounter Details Date Type Department Care Team Description 12/24/2020 Refill Pulmonology - [place] [address] [facility] [address] [place] [address] Ben Sotelo MD [address] [facility] [address] [place] [address] Faxed Refill Social History Tobacco Use Types Packs/Day Years [...] encounter Miscellaneous Notes * Telephone Encounter - Rosette Desai - 12/24/2020 4:30 PM EST NILDA- 10.20.2020Aug- 02.19.2021 30 day Sent to covering provider documented in this encounter Plan of Treatment Not on file documented as of this encounter Visit Diagnoses Diagnosis Obstructive sleep apnea Obstructive sleep apnea (adult) (pediatric) COVID-19 virus infection Moderate persistent asthma without complication Unspecified asthma TUAN (obstructive sleep apnea) moderate AHI 18 Obstructive sleep apnea (adult) (pediatric) Morbid obesity with BMI of 45.0-49.9, adult (HCC) History of upper respiratory infection Personal history of unspecified disease of respiratory system On home oxygen therapy Dependence on supplemental oxygen documented in this encounter Care Teams Perinatal Instructor Relationship Specialty Start Date End Date oJy Enriquez MD [address] [place] [address] PCP - General 05/31/05 documented as of this encounter
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
--- OUTSIDE RECORDS SUMMARY | 2025-10-07 16:21 | XMS_ITS | Clinical Summary ---
Author Organization [facility] [address] [facility] Address [address] [place] [address] Phone Care Team Providers Care Mop Handle Assembler Name Role Phone Joy Enriquez MD Primary Care Provider [phone] Allergies No known active allergies Medications albuterol [...] TUAN (obstructive sleep apnea) 03/31/2016 Overview (08/27/2024): [facility] Home Polysomnogram: Date 06/24/2017; AHI [...] 11:00 AM EST Office Visit Adult Medicine [address] [phone] Nena Andrew PA Encounter for annual wellness visit (AWV) in Medicare patient (Primary Dx); Prediabetes; TUAN (obstructive sleep apnea); Morbid obesity with BMI of 45.0-49.9, adult ([facility] V24, [facility] V28); Primary hypertension; Hypercholesterolemia; Gastroesophageal reflux disease, unspecified whether esophagitis present; Stage 3a chronic kidney disease ([facility] V24, [facility] V28); Moderate persistent asthma without complication 07/31/2025 Telephone Adult Medicine [address] [phone] Joy Enriquez MD from Last 3 Months Immunizations Immunization Administration Dates Next Due Hepatitis B (Odcqxds-I-Orkaz , Recombivax HB-Adult) 19yo and older 07/02/2005,06/02/2005 [...] Pure hypercholesterolemia 08/04/2007 Onychomycosis 08/02/2013 Morbid obesity ([facility] V24, [facility] V28) 009 TUAN (obstructive sleep apnea) 03/31/2016 COVID-19 virus infection 04/16/2020 Anxiety 09/01/2020 Asthma 03/23/2017 CKD (chronic kidney disease) stage 3, GFR 30-59 ml/min ([facility] V24, [facility] V28) 03/03/2023 Hypertension 02/23/2006 Prediabetes 03/23/2017 Ventral [...] for your loved ones. For example, child care group leader or elderly care for an older adult? [...] EDT Office Visit Adult Medicine [facility] [address] [place], [place] [phone] Joy Enriquez MD [address] [place], [place] Health Maintenance Due Date Last Done [...] is recommended in 1 year. MAMMO LOCATION: [facility], [address] [place] [address], [address], . -------- FINAL REPORT -------- Dictated By: Angely Coburn Dictated Date: 05/20/2025 17:51 ET Assigned Physician: Angely Coburn Reviewed and Electronically Signed By: Angely Coburn Signed Date: 05/20/2025 17:51 ET Workstation ID: [id number] Transcribed By: Self Edit Transcribed Date: 05/20/2025 [...] is recommended in 1 year. MAMMO LOCATION: [facility], [address] [place] [address], [address], . -------- FINAL REPORT -------- Dictated By: Angely Coburn Dictated Date: 05/20/2025 17:51 ET Assigned Physician: Angely Cbourn Reviewed and Electronically Signed By: Angely Coburn Signed Date: 05/20/2025 17:51 ET Workstation ID: [id number] Transcribed By: Self Edit Transcribed Date: 05/20/2025 17:51 ET us Joy Enriquez MD IMG BI PROCEDURES Final Result * Lipid panel with reflex to direct LDL (03/06/2025 10:33 AM EDT) Cholesterol 163 0 - 200 mg/dL LAB CHEMISTRY METHOD 03/06/2025 12:32 PM [facility] Triglycerides 76 0 - 150 mg/dL LAB CHEMISTRY METHOD 03/06/2025 12:32 PM [facility] HDL 60 >=40 mg/dL LAB CHEMISTRY METHOD 03/06/2025 12:32 PM [facility] LDL Calculated 88 0 - 100 mg/dL LAB CHEMISTRY METHOD 03/06/2025 12:32 PM [facility] VLDL Cholesterol Kj 15.2 mg/dL LAB CHEMISTRY METHOD 03/06/2025 12:32 PM [facility] Non HDL Chol. (LDL+VLDL) 103 <145 mg/dL LAB CHEMISTRY METHOD 03/06/2025 12:32 PM [facility] Chol/HDL Ratio 2.7 0.0 - 4.4 LAB CHEMISTRY METHOD 03/06/2025 12:32 PM [facility] Blood Venous blood specimen / Unknown Venipuncture / Unknown 03/06/2025 10:33 AM EDT 03/06/2025 10:33 AM EDT us Nena ALVES LAB BLOOD ORDERABLES Final Re sult [facility] [address] [place] [address], * Comprehensive metabolic panel (03/06/2025 10:33 AM EDT) Sodium 141 133 - 145 mmol/L LAB CHEMISTRY METHOD 03/06/2025 12:32 PM [facility] Potassium 3.5 3.5 - 5.5 mmol/L LAB CHEMISTRY METHOD 03/06/2025 12:32 PM [facility] Chloride 110 96 - 110 mmol/L LAB CHEMISTRY METHOD 03/06/2025 12:32 PM [facility] CO2 26 21 - 32 mmol/L LAB CHEMISTRY METHOD 03/06/2025 12:32 PM [facility] Anion Gap 5 3 - 11 LAB CHEMISTRY METHOD 03/06/2025 12:32 PM [facility] Glucose 94 70 - 100 mg/dL LAB CHEMISTRY METHOD 03/06/2025 12:32 PM [facility] BUN 16 5 - 25 mg/dL LAB CHEMISTRY METHOD 03/06/2025 12:32 PM [facility] Creatinine 0.92 0.50 - 1.10 mg/dL LAB CHEMISTRY METHOD 03/06/2025 12:32 PM [facility] eGFR 69 >=60 mL/min/1. 73m2 LAB CHEMISTRY METHOD 03/06/2025 12:32 PM [facility] Comment:Calculation based on the Chronic Kidney Disease Epidemiology Collaboration (CKD-EPI) equation refit without adjustment for race. BUN/Creatinine Ratio 17.4 LAB CHEMISTRY METHOD 03/06/2025 12:32 PM EDT [facility] Calcium 9.3 8.5 - 10.5 mg/dL LAB CHEMISTRY METHOD 03/06/2025 12:32 PM [facility] AST (SGOT) 25 10 - 42 unit/L LAB CHEMISTRY METHOD 03/06/2025 12:32 PM [facility] ALT (SGPT) 21 10 - 60 unit/L LAB CHEMISTRY METHOD 03/06/2025 12:32 PM T [facility] Alkaline Phosphatase 82 42 - 121 unit/L LAB CHEMISTRY METHOD 03/06/2025 12:32 PM T [facility] Total Protein 6.9 6.0 - 8.0 g/dL LAB CHEMISTRY METHOD 03/06/2025 12:32 PM [facility] Albumin 3.3 3.2 - 5.0 g/dL LAB CHEMISTRY METHOD 03/06/2025 12:32 PM [facility] Total Bilirubin 0.4 0.0 - 1.4 mg/dL LAB CHEMISTRY METHOD 03/06/2025 12:32 PM [facility] Blood Venous blood specimen / Unknown Venipuncture / Unknown 03/06/2025 10:33 AM EDT 03/06/2025 10:33 AM EDT us Nena ALVES LAB BLOOD ORDERABLES Final Re sult [facility] [address] [place] [address], * BD Bone Density DXA Axial Skeleton [...] (World Health Organization Fracture Risk Assessment) The [facility] of [facility] recommends using National [...] screening schedule based on halima Gonzalez., BANNER November 04, 2011 for patients with osteopenia [...] Signed Date: 09/18/2024 14:56 ET Workstation ID: [id number] Transcribed By: Self Edit Transcribed Date: 09/18/2024 [...] years. (World HealthOrganization Fracture Risk Assessment) The [facility] of [facility] Medicine recommendsusing National Osteoporosis [...] Signed Date: 09/18/2024 14:56 ET Workstation ID: [id number] Transcribed By: Self Edit Transcribed Date: 09/18/2024 14:55 ET Joy Enriquez MD IMG DXA PROCEDURES Final Result * Colonoscopy (04/22/2021) [facility] Colonoscopy No Interpretation , Abstracted Anatomical Region Laterality Modality Other Historical Provider HEALTH MAINTENANCE Final Result * Hepatitis C Screening (09/29/2009) [facility] Hepatitis C Screening Abstracted Historical Provider HEALTH MAINTENANCE Final Result from Last 3 Months or Most Recently Relevant to Health Maintenance Insurance [employer] MED[employer] Care Teams Mop Handle Assembler Relationship Specialty Start Date End Date Joy Enriquez MD [address] [place] [address] PCP - General 05/31/05
--- OUTSIDE RECORDS SUMMARY | 2025-10-07 16:21 | XMS_ITS | Encounter Summary ---
Author Organization [facility] Prior to 08/17/2024 Address [address] [place] [address] Care Team Providers Care Yard Foreman Name Role Phone Joy Enriquez MD Primary Care Provider Reason for Visit * Reason Comments E-prescribe Rx Request Encounter Details Date Type Department Care Team Description 04/16/2022 Refill Adult Medicine [address] [phone] Joy Enriquez MD [address] [place] [address] [phone] E-prescribe Rx Request Social History Tobacco Use [...] suspected to have Coronavirus/COVID-19? No / Unsure 04/09/2022 2:47 PM EDT documented as of this encounter Miscellaneous Notes * Telephone Encounter - Mariama Lisa M.A. - 04/20/2022 9:30 AM EDT Lab Results Component Value Date NA 142 04/02/2022 K 3.5 04/02/2022 CO2 26 04/02/2022 CL 108 04/02/2022 BUN 14 04/02/2022 CREAT 1.07 04/02/2022 GLU 84 04/02/2022 CA 9.2 04/02/2022 GFR 52 04/02/2022 NILDA 02/08/2022 w/Nena MUNGUIA w/PCP 08/2020 Next OV 09/02/2022 w/PCP * Telephone Encounter - Sandra Matthew - 04/20/2022 8:19 AM EDT Patient would like script to [...] N/A Patients current insurance carrier is: Payor: [facility] PUBLIC PLAN / Plan: [facility] TYPE III $15/$22 / Product Type: HMO [id number]-Vwectvx Insurance ID #: PENDING documented in this encounter Plan of Treatment Not on file documented as of this encounter Visit Diagnoses Not on filedocumented in this encounter Care Teams Yard Foreman Relationship Specialty Start Date End Date Joy Enriquez MD [address] [place] [address] PCP - General 05/31/05 documented as of this encounter
--- OUTSIDE RECORDS SUMMARY | 2025-10-07 16:21 | XMS_ITS | Encounter Summary ---
Author Organization [facility] Prior to 08/17/2024 Address [address] [place] [address] Care Team Providers Care Conveyor Line Battery Charger Name Role Phone Joy Enriquez MD Primary Care Provider Reason for Visit * Reason Comments E-prescribe Rx Request Encounter Details Date Type Department Care Team Description 03/12/2022 Refill Adult Medicine [address] [phone] Joy Enriquez MD [address] [place] [address] [phone] E-prescribe Rx Request Social History Tobacco Use [...] Telephone Encounter - Cheri Yo - 03/12/2022 12:56 PM EDT Lv 02/08/22 Ov 09/02/22 Lab Results Component Value Date NA 144 06/18/2021 K 3.7 06/18/2021 CO2 25 06/18/2021 CL 110 06/18/2021 BUN 14 06/18/2021 CREAT 0.84 06/18/2021 GLU 84 06/18/2021 CA 9.2 06/18/2021 GFR > 60 06/18/2021 * Telephone Encounter - Sandra Matthew - 03/12/2022 12:01 PM EDT Patient would like script to [...] N/A Patients current insurance carrier is: Payor: [facility] PUBLIC PLAN / Plan: [facility] TYPE III $15/$22 / Product Type: HMO [id number] Insurance ID #: PENDING documented in this encounter Plan of Treatment Not on file documented as of this encounter Visit Diagnoses Not on filedocumented in this encounter Care Teams Conveyor Line Battery Charger Relationship Specialty Start Date End Date Joy Enriquez MD [address] [place] [phone] PCP - General 05/31/05 documented as of this encounter
--- OUTSIDE RECORDS SUMMARY | 2025-10-07 16:21 | XMS_ITS | Encounter Summary ---
Author Organization [facility] Prior to 08/17/2024 Address [address] [place] [address] Care Team Providers Care Manager Er Name Role Phone Joy Enriquez MD Primary Care Provider [phone] Reason for Visit * Reason Comments E-prescribe Rx Request Encounter Details Date Type Department Care Team Description 02/19/2019 Refill Adult Medicine [address] [phone] Joy Enriquez MD [address] [place] [address] [phone] E-prescribe Rx Request Social History Tobacco Use [...] Telephone Encounter - Crystal Wang C.M.A. - 02/19/2019 10:37 AM EDT 2nd message left for patient to return my call, needs appt for refill on lisinopril. * Telephone Encounter - Joy Enriquez MD - 02/19/2019 10:06 AM EDT She needs appt scheduled before will sign any refill * Telephone Encounter - Crystal Wang C.M.A. - 02/19/2019 9:27 AM EDT LV 06/05/19 No showed 01/24/19 Message left for patient to return my call, letter sent Would you fill a week supply or wait for pt to return my call? Lab Results Component Value Date NA 142 06/05/2018 K 3.7 06/05/2018 CO2 22.8 06/05/2018 CL 104 06/05/2018 BUN 16 06/05/2018 CREAT 1.0 06/05/2018 GLU 81 03/19/2003 CA 9.8 06/05/2018 GFR 60 06/05/2018 * Telephone Encounter - Iron Mix - 02/19/2019 9:23 AM EDT Patient would like script to be: E-PRESCRIBED/FAXED TO PHARMACY WHEN WAS THE PATIENT'S LAST APPOINTMENT IN ADULT MEDICINE? 06/05/18 WHEN WAS THE LAST TIME THE PATIENT SAW THEIR PCP? Same as above Does patient have an upcoming appointment? Letter sent to book next appointment (THE MEDICATION REQUESTED IS ON THE MED [...] N/A Patients current insurance carrier is: Payor: [employer] / Plan: HMO $20 [place] / Product Type: HMO [id number] documented in this encounter Plan of Treatment Not on file documented as of this encounter Visit Diagnoses Not on filedocumented in this encounter Care Teams Manager Er Relationship Specialty Start Date End Date Joy Enriquez MD [address] [place] [id number] PCP - General 05/31/05 documented as of this encounter
--- OUTSIDE RECORDS SUMMARY | 2025-10-07 16:21 | XMS_ITS | Encounter Summary ---
Author Organization [facility] Prior to 08/17/2024 Address [address] [place] [address] Care Team Providers Care Quarter Section Ironer Name Role Phone Joy Enriquez MD Primary Care Provider [phone] Encounter Details Date Type Department Care Team Description 07/11/2020 Telephone Pulmonology [address] [place], [place] [phone] Ben Sotelo MD [address] [place] [phone] Social History Tobacco Use Types Packs/Day Years [...] have Coronavirus / COVID-19? No / Unsure 07/11/2020 11:25 AM EDT documented as of this encounter Plan of Treatment Not on file documented as of this encounter Visit Diagnoses Not on filedocumented in this encounter Care Teams Quarter Section Ironer Relationship Specialty Start Date End Date Joy Enriquez MD [address] [place] [address] PCP - General 05/31/05 documented as of this encounter
--- OUTSIDE RECORDS SUMMARY | 2025-10-07 16:21 | XMS_ITS | Encounter Summary ---
Author Organization [facility] Prior to 08/17/2024 Address [address] [place] [address] Care Team Providers Care Photo Checker And Assembler Name Role Phone Joy Enriquez MD Primary Care Provider [phone] Encounter Details Date Type Department Care Team Description 03/18/2015 Manager E Commerce Report Medical Records [address] [place] [phone] Geovanny Wright MD Social History Tobacco Use Types Packs/Day [...] on filedocumented in this encounter Care Teams Photo Checker And Assembler Relationship Specialty Start Date End Date Joy Enriquez MD [address], [place] [phone] PCP - General 05/31/05 documented as of this encounter
--- OUTSIDE RECORDS SUMMARY | 2025-10-07 16:21 | XMS_ITS | Encounter Summary ---
Author Organization [facility] Prior to 08/17/2024 Address [address] [place] [address] Care Team Providers Care Reporting Specialist Name Role Phone Joy Enriquez MD Primary Care Provider [phone] Encounter Details Date Type Department Care Team Description 06/20/2020 Transfer Records Medical Records [address] [place] [address] Abstract, Provider Social History Tobacco Use Types [...] on filedocumented in this encounter Care Teams Reporting Specialist Relationship Specialty Start Date End Date Joy Enriquez MD [address] [place] [phone] PCP - General 05/31/05 documented as of this encounter
--- OUTSIDE RECORDS SUMMARY | 2025-10-07 16:21 | XMS_ITS | Encounter Summary ---
Author Organization [facility] Prior to 08/17/2024 Address [address] [place] [address] Care Team Providers Care Sales Appointment Coordinator Name Role Phone Joy Enriquez MD Primary Care Provider [phone] Encounter Details Date Type Department Care Team Description 10/08/2020 Director Of Restaurant Report Medical Records [address] [place] [address] Social History Tobacco Use Types Packs/Day Years [...] on filedocumented in this encounter Care Teams Sales Appointment Coordinator Relationship Specialty Start Date End Date Joy Enriquez MD [address] [place], [place] [phone] PCP - General 05/31/05 documented as of this encounter
--- OUTSIDE RECORDS SUMMARY | 2025-10-07 16:21 | XMS_ITS | Encounter Summary ---
Author Organization [facility] Prior to 08/17/2024 Address [address] [place] [address] Care Team Providers Care Manager Administrative Services Name Role Phone Joy Enriquez MD Primary Care Provider [phone] Encounter Details Date Type Department Care Team Description 06/29/2017 Orders Only Medical Records [address] [place] [address] Nena Andrew PA-C [address] [place] [address] Social History Tobacco Use Types Packs/Day Years [...] on file documented as of this encounter Procedures Procedure Name Priority Date/Time Associated Diagnosis Comments OUTSIDE SLEEP STUDY Routine 06/24/2017 documented in this encounter Results * OUTSIDE SLEEP STUDY (06/24/2017) Nena Andrew PA-C PULMONOLOGY documented in this encounter Visit Diagnoses Not on filedocumented in this encounter Care Teams Manager Administrative Services Relationship Specialty Start Date End Date Joy Enriquez MD [address] [place] [phone] PCP - General 05/31/05 documented as of this encounter
--- OUTSIDE RECORDS SUMMARY | 2025-10-07 16:21 | XMS_ITS | Encounter Summary ---
Author Organization [facility] Prior to 08/17/2024 Address [address] [place] [address] Care Team Providers Care Proof Clerk Name Role Phone Joy Enriquez MD Primary Care Provider [phone] Isabel Solitario Primary Care Provider [phone] [facility], Pcp Primary Care Provider [facility] Isabel Solitario Primary Care Provider [phone] Marlene Garay Primary Care Provider Unav ailable Encounter Details Date Type Department Care Team Description 04/14/1999 [employer] General Surgery [address] [place] [address] [phone] Nile Harris [address] [place] [address] [phone] UNSPECIFIED DISORDER OF GALLBLADDER Social History Tobacco Use Types Packs/Day Years Used Date Smoking Tobacco: Never Assessed Alcohol Habits Answer Date Recorded How often [...] Procedure Name Priority Date/Time Associated Diagnosis Comments LAPAROSCOPY, CHOLECYSTECTOMY 04/14/1999 12:00 AM EDT Unspecified Disorder Of Gallbladder documented in this encounter Visit Diagnoses Diagnosis Unspecified disorder of gallbladder documented in this encounter Care Teams Proof Clerk Relationship Specialty Start Date End Date Joy Enriquez MD [address] [place] [address] PCP - General 8/15/05 Isabel Solitario [address] [place] [address] PCP - General 04/03/01 05/30/05 [facility], Pcp PCP - General 09/14/00 04/02/01 Isabel Solitario [address] [place] [id number] PCP - General 12/25/99 09/13/00 Marlene Garay PCP - General 04/16/1998 12/24/99 documented as of this encounter
--- OUTSIDE RECORDS SUMMARY | 2025-10-07 16:21 | XMS_ITS | Encounter Summary ---
Author Organization [facility] Prior to 08/17/2024 Address [address] [place] [address] Care Team Providers Care Commercial Loan Closer Name Role Phone Joy Enriquez MD Primary Care Provider [phone] Reason for Visit * Reason Comments E-prescribe Rx Request Encounter Details Date Type Department Care Team Description 11/23/2015 Refill Adult Medicine [address] [phone] Joy Enriquez MD [address] [place] [address] [phone] E-prescribe Rx Request Social History Tobacco Use [...] encounter Miscellaneous Notes * Telephone Encounter - Rosie Griffin L.P.N. - 11/24/2015 9:16 AM EST Med refusd; patient needs an appt with PCP * Telephone Encounter - Alonso Mix - 11/24/2015 7:15 AM EST Patient would like script to be: E-PRESCRIBED/FAXED TO PHARMACY WHEN WAS THE PATIENT'S LAST APPOINTMENT IN ADULT MEDICINE? 03-31-15 WHEN WAS THE LAST TIME THE PATIENT SAW THEIR PCP? Same as above Does patient have an upcoming appointment? Yes 04-12-16 (THE MEDICATION REQUESTED IS ON THE MED LIST ABOVE) All of the medications requested were on the CURRENT MEDS list Did you check the Pharmacy information above?: YES Patient wants: 30 -day supply Is this a mail order prescription request ? NO Patients current insurance carrier is: Payor: Patient Home Monitoring / Plan: [facility] TYPE II $10/$18 / Product Type: HMO [id number] documented in this encounter Plan of Treatment Not on file documented as of this encounter Visit Diagnoses Not on filedocumented in this encounter Care Teams Commercial Loan Closer Relationship Specialty Start Date End Date Joy Enriquez MD [address] [place] [address] [phone] PCP - General 05/31/05 documented as of this encounter
== END 2025-10-07 13:34 | disposition home or self-care (01) ==
LOC: HO.HPS 13:02
PROVIDERS: PCP Internal Medicine; Visit Provider Nurse Practitioner Family
DX: J45.909 Unspecified asthma, uncomplicated (principal); G47.33 Obstructive sleep apnea (adult) (pediatric); G47.34 Idiopathic sleep related nonobstructive alveolar hypoventilation; R06.00 Dyspnea, unspecified
CPT/HCPCS: 99214; G2211

== ENCOUNTER → 2025-10-07 13:01 | Outpatient (BNVA) | payer MEDICARE, SELFPAY | PROVIDERS: PCP Internal Medicine; Visit Provider Nurse Practitioner Family | DX: G47.33 Obstructive sleep apnea (adult) (pediatric) (principal); G47.34 Idiopathic sleep related nonobstructive alveolar hypoventilation; J45.909 Unspecified asthma, uncomplicated; R06.00 Dyspnea, unspecified; Z79.899 Other long term (current) drug therapy | CPT/HCPCS: 99212 ==